=== PATIENT | female | born 1955 | race African-American/Black ===

== ENCOUNTER 2022-05-18 12:02 | Emergency (ER) | payer OTHER ==
--- OUTSIDE RECORDS SUMMARY | 2022-05-18 12:15 | XMS REPORT | Continuity of Care Document ---
:1955 Author Organization [facility] t Address [address] [place] [address] Care Team Providers Name Role Phone Ameya Mckinnon DO Primary Care Physician SHARMIN PATEL Attending Clinician Unavailable CHARLY ROJAS Attending Clinician Unavailable RAJ REYES Attending Clinician Unavailable VIGNESH JARAMILLO K.HDavid Attending Clinician Unavailable AWA PANDYA Attending Clinician Unavailable BRI ALONZO Attending Clinician Unavailable Clint MTZ Sendrachel K.H. Attending Clinician Raj Reyes MD Attending Clinician Lin Gordon PA-C Attending Clinician Pob, Adc Lab Main Attending Clinician Unavailable Sharmin Patel MD Attending Clinician Mary Ortiz Attending Clinician MARY SARGENT Attending Clinician Unavailable Charly Rojas MD Attending Clinician Doctor Unassigned, [place] Attending Clinician Unavailable Vaccine, Ang Db Cbc Fam Attending Clinician Unavailable WENDY Attending Clinician Unavailable Aliza Sheets MD Attending Clinician ALIZA SHEETS Attending Clinician Unavailable LEE ANN FLOREZ Attending Clinician Unavailable Lee Ann Florez MD Attending Clinician Josue Lee PA-C Attending Clinician Ameya Mckinnon DO Attending Clinician Unavailable ABEL CORTÉS Attending Clinician Unavailable Sri Haynes RN Attending Clinician Unavailable Only, Archie Bonilla Test Attending Clinician Unavailable Ebdmitry RELIEF SALESPERSONAlex Mi Attending Clinician EBALEX RODGERS Attending Clinician Unavailable Fish MBBS, Tamara Attending Clinician Unavailable Nurse, Adc Pob Immunization Attending Clinician Unavailable Kian Vazquez DO Attending Clinician KIAN VAZQUEZ Attending Clinician Unavailable [facility] Attending Clinician Unavailable LILIANE SERRANO Attending Clinician Unavailable Liliane Serrano DO Attending Clinician Only, Adc Test Attending Clinician Unavailable Virgie Calle MD Attending Clinician VIRGIE CALLE Attending Clinician Unavailable JOSUE LEE Attending Clinician Unavailable RENEE STROUD Attending Clinician Unavailable Lisbet Valle MD Attending Clinician LISBET VALLE Attending Clinician Unavailable 2, Adc Lab Attending Clinician Unavailable Renee Stroud MD Attending Clinician Gypsy Florez MD Attending Clinician [phone] LILLIAN BOYD Attending Clinician Unavailable Lillian Boyd MD Attending Clinician Pc, Adc Vascular Room 1 - Attending Clinician Unavailable Theodore Le MD Attending Clinician Visit, Adc Nurse Attending Clinician Unavailable THEODORE LE Attending Clinician Unavailable Mando Thompson MD Attending Clinician Provider, Clc Cardiac Attending Clinician Unavailable 2, Clc Cardiac Proc Room Attending Clinician Unavailable ADOLFO REYEZ Attending Clinician Unavailable Trisha SERRANO, Jeana Young Attending Clinician Unavailable Ameya Stewart MD Attending Clinician 1, Ad[facility] Lab Attending Clinician Unavailable Pc, Adc Echo Room 1 - Attending Clinician Unavailable Oz Romano MD Attending Clinician OZ ROMANO Attending Clinician Unavailable [facility] Attending Clinician Unavailable Aissatou MTZ, Adolfo Harrison Attending Clinician Mahin MTZ, Richard Azevedo Attending Clinician Unavailable GYPSY FLOREZ Attending Clinician Unavailable Mily Orozco DO Attending Clinician MILY OROZCO Attending Clinician Unavailable MILY OORZCO Attending Clinician Unavailable Pauline Rivas Attending Clinician Raman MTZ, Camila Moyer Attending Clinician HANG PIERSON Attending Clinician Unavailable Jeannine MTZ, Kostas Varghese Attending Clinician [phone] Arthur Chavez Attending Clinician Lab, Kelvni Barba Attending Clinician Unavailable LIZA SOLORIO Attending Clinician Unavailable SHARMIN PATEL Admitting Clinician Unavailable WENDY Admitting Clinician Unavailable LILIANE SERRANO Admitting Clinician Unavailable Liliane Serrano DO Admitting Clinician Sharmin Patel MD Admitting Clinician Payers Payer Name Policy Type Policy Number Effective Date Expiration Date S [facility] [id number] 2011 00:00:00 PLUS Problems Condition Condition Condition Status Onset Resolution Last Treating Co mments Source Name Details Category Date Date Treatment Clinician Date Hx of Hx of Disease Active 2020-06 Overview: [facility] [place] [facility] s colonic colonic - Form[place] ity o f polyp polyp 00:00: g of this [place] note Medical might be Branch different from the original. Added automatic ally from request for surgery [id number] Other Other Disease Active 2020-06 Overview: Univer s constipati constipati 2-31 [place] ity of on on 00:00: g of this [place] note Medical might be Branch different from the original. Added automatic ally from request for surgery [id number] Chronic Chronic Disease Active Univers GERD GERD 8-20 ity of 00:00: [address] Branch Obesity Obesity Disease Active Univers (BMI (BMI 8-20 ity of 30-39.9) 30-39.9) 00:00: [place] 00 Medical Branch Postoperat Postoperat Disease Active Overview : Univers jacqueline jacqueline 3-26 [place] ity of hematoma hematoma 00:00: g of this [place] as of of 00 note Medical subcutaneo subcutaneo might be Branch us tissue us tissue different following following from the non-dermat non-dermat original. ologic ologic Added procedure procedure automatic ally from request for surgery [id number] Secondary Secondary Disease Active Overview: Univers malignancy malignancy 08-09 [place] ity of of of 00:00: g of this [place] axillary axillary 00 note Medica l node node might be Branch different from the original. Added automatic ally from request for surgery [id number] Malignant Malignant Disease Active 2019-06 Overview: Univers neoplasm neoplasm 2 Formattin ity of of of 00:00: g of this [place] overlappin overlappin 00 note Me dical g sites of g sites of might be Branch left left different breast in breast in from the female, female, original. estrogen estrogen Added receptor receptor automatic positive positive ally from request for surgery [id number] (HFpEF) (HFpEF) Disease Active 2019-06 Overview: Univ ers heart heart 2 Form[place] ity of failure failure 00:00: g of this [place] with with 00 note Medical preserved preserved might be Br anch ejection ejection different fraction fraction from the original. Added automatic ally from request for surgery [id number] Hypertensi Hypertensi Disease Active 2018-06 U nivers on due to on due to 2-17 [place] of endocrine endocrine 00:[place] 00 Medica [place] Branch Primary Primary Disease Active Univers osteoarthr osteoarthr - it y of itis of itis of 00:00: [place] right knee right knee 00 Me dical Branch Hx of Hx of Disease Active 2016-06 Overview: Univer s syphilis syphilis 2 Formattin ity of 00:00: g of this [place] 00 note Medical might be Branch different from the original. IgG positive, TPA positive, RPR negative 05/2017 (consiste nt with history) Prediabete Prediabete Disease Active 2016-06 U nivers s s 1-03 ity of 00:00: [place] 00 Medical Branch Tear of Tear of Disease Active Overview: Univ ers meniscus meniscus 6-16 Form[place] ity of of right of right 00:00: g of this [place] knee as knee as 00 note Medical current current might be Branch injury, injury, different unspecifie unspecifie from the d d original. 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 nivers teronism teronism 2-14 ity of 00:00: [place] [facility] BV BV Disease Active 2013-06 Univers (bacterial (bacterial 1-17 it y of vaginosis) vaginosis) [place] Urinary Urinary Disease Recurre 2013-06 Univer s tract tract nce 1-08 ity of infection, infection, [place] site not site not 00 Medica l specified specified Bran ch Pulmonary Pulmonary Disease Active 2012-06 Uni vers hypertensi hypertensi 1-22 it y of on on 00:00: [place] [facility] Papanicola Papanicola Disease Active U nivers ou smear ou smear 8-21 ity of of cervix of cervix 00:[place] with low with low 00 Medica l grade grade 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 ICD10 Diagnosis Term Design Sales Consultant Utility HLD HLD Disease Active Univers (hyperlipi (hyperlipi 5-30 it y of demia) demia) 00:00: [place] [facility] Well woman Well woman Disease Active U nivers exam exam 3-25 ity of 00:00: [place] [facility] Vaginal Vaginal Disease Active Univers atrophy atrophy 3-25 ity of 00:00: [place] [facility] Mixed Mixed Disease Active Univers incontinen incontinen 3-25 it y of ce ce 00:00: 00 Medical Branch Urinary Urinary Disease Active Univers frequency frequency 3-25 ity of 00:00: Medical Branch Dyspnea Dyspnea Disease Active Overview: Univ ers and and 5-24 Formattin ity of respirator respirator 00:00: g of this [place] y y 00 note Medical abnormalit abnormalit might be Branch y y different from the original. ICD10 Diagnosis Term Design Sales Consultant Utility Restrictiv Restrictiv Disease Active U nivers e airway e airway 5-24 ity of disease disease 00:00: [place] [facility] Cough Cough Disease Active Univers 5-24 ity of 00:00: Medical Branch Pain in Pain in Disease Active Univers female female 8-23 ity of pelvis pelvis 00:00: Medical Branch S/P carpal S/P carpal Disease Active U nivers tunnel tunnel 5-24 ity of release release 00:00: Medical Branch Urinary Urinary Disease Resolve 2013-08-03 2013-08-03 Univers urgency urgency d 3-25 00:00:00 21:09:45 ity of 00:00: Medical Branch Carpal Carpal Disease Resolve 2013-08-03 2013-08-03 Univers tunnel tunnel d 3-04 00:00:00 21:09:33 ity of syndrome syndrome 00:00: [place] 00 Medical Branch Allergies, Adverse Reactions, Alerts Allergy Allergy Status Severity Reaction(s) Onset Inactive Treating Comm ents Source Name Type Date Date Clinician LISINOPR DRUG Active COUGH Univers IL INGREDI 12-15 ity of 00:00: [place] [facility] Lisinopr Propensi Active Cough Univer s il ty to 12-15 ity of adverse 00:00: [place] reaction Medical s Branch Social History Social Habit Start Date Stop Date Quantity Comments Source Exposure to 2022-05-04 2022-05-[address] [facility] SARS-CoV-2 (event) 00:00:00 13:48:00 [facility] Alcohol intake 2022-04-18 2022-04-18 Current University of 00:00:00 00:00:00 non-drinker of [facility] alcohol Branch (finding) Cigarettes smoked 2022-03-16 2022-03-16 Univers ity of current (pack per 00:00:00 00:00:00 ) - Reported Branch Cigarette 2022-03-16 2022-03-16 University of pack-years 00:00:00 00:00:00 [facility] Tobacco use and 2022-03-16 2022-03-16 Smokeless Universit y of exposure 00:00:00 00:00:00 tobacco non-user [facility] Tobacco Comment 2013-08-03 2013-08-03 +30ppd history Unive rsity of 00:00:00 00:00:00 [facility] History of tobacco 2013-06-02 Cigarette Smoker University of use 00:00:00 [facility] Sex [birth year] [facility] y of 00:00:00 00:00:00 [facility] Smoking Status Start Date Stop Date Source Ex-smoker 2022-03-16 00:00:00 2022-03-16 00:00:00 Universi ty of [facility] Medications Ordered Filled Start Stop Current Ordering Indication Dosage Frequency Signature Comments Components Source Medication Medication Date Date Medication? Clinician (SIG) Name Name selam 2021-06 Yes [id number] 10mg Take 1 Univers n 10 mg 1-30 tablet by ity of tablet 00:00: mouth at [place] [address] bedtime. [facility] anastrozole 2021-06 Yes [id number] 1mg TAKE 1 Univers 1 mg tablet 1-29 TABLET BY ity of 00:00: MOUTH [place] DAILY [facility] anastrozole 2021-06 Yes [id number] 1mg TAKE 1 Univers 1 mg tablet 1-29 TABLET BY ity of 00:00: MOUTH [place] 00 DAILY [facility] aspirin 81 2021-06 Yes 81mg Take 81 mg U nivers mg chewable 1-18 by mouth ity of tablet 08:54: daily. [address] aspirin 81 2021-06 Yes 81mg Take 81 mg U nivers mg chewable 1-18 by mouth ity of tablet 08:54: daily. [address] aspirin 81 2021-06 Yes 81mg Take 81 mg U nivers mg chewable 1-18 by mouth ity of tablet 08:54: daily. [address] aspirin 81 2021-06 Yes 81mg Take 81 mg U nivers mg chewable 1-18 by mouth ity of tablet 08:54: daily. [address] aspirin 81 2021-06 Yes 81mg Take 81 mg U nivers mg chewable 1-18 by mouth ity of tablet 08:54: daily. [address] aspirin 81 2021-06 Yes 81mg Take 81 mg U nivers mg chewable 1-18 by mouth ity of tablet 08:54: daily. [address] aspirin 81 2021-06 Yes 81mg Take 81 mg U nivers mg chewable 1-18 by mouth ity of tablet 08:54: daily. [address] cetirizine 2021-06 Yes [id number] 10mg Take 1 U nivers (ZYRTEC) 10 1-02 tablet by ity of mg tablet 00:00: [place] the Medical morning. Branch fluticasone 2021-06 Yes [id number] 1{spray Use 1 Univers propionate 1-02 } [place] in ity o f 50 00:00: each [place] mcg/actuati 00 nostril in Me dical on nasal the Branch spray morning. albuterol 2021-06 Yes [id number] 2{puff} Inhale 2 Univers (PROVENTIL 1-02 Puffs ity of HFA) 90 00:00: every 6 [place] mcg/actuati 00 (six) Medical on inhaler hours as Branc h needed for Shortness of Breath. benzonatate 2021-06 Yes [id number] 100mg Take 1 Univers (TESSALON 1-02 capsule by ity of CURTIS) 100 00:00: mouth [place] mg capsule 00 every 8 Medica l (eight) Branch hours as needed for Cough. cetirizine 2021-06 Yes [id number] 10mg Take 1 U nivers (ZYRTEC) 10 1-02 tablet by ity of mg tablet 00:00: [place] the Medical morning. Branch fluticasone 2021-06 Yes [id number] 1{spray Use 1 Univers propionate 1-02 } [place] ity o f 50 00:00: each [place] mcg/actuati 00 nostril in Me dical on nasal the Branch spray morning. albuterol 2021-06 Yes [id number] 2{puff} Inhale 2 Univers (PROVENTIL 1-02 Puffs ity of HFA) 90 00:00: every 6 [place] mcg/actuati 00 (six) Medical on inhaler hours as Branc h needed for Shortness of Breath. benzonatate 2021-06 Yes [id number] 100mg Take 1 Univers (TESSALON 1-02 capsule by ity of PERLES) 100 00:00: mouth [place] mg capsule 00 every 8 Medica l (eight) Branch hours as needed for Cough. cetirizine 2021-06 Yes [id number] 10mg Take 1 U nivers (ZYRTEC) 10 1-02 tablet by ity of mg tablet 00:00: [place] 00 the Medical morning. Branch fluticasone 2021-06 Yes [id number] 1{spray Use 1 Univers propionate 1-02 } [place] ity o f 50 00:00: each [place] mcg/actuati 00 nostril in Me dical on nasal the Branch spray morning. albuterol 2021-06 Yes [id number] 2{puff} Inhale 2 Univers (PROVENTIL 1-02 Puffs ity of HFA) 90 00:00: every 6 [place] mcg/actuati 00 (six) Medical on inhaler hours as Branc h needed for Shortness of Breath. benzonatate 2021-06 Yes [id number] 100mg Take 1 Univers (TESSALON 1-02 capsule by ity of CURTIS) 100 00:00: mouth [place] mg capsule 00 every 8 Medica l (eight) Branch hours as needed for Cough. cetirizine 2021-06 Yes [id number] 10mg Take 1 U nivers (ZYRTEC) 10 1-02 tablet by ity of mg tablet 00:00: [place] 00 the Medical morning. Branch fluticasone 2021-06 Yes [id number] 1{spray Use 1 Univers propionate 1-02 } [place] ity o f 50 00:00: each [place] mcg/actuati 00 nostril in Me dical on nasal the Branch spray morning. albuterol 2021-06 Yes [id number] 2{puff} Inhale 2 Univers (PROVENTIL 1-02 Puffs ity of HFA) 90 00:00: every 6 [place] mcg/actuati 00 (six) Medical on inhaler hours as Branc h needed for Shortness of Breath. benzonatate 2021-06 Yes [id number] 100mg Take 1 Univers (TESSALON 1-02 capsule by ity of PERLES) 100 00:00: mouth [place] mg capsule 00 every 8 Medica l (eight) Branch hours as needed for Cough. cetirizine 2021-06 Yes [id number] 10mg Take 1 U nivers (ZYRTEC) 10 1-02 tablet by ity of mg tablet 00:00: [place] 00 the Medical morning. Branch fluticasone 2021-06 Yes [id number] 1{spray Use 1 Univers propionate 1-02 } [place] ity o f 50 00:00: each [place] mcg/actuati 00 nostril in Me dical on nasal the Branch spray morning. albuterol 2021-06 Yes [id number] 2{puff} Inhale 2 Univers (PROVENTIL 1-02 Puffs ity of HFA) 90 00:00: every 6 [place] mcg/actuati 00 (six) Medical on inhaler hours as Branc h needed for Shortness of Breath. benzonatate 2021-06 Yes [id number] 100mg Take 1 Univers (TESSALON 1-02 capsule by ity of PERLES) 100 00:00: mouth [place] mg capsule 00 every 8 Medica l (eight) Branch hours as needed for Cough. cetirizine 2021-06 Yes [id number] 10mg Take 1 U nivers (ZYRTEC) 10 1-02 tablet by ity of mg tablet 00:00: [place] the Medical morning. Branch fluticasone 2021-06 Yes [id number] 1{spray Use 1 Univers propionate 1-02 } [place] ity o f 50 00:00: each [place] mcg/actuati 00 nostril in Me dical on nasal the Branch spray morning. albuterol 2021-06 Yes [id number] 2{puff} Inhale 2 Univers (PROVENTIL 1-02 Puffs ity of HFA) 90 00:00: every 6 [place] mcg/actuati 00 (six) Medical on inhaler hours as Branc h needed for Shortness of Breath. benzonatate 2021-06 Yes [id number] 100mg Take 1 Univers (TESSALON 1-02 capsule by ity of PERLES) 100 00:00: mouth [place] mg capsule 00 every 8 Medica l (eight) Branch hours as needed for Cough. cetirizine 2021-06 Yes [id number] 10mg Take 1 U nivers (ZYRTEC) 10 1-02 tablet by ity of mg tablet 00:00: [place] 00 the Medical morning. Branch fluticasone 2021-06 Yes [id number] 1{spray Use 1 Univers propionate 1-02 } [place] ity o f 50 00:00: each [place] mcg/actuati 00 nostril in Me dical on nasal the Branch spray morning. albuterol 2021-06 Yes [id number] 2{puff} Inhale 2 Univers (PROVENTIL 1-02 Puffs ity of HFA) 90 00:00: every 6 [place] mcg/actuati 00 (six) Medical on inhaler hours as Branc h needed for Shortness of Breath. benzonatate 2021-06 Yes [id number] 100mg Take 1 Univers (TESSALON 1-02 capsule by [facility]) 100 00:00: mouth [place] mg capsule 00 every 8 Medica l (eight) Branch hours as needed for Cough. cetirizine 2021-06 Yes [id number] 10mg Take 1 U nivers (ZYRTEC) 10 1-02 tablet by ity of mg tablet 00:00: [place] 00 the Medical morning. Branch fluticasone 2021-06 Yes [id number] 1{spray Use 1 Univers propionate 1-02 } [place] ity o f 50 00:00: each [place] mcg/actuati 00 nostril in Me dical on nasal the Branch spray morning. albuterol 2021-06 Yes [id number] 2{puff} Inhale 2 Univers (PROVENTIL 1-02 Puffs ity of HFA) 90 00:00: every 6 [place] mcg/actuati 00 (six) Medical on inhaler hours as Branc h needed for Shortness of Breath. benzonatate 2021-06 Yes [id number] 100mg Take 1 Univers (TESSALON 1-02 capsule by ity of PERLES) 100 00:00: mouth [place] mg capsule 00 every 8 Medica l (eight) Branch hours as needed for Cough. cetirizine 2021-06 Yes [id number] 10mg Take 1 U nivers (ZYRTEC) 10 1-02 tablet by ity of mg tablet 00:00: [place] 00 the Medical morning. Branch fluticasone 2021-06 Yes [id number] 1{spray Use 1 Univers propionate 1-02 } [place] ity o f 50 00:00: each [place] mcg/actuati 00 nostril in Me dical on nasal the Branch spray morning. albuterol 2021-06 Yes [id number] 2{puff} Inhale 2 Univers (PROVENTIL 1-02 Puffs ity of HFA) 90 00:00: every 6 [place] mcg/actuati 00 (six) Medical on inhaler hours as Branc h needed for Shortness of Breath. benzonatate 2021-06 Yes [id number] 100mg Take 1 Univers (TESSALON 1-02 capsule by ity of PERLES) 100 00:00: mouth [place] mg capsule 00 every 8 Medica l (eight) Branch hours as needed for Cough. cetirizine 2021-06 Yes [id number] 10mg Take 1 U nivers (ZYRTEC) 10 1-02 tablet by ity of mg tablet 00:00: [place] 00 the Medical morning. Branch fluticasone 2021-06 Yes [id number] 1{spray Use 1 Univers propionate 1-02 } [place] ity o f 50 00:00: each [place] mcg/actuati 00 nostril in Me dical on nasal the Branch spray morning. albuterol 2021-06 Yes [id number] 2{puff} Inhale 2 Univers (PROVENTIL 1-02 Puffs ity of HFA) 90 00:00: every 6 [place] mcg/actuati 00 (six) Medical on inhaler hours as Branc h needed for Shortness of Breath. benzonatate 2021-06 Yes [id number] 100mg Take 1 Univers (TESSALON 1-02 capsule by ity of PERLES) 100 00:00: mouth [place] mg capsule 00 every 8 Medica l (eight) Branch hours as needed for Cough. cetirizine 2021-06 Yes [id number] 10mg Take 1 U nivers (ZYRTEC) 10 1-02 tablet by ity of mg tablet 00:00: [place] 00 the Medical morning. Branch fluticasone 2021-06 Yes [id number] 1{spray Use 1 Univers propionate 1-02 } [place] ity o f 50 00:00: each [place] mcg/actuati 00 nostril in Me dical on nasal the Branch spray morning. albuterol 2021-06 Yes [id number] 2{puff} Inhale 2 Univers (PROVENTIL 1-02 Puffs ity of HFA) 90 00:00: every 6 [place] mcg/actuati 00 (six) Medical on inhaler hours as Branc h needed for Shortness of Breath. benzonatate 2021-06 Yes [id number] 100mg Take 1 Univers (TESSALON 1-02 capsule by ity of PERLES) 100 00:00: mouth [place] mg capsule 00 every 8 Medica l (eight) Branch hours as needed for Cough. cetirizine 2021-06 Yes [id number] 10mg Take 1 U nivers (ZYRTEC) 10 1-02 tablet by ity of mg tablet 00:00: mouth in [place] [facility] the Medical morning. Branch fluticasone 2021-06 Yes [id number] 1{spray Use 1 Univers propionate 1-02 } [place] in ity o f 50 00:00: each [place] mcg/actuati 00 nostril in Me dical on nasal the Branch spray morning. albuterol 2021-06 Yes [id number] 2{puff} Inhale 2 Univers (PROVENTIL 1-02 Puffs ity of HFA) 90 00:00: every 6 [place] mcg/actuati 00 (six) Medical on inhaler hours as Branc h needed for Shortness of Breath. benzonatate 2021-06 Yes [id number] 100mg Take 1 Univers (TESSALON 1-02 capsule by ity of PERLES) 100 00:00: mouth [place] mg capsule 00 every 8 Medica l (eight) Branch hours as needed for Cough. hydrALAZINE 2021-06 Yes [id number] 25mg Take 1 Univers 25 mg 0-12 tablet by ity of tablet 00:00: mouth in [place] 00 the Medical morning Branch and 1 tablet in the evening. hydrALAZINE 2021-06 Yes [id number] 25mg Take 1 Univers 25 mg 0-12 tablet by ity of tablet 00:00: mouth in [place] [address] the Medical morning Branch and 1 tablet in the evening. hydrALAZINE 2021-06 Yes [id number] 25mg Take 1 Univers 25 mg 0-12 tablet by ity of tablet 00:00: mouth in [place] [address] the Medical morning Branch and 1 tablet in the evening. hydrALAZINE 2021-06 Yes [id number] 25mg Take 1 Univers 25 mg 0-12 tablet by ity of tablet 00:00: mouth in [place] [address] the Medical morning Branch and 1 tablet in the evening. hydrALAZINE 2021-06 Yes [id number] 25mg Take 1 Univers 25 mg 0-12 tablet by ity of tablet 00:00: mouth in [place] [address] the Medical morning Branch and 1 tablet in the evening. hydrALAZINE 2021-06 Yes [id number] 25mg Take 1 Univers 25 mg 0-12 tablet by ity of tablet 00:00: mouth in [place] [address] the Medical morning Branch and 1 tablet in the evening. hydrALAZINE 2021-06 Yes [id number] 25mg Take 1 Univers 25 mg 0-12 tablet by ity of tablet 00:00: mouth in [place] [address] the Medical morning Branch and 1 tablet in the evening. hydrALAZINE 2021-06 Yes [id number] 25mg Take 1 Univers 25 mg 0-12 tablet by ity of tablet 00:00: mouth in [place] [address] the Medical morning Branch and 1 tablet in the evening. hydrALAZINE 2021-06 Yes [id number] 25mg Take 1 Univers 25 mg 0-12 tablet by ity of tablet 00:00: mouth in [place] [address] the Medical morning [place] and 1 tablet in the evening. hydrALAZINE 2021-06 Yes [id number] 25mg Take 1 Univers 25 mg 0-12 tablet by ity of tablet 00:00: mouth in [address] Medical morning Branch and 1 tablet in the evening. hydrALAZINE 2021-06 Yes [id number] 25mg Take 1 Univers 25 mg 0-12 tablet by ity of tablet 00:00: mouth in [place] [address] the Medical morning [place] and 1 tablet in the evening. hydrALAZINE 2021-06 Yes [id number] 25mg Take 1 [facility] 25 mg 0-12 tablet by ity of tablet 00:00: mouth in [address] Medical morning [place] and 1 tablet in the evening. hydrALAZINE 2021-06 Yes [id number] 25mg Take 1 [facility] 25 mg 0-12 tablet by ity of tablet 00:00: mouth in [place] 00 the Medical morning Branch and 1 tablet in the evening. hydrALAZINE 2021-06 Yes [id number] 25mg Take 1 [facility] 25 mg 0-12 tablet by ity of tablet 00:00: mouth in [place] 00 the Medical morning Branch and 1 tablet in the evening. aspirin 81 0 Yes 81mg Take 81 mg [facility] mg chewable 9-30 by mouth ity of tablet 11:04: daily. [address] aspirin 81 0 Yes 81mg Take 81 mg [facility] mg chewable 9-30 by mouth ity of tablet 11:04: daily. [address] aspirin 81 0 Yes 81mg Take 81 mg [facility] mg chewable 9-30 by mouth ity of tablet 11:04: daily. [address] aspirin 81 2021-0 Yes 81mg Take 81 mg [facility] mg chewable 9-30 by mouth ity of tablet 11:04: daily. [address] aspirin 81 0 Yes 81mg Take 81 mg [facility] mg chewable 9-30 by mouth ity of tablet 11:04: daily. [address] aspirin 81 2021-0 Yes 81mg Take 81 mg [facility] mg chewable 9-30 by mouth ity of tablet 11:04: daily. [address] aspirin 81 2021-0 Yes 81mg Take 81 mg [facility] mg chewable 9-30 by mouth ity of tablet 11:04: daily. [address] aspirin 81 2021-0 Yes 81mg Take 81 mg [facility] mg chewable 9-30 by mouth ity of tablet 11:04: daily. [address] aspirin 81 2021-0 Yes 81mg Take 81 mg [facility] mg chewable 9-30 by mouth ity of tablet 11:04: daily. [address] aspirin 81 2021-0 Yes 81mg Take 81 mg [facility] mg chewable 9-30 by mouth ity of tablet 11:04: daily. [address] aspirin 81 2021-0 Yes 81mg Take 81 mg [facility] mg chewable 9-30 by mouth ity of tablet 11:04: daily. [address] losartan 50 2021-0 Yes 50mg Take 1 [facility] mg tablet 9-21 tablet by ity o f 00:00: mouth in [place] 00 the Medical morning Branch and 1 tablet in the evening. losartan 50 2022-0 Yes 50mg Take 1 [facility] mg tablet 9-21 tablet by ity o f 00:00: mouth in [place] 00 the Medical morning Branch and 1 tablet in the evening. losartan 50 2022-0 Yes 50mg Take 1 [facility] mg tablet 9-21 tablet by ity o f 00:00: mouth in [place] 00 the Medical morning Branch and 1 tablet in the evening. losartan 50 2022-0 Yes 50mg Take 1 [facility] mg tablet 9-21 tablet by ity o f 00:00: mouth in [place] 00 the Medical morning Branch and 1 tablet in the evening. losartan 50 2022-0 Yes 50mg Take 1 [facility] mg tablet 9-21 tablet by ity o f 00:00: mouth in [place] 00 the Medical morning Branch and 1 tablet in the evening. losartan 50 2022-0 Yes 50mg Take 1 [facility] mg tablet 9-21 tablet by ity o f 00:00: mouth in [place] 00 the Medical morning Branch and 1 tablet in the evening. losartan 50 2022-0 Yes 50mg Take 1 [facility] mg tablet 9-21 tablet by ity o f 00:00: mouth in [place] 00 the Medical morning Branch and 1 tablet in the evening. losartan 50 2022-0 Yes 50mg Take 1 [facility] mg tablet 9-21 tablet by ity o f 00:00: mouth in [place] 00 the Medical morning Branch and 1 tablet in the evening. losartan 50 2022-0 Yes 50mg Take 1 [facility] mg tablet 9-21 tablet by ity o f 00:00: mouth in [place] 00 the Medical morning Branch and 1 tablet in the evening. losartan 50 2022-0 Yes 50mg Take 1 [facility] mg tablet 9-21 tablet by ity o f 00:00: mouth in [place] 00 the Medical morning Branch and 1 tablet in the evening. losartan 50 2022-0 Yes 50mg Take 1 [facility] mg tablet 9-21 tablet by ity o f 00:00: mouth in [place] 00 the Medical morning Branch and 1 tablet in the evening. losartan 50 2022-0 Yes 50mg Take 1 [facility] mg tablet 9-21 tablet by ity o f 00:00: mouth in [place] 00 the Medical morning Branch and 1 tablet in the evening. losartan 50 2022-0 Yes 50mg Take 1 [facility] mg tablet 9-21 tablet by ity o f 00:00: mouth in [place] 00 the Medical morning Branch and 1 tablet in the evening. losartan 50 2022-0 Yes 50mg Take 1 [facility] mg tablet 9-21 tablet by ity o f 00:00: mouth in [place] 00 the Medical morning Branch and 1 tablet in the evening. losartan 50 2022-0 Yes 50mg Take 1 [facility] mg tablet 9-21 tablet by ity o f 00:00: mouth in [place] 00 the Medical morning Branch and 1 tablet in the evening. losartan 50 2022-0 Yes 50mg Take 1 [facility] mg tablet 9-21 tablet by ity o f 00:00: mouth in [place] 00 the Medical morning Branch and 1 tablet in the evening. losartan 50 2022-0 Yes 50mg Take 1 [facility] mg tablet 9-21 tablet by ity o f 00:00: mouth in [place] 00 the Medical morning Branch and 1 tablet in the evening. losartan 50 2022-0 Yes 50mg Take 1 [facility] mg tablet 9-21 tablet by ity o f 00:00: mouth in [place] 00 the Medical morning Branch and 1 tablet in the evening. losartan 50 2022-0 Yes 50mg Take 1 [facility] mg tablet 9-21 tablet by ity o f 00:00: mouth in [place] 00 the Medical morning Branch and 1 tablet in the evening. losartan 50 2022-0 Yes 50mg Take 1 [facility] mg tablet 9-21 tablet by ity o f 00:00: mouth in [place] 00 the Medical morning Branch and 1 tablet in the evening. furosemide 2022-0 Yes [id number] 20mg Take 0.5 [facility] 40 mg 9-12 tablets by ity of tablet 00:00: mouth [place] 00 every Medical morning. Branch furosemide 2022-0 Yes [id number] 20mg Take 0.5 [facility] 40 mg 9-12 tablets by ity of tablet 00:00: mouth [place] 00 every Medical morning. Branch furosemide 2022-0 Yes [id number] 20mg Take 0.5 [facility] 40 mg 9-12 tablets by ity of tablet 00:00: mouth [place] 00 every Medical morning. Branch furosemide 2022-0 Yes [id number] 20mg Take 0.5 [facility] 40 mg 9-12 tablets by ity of tablet 00:00: mouth [place] 00 every Medical morning. Branch furosemide 2022-0 Yes [id number] 20mg Take 0.5 [facility] 40 mg 9-12 tablets by ity of tablet 00:00: mouth [place] 00 every Medical morning. Branch furosemide 2022-0 Yes [id number] 20mg Take 0.5 [facility] 40 mg 9-12 tablets by ity of tablet 00:00: mouth [place] 00 every Medical morning. Branch furosemide 2022-0 Yes [id number] 20mg Take 0.5 [facility] 40 mg 9-12 tablets by ity of tablet 00:00: mouth [place] 00 every Medical morning. Branch furosemide 2-0 Yes [id number] 20mg Take 0.5 [facility] 40 mg 9-12 tablets by ity of tablet 00:00: mouth [place] 00 every Medical morning. Branch furosemide 2-0 Yes [id number] 20mg Take 0.5 [facility] 40 mg 9-12 tablets by ity of tablet 00:00: mouth [place] 00 every Medical morning. Branch furosemide 2-0 Yes [id number] 20mg Take 0.5 [facility] 40 mg 9-12 tablets by ity of tablet 00:00: mouth [place] 00 every Medical morning. Branch furosemide 2021-0 Yes [id number] 20mg Take 0.5 [facility] 40 mg 9-12 tablets by ity of tablet 00:00: mouth [place] 00 every Medical morning. Branch furosemide 2-0 Yes [id number] 20mg Take 0.5 [facility] 40 mg 9-12 tablets by ity of tablet 00:00: mouth [place] 00 every Medical morning. Branch furosemide 2022-0 Yes [id number] 20mg Take 0.5 [facility] 40 mg 9-12 tablets by ity of tablet 00:00: mouth [place] 00 every Medical morning. Branch furosemide 2022-0 Yes [id number] 20mg Take 0.5 [facility] 40 mg 9-12 tablets by ity of tablet 00:00: mouth [place] 00 every Medical morning. Branch furosemide 2022-0 Yes [id number] 20mg Take 0.5 [facility] 40 mg 9-12 tablets by ity of tablet 00:00: mouth [place] 00 every Medical morning. Branch furosemide 2022-0 Yes [id number] 20mg Take 0.5 [facility] 40 mg 9-12 tablets by ity of tablet 00:00: mouth [place] 00 every Medical morning. Branch furosemide 2022-0 Yes [id number] 20mg Take 0.5 [facility] 40 mg 9-12 tablets by ity of tablet 00:00: mouth [place] 00 every Medical morning. Branch furosemide 2021-0 Yes [id number] 20mg Take 0.5 [facility] 40 mg 9-12 tablets by ity of tablet 00:00: mouth [place] 00 every Medical morning. Branch furosemide 2021-0 Yes [id number] 20mg Take 0.5 [facility] 40 mg 9-12 tablets by ity of tablet 00:00: mouth [place] 00 every Medical morning. Branch furosemide 0 Yes [id number] 20mg Take 0.5 [facility] 40 mg 9-12 tablets by ity of tablet 00:00: mouth [place] 00 every Medical morning. Branch furosemide 0 Yes [id number] 20mg Take 0.5 [facility] 40 mg 9-12 tablets by ity of tablet 00:00: mouth [place] 00 every Medical morning. Branch albuterol Yes [id number] 2{puff} Inhale 2 [facility] (PROVENTIL 7-12 Puffs ity of HFA) 90 00:00: every 6 [place] mcg/actuati 00 (six) Medical on inhaler hours as Branc h needed for Wheezing or Shortness of Breath. meclizine Yes [id number] 25mg Take 1 [facility] 25 mg 7-12 tablet by ity of tablet 00:00: mouth 3 00 (three) Medical times [place] daily as needed for Dizziness. fluticasone 0 Yes [id number] 1{spray Use 1 [facility] propionate 7-12 } [place] ity o f 50 00:00: each [place] mcg/actuati 00 nostril in Pa dical on nasal the Branch spray morning. cetirizine 2021-0 Yes [id number] 10mg Take 1 [facility] (ZYRTEC) 10 7-12 tablet by ity of mg tablet 00:00: mouth in [facility] 00 the Medical morning. Branch spironolact 2021-0 Yes [id number] 50mg Take 1 [facility] one 50 mg 7-12 tablet by ity o f tablet 00:00: mouth in [place] 00 the Medical morning. Branch albuterol 2021-0 Yes [id number] 2{puff} Inhale 2 [facility] (PROVENTIL 7-12 Puffs ity of HFA) 90 00:00: every 6 [place] mcg/actuati 00 (six) Medical on inhaler hours as Branc h needed for Wheezing or Shortness of Breath. meclizine 2021-0 Yes [id number] 25mg Take 1 [facility] 25 mg 7-12 tablet by ity of tablet 00:00: mouth 3 [place] 00 (three) Medical times Branch daily as needed for Dizziness. fluticasone 2021-0 Yes [id number] 1{spray Use 1 [facility] propionate 7-12 } [place] ity o f 50 00:00: each [place] mcg/actuati 00 nostril in Me dical on nasal the Branch spray morning. cetirizine 2021-0 Yes [id number] 10mg Take 1 [facility] (ZYRTEC) 10 7-12 tablet by ity of mg tablet 00:00: mouth in [facility] the Medical morning. Branch spironolact 0 Yes [id number] 50mg Take 1 [facility] one 50 mg 7-12 tablet by ity o f tablet 00:00: mouth in [place] the Medical morning. Branch albuterol Yes [id number] 2{puff} Inhale 2 [facility] (PROVENTIL 7-12 Puffs ity of HFA) 90 00:00: every 6 [place] mcg/actuati 00 (six) Medical on inhaler hours as Branc h needed for Wheezing or Shortness of Breath. meclizine 2021-0 Yes [id number] 25mg Take 1 [facility] 25 mg 7-12 tablet by ity of tablet 00:00: mouth 3 [place] 00 (three) Medical times Branch daily as needed for Dizziness. fluticasone 2021-0 Yes [id number] 1{spray Use 1 [facility] propionate 7-12 } [place] ity o f 50 00:00: each [place] mcg/actuati 00 nostril in Me dical on nasal the Branch spray morning. cetirizine 2021-0 Yes [id number] 10mg Take 1 [facility] (ZYRTEC) 10 7-12 tablet by ity of mg tablet 00:00: mouth in [place] [facility] the Medical morning. Branch spironolact 2021-0 Yes [id number] 50mg Take 1 [facility] one 50 mg 7-12 tablet by ity o f tablet 00:00: mouth in [place] the Medical morning. Branch albuterol 2021-0 Yes [id number] 2{puff} Inhale 2 [facility] (PROVENTIL 7-12 Puffs ity of HFA) 90 00:00: every 6 [place] mcg/actuati 00 (six) Medical on inhaler hours as Branc h needed for Wheezing or Shortness of Breath. meclizine 2021-0 Yes [id number] 25mg Take 1 [facility] 25 mg 7-12 tablet by ity of tablet 00:00: mouth 3 00 (three) Medical times Branch daily as needed for Dizziness. fluticasone 2021-0 Yes [id number] 1{spray Use 1 [facility] propionate 7-12 } [place] ity o f 50 00:00: each [place] mcg/actuati 00 nostril in Me dical on nasal the Branch spray morning. cetirizine 0 Yes [id number] 10mg Take 1 [facility] (ZYRTEC) 10 7-12 tablet by ity of mg tablet 00:00: mouth in [facility] the Medical morning. Branch spironolact 0 Yes [id number] 50mg Take 1 [facility] one 50 mg 7-12 tablet by ity o f tablet 00:00: mouth in [place] the Medical morning. Branch albuterol Yes [id number] 2{puff} Inhale 2 [facility] (PROVENTIL 7-12 Puffs ity of HFA) 90 00:00: every 6 [place] mcg/actuati 00 (six) Medical on inhaler hours as Branc h needed for Wheezing or Shortness of Breath. meclizine 0 Yes [id number] 25mg Take 1 [facility] 25 mg 7-12 tablet by ity of tablet 00:00: mouth 3 [place] 00 (three) Medical times Branch daily as needed for Dizziness. fluticasone 2021-0 Yes [id number] 1{spray Use 1 [facility] propionate 7-12 } [place] ity o f 50 00:00: each [place] mcg/actuati 00 nostril in Me dical on nasal the Branch spray morning. cetirizine 2021-0 Yes [id number] 10mg Take 1 [facility] (ZYRTEC) 10 7-12 tablet by ity of mg tablet 00:00: mouth in [facility] 00 the Medical morning. Branch spironolact 2021-0 Yes [id number] 50mg Take 1 [facility] one 50 mg 7-12 tablet by ity o f tablet 00:00: mouth in [place] the Medical morning. Branch albuterol 2021-0 Yes [id number] 2{puff} Inhale 2 [facility] (PROVENTIL 7-12 Puffs ity of HFA) 90 00:00: every 6 [place] mcg/actuati 00 (six) Medical on inhaler hours as Branc h needed for Wheezing or Shortness of Breath. meclizine 2021-0 Yes [id number] 25mg Take 1 [facility] n[facility] 25 mg 7-12 tablet by ity of tablet 00:00: mouth 3 [place] 00 (three) Medical times Branch daily as needed for Dizziness. fluticasone 2021-0 Yes [id number] 1{spray Use 1 [facility] propionate 7-12 } [place] ity o f 50 00:00: each [place] mcg/actuati 00 nostril in Me dical on nasal the Branch spray morning. cetirizine 2021-0 Yes [id number] 10mg Take 1 [facility] (ZYRTEC) 10 7-12 tablet by ity of mg tablet 00:00: mouth in [place] [facility] the Medical morning. Branch spironolact 2021-0 Yes [id number] 50mg Take 1 [facility] one 50 mg 7-12 tablet by ity o f tablet 00:00: mouth in [place] the Medical morning. Branch albuterol Yes [id number] 2{puff} Inhale 2 [facility] (PROVENTIL 7-12 Puffs ity of HFA) 90 00:00: every 6 [place] mcg/actuati 00 (six) Medical on inhaler hours as Branc h needed for Wheezing or Shortness of Breath. meclizine 2021-0 Yes [id number] 25mg Take 1 [facility] nivers 25 mg 7-12 tablet by ity of tablet 00:00: mouth 3 [place] 00 (three) Medical times Branch daily as needed for Dizziness. fluticasone 2021-0 Yes [id number] 1{spray Use 1 [facility] propionate 7-12 } [place] ity o f 50 00:00: each [place] mcg/actuati 00 nostril in Me dical on nasal the Branch spray morning. cetirizine 2021-0 Yes [id number] 10mg Take 1 [facility] (ZYRTEC) 10 7-12 tablet by ity of mg tablet 00:00: mouth in [place] [facility] the Medical morning. Branch spironolact 2021-0 Yes [id number] 50mg Take 1 [facility] one 50 mg 7-12 tablet by ity o f tablet 00:00: mouth in [place] 00 the Medical morning. Branch albuterol 2021-0 Yes [id number] 2{puff} Inhale 2 [facility] (PROVENTIL 7-12 Puffs ity of HFA) 90 00:00: every 6 [place] mcg/actuati 00 (six) Medical on inhaler hours as Branc h needed for Wheezing or Shortness of Breath. meclizine 2021-0 Yes [id number] 25mg Take 1 [facility] n[facility] 25 mg 7-12 tablet by ity of tablet 00:00: mouth 3 [place] (three) Medical times Branch daily as needed for Dizziness. fluticasone 2021-0 Yes [id number] 1{spray Use 1 [facility] propionate 7-12 } [place] ity o f 50 00:00: each [place] mcg/actuati 00 nostril in Pa dical on nasal the Branch spray morning. cetirizine 2021- Yes [id number] 10mg Take 1 [facility] (ZYRTEC) 10 7-12 tablet by ity of mg tablet 00:00: mouth in [place] [facility] the Medical morning. Branch spironolact 2021-0 Yes [id number] 50mg Take 1 [facility] one 50 mg 7-12 tablet by ity o f tablet 00:00: mouth in [place] 00 the Medical morning. Branch albuterol 2021-0 Yes [id number] 2{puff} Inhale 2 [facility] (PROVENTIL 7-12 Puffs ity of HFA) 90 00:00: every 6 [place] mcg/actuati 00 (six) Medical on inhaler hours as Branc h needed for Wheezing or Shortness of Breath. meclizine 2021-0 Yes [id number] 25mg Take 1 U nivers 25 mg 7-12 tablet by ity of tablet 00:00: mouth 3 [place] 00 (three) Medical times Branch daily as needed for Dizziness. fluticasone 2021-0 Yes [id number] 1{spray Use 1 [facility] propionate 7-12 } [place] ity o f 50 00:00: each [place] mcg/actuati 00 nostril in Me dical on nasal the Branch spray morning. cetirizine 2021-0 Yes [id number] 10mg Take 1 [facility] (ZYRTEC) 10 7-12 tablet by ity of mg tablet 00:00: mouth in [place] [facility] 00 the Medical morning. Branch spironolact 2021-0 Yes [id number] 50mg Take 1 [facility] one 50 mg 7-12 tablet by ity o f tablet 00:00: mouth in [place] 00 the Medical morning. Branch albuterol 2021-0 Yes [id number] 2{puff} Inhale 2 [facility] (PROVENTIL 7-12 Puffs ity of HFA) 90 00:00: every 6 [place] mcg/actuati 00 (six) Medical on inhaler hours as Branc h needed for Wheezing or Shortness of Breath. meclizine 2021-0 Yes [id number] 25mg Take 1 U nivers 25 mg 7-12 tablet by ity of tablet 00:00: mouth 3 [place] (three) Medical times Branch daily as needed for Dizziness. fluticasone 2021-0 Yes [id number] 1{spray Use 1 [facility] propionate 7-12 } [place] ity o f 50 00:00: each [place] mcg/actuati 00 nostril in Me dical on nasal the Branch spray morning. cetirizine 2021-0 Yes [id number] 10mg Take 1 [facility] (ZYRTEC) 10 7-12 tablet by ity of mg tablet 00:00: mouth in [place] [facility] 00 the Medical morning. Branch spironolact 2021-0 Yes [id number] 50mg Take 1 [facility] one 50 mg 7-12 tablet by ity o f tablet 00:00: mouth in [place] 00 the Medical morning. Branch albuterol 2021-0 Yes [id number] 2{puff} Inhale 2 [facility] (PROVENTIL 7-12 Puffs ity of HFA) 90 00:00: every 6 [place] mcg/actuati 00 (six) Medical on inhaler hours as Branc h needed for Wheezing or Shortness of Breath. meclizine 2021-0 Yes [id number] 25mg Take 1 U nivers 25 mg 7-12 tablet by ity of tablet 00:00: mouth 3 [place] 00 (three) Medical times Branch daily as needed for Dizziness. fluticasone 2022-0 Yes [id number] 1{spray Use 1 [facility] propionate 7-12 } [place] ity o f 50 00:00: each [place] mcg/actuati 00 nostril in Pa dical on nasal the Branch spray morning. cetirizine 0 Yes [id number] 10mg Take 1 [facility] (ZYRTEC) 10 7-12 tablet by ity of mg tablet 00:00: mouth in [place] [facility] the Medical morning. Branch spironolact 2021-0 Yes [id number] 50mg Take 1 [facility] one 50 mg 7-12 tablet by ity o f tablet 00:00: mouth in [place] the Medical morning. Branch meclizine 2021-0 Yes [id number] 25mg Take 1 [facility] nivers 25 mg 7-12 tablet by ity of tablet 00:00: mouth 3 [place] (three) Medical times Branch daily as needed for Dizziness. spironolact 2021-0 Yes [id number] 50mg Take 1 [facility] one 50 mg 7-12 tablet by ity o f tablet 00:00: mouth in [place] the Medical morning. Branch meclizine 2021-0 Yes [id number] 25mg Take 1 U nivers 25 mg 7-12 tablet by ity of tablet 00:00: mouth 3 [place] [address] (three) Medical times Branch daily as needed for Dizziness. spironolact 2021-0 Yes [id number] 50mg Take 1 [facility] one 50 mg 7-12 tablet by ity o f tablet 00:00: mouth in [place] the Medical morning. Branch meclizine 2021-0 Yes [id number] 25mg Take 1 [facility] nivers 25 mg 7-12 tablet by ity of tablet 00:00: mouth 3 [place] (three) Medical times Branch daily as needed for Dizziness. spironolact 2021-0 Yes [id number] 50mg Take 1 [facility] one 50 mg 7-12 tablet by ity o f tablet 00:00: mouth in [place] the Medical morning. Branch meclizine 2021-0 Yes [id number] 25mg Take 1 U nivers 25 mg 7-12 tablet by ity of tablet 00:00: mouth 3 [place] [address] (three) Medical times Branch daily as needed for Dizziness. spironolact 2021-0 Yes [id number] 50mg Take 1 [facility] one 50 mg 7-12 tablet by ity o f tablet 00:00: mouth in [place] 00 the Medical morning. Branch meclizine 2021-0 Yes [id number] 25mg Take 1 U nivers 25 mg 7-12 tablet by ity of tablet 00:00: mouth 3 [place] (three) Medical times Branch daily as needed for Dizziness. spironolact 2021-0 Yes [id number] 50mg Take 1 [facility] one 50 mg 7-12 tablet by ity o f tablet 00:00: mouth in [place] 00 the Medical morning. Branch meclizine 2021-0 Yes [id number] 25mg Take 1 U nivers 25 mg 7-12 tablet by ity of tablet 00:00: mouth 3 [place] (three) Medical times Branch daily as needed for Dizziness. spironolact 2021-0 Yes [id number] 50mg Take 1 [facility] one 50 mg 7-12 tablet by ity o f tablet 00:00: mouth in [place] 00 the Medical morning. Branch meclizine 2021-0 Yes [id number] 25mg Take 1 U nivers 25 mg 7-12 tablet by ity of tablet 00:00: mouth 3 [place] (three) Medical times Branch daily as needed for Dizziness. spironolact 2021-0 Yes [id number] 50mg Take 1 [facility] one 50 mg 7-12 tablet by ity o f tablet 00:00: mouth in [place] 00 the Medical morning. Branch meclizine 2021-0 Yes [id number] 25mg Take 1 U nivers 25 mg 7-12 tablet by ity of tablet 00:00: mouth 3 [place] (three) Medical times Branch daily as needed for Dizziness. spironolact 2021-0 Yes [id number] 50mg Take 1 [facility] one 50 mg 7-12 tablet by ity o f tablet 00:00: mouth in [place] 00 the Medical morning. Branch meclizine 2021-0 Yes [id number] 25mg Take 1 U nivers 25 mg 7-12 tablet by ity of tablet 00:00: mouth 3 [place] (three) Medical times Branch daily as needed for Dizziness. spironolact 2021-0 Yes [id number] 50mg Take 1 [facility] one 50 mg 7-12 tablet by ity o f tablet 00:00: mouth in [place] 00 the Medical morning. Branch meclizine 2022-0 Yes [id number] 25mg Take 1 U nivers 25 mg 7-12 tablet by ity of tablet 00:00: mouth 3 [place] 00 (three) Medical times [place] daily as needed for Dizziness. spironolact 0 Yes [id number] 50mg Take 1 [facility] one 50 mg 7-12 tablet by ity o f tablet 00:00: mouth in [place] 00 the Medical morning. Branch meclizine 2021-0 Yes [id number] 25mg Take 1 U nivers 25 mg 7-12 tablet by ity of tablet 00:00: mouth 3 [place] 00 (three) Medical times [place] daily as needed for Dizziness. spironolact 0 Yes [id number] 50mg Take 1 [facility] one 50 mg 7-12 tablet by ity o f tablet 00:00: mouth in [place] 00 the Medical morning. Branch meclizine Yes [id number] 25mg Take 1 U nivers 25 mg 7-12 tablet by ity of tablet 00:00: mouth 3 [place] 00 (three) Medical times [place] daily as needed for Dizziness. spironolact Yes [id number] 50mg Take 1 [facility] one 50 mg 7-12 tablet by ity o f tablet 00:00: mouth in [place] 00 the Medical morning. [place] albuterol 2021- No [id number] 2{puff} Inhale 2 [facility] (PROVENTIL 12-26 Puffs ity of HFA) 90 00:00: 00:00 every 6 [place] mcg/actuati 00 :00 (six) Medical on inhaler hours as Branc h needed for Wheezing or Shortness of Breath. fluticasone 2021- No [id number] 1{spray Use 1 [facility] propionate 12-26 } [place] ity of 50 00:00: 00:00 each [place] mcg/actuati 00 :00 nostril in Me dical on nasal the Branch spray morning. cetirizine 2021- No [id number] 10mg Take 1 [facility] (ZYRTEC) 10 12-26 tablet by it y of mg tablet 00:00: 00:00 mouth in [place] 00 :00 the Medical morning. [place] albuterol 2021- No [id number] 2{puff} Inhale 2 [facility] (PROVENTIL 12-26 Puffs ity of HFA) 90 00:00: 00:00 every 6 [place] mcg/actuati 00 :00 (six) Medical on inhaler hours as Branc h needed for Wheezing or Shortness of Breath. fluticasone 2- No [id number] 1{spray Use 1 [facility] propionate 12-26 } [place] ity of 50 00:00: 00:00 each [place] mcg/actuati 00 :00 nostril in Pa dical on nasal the Branch spray morning. cetirizine 2- No [id number] 10mg Take 1 [facility] (ZYRTEC) 10 12-26 tablet by it y of mg tablet 00:00: 00:00 mouth in [place] 00 :00 the Medical morning. Branch metformin 0 Yes [id number] TAKE 1 U nivers ER 500 mg 6-24 TABLET BY ity o f 24 hr 00:00: MOUTH WITH [place] tablet 00 FOOD EVERY Medical EVENING. Branch Follow-up for refills and fasting labs. hydrALAZINE 0 Yes [id number] 25mg Take 1 [facility] 25 mg 6-24 tablet by ity of tablet 00:00: mouth 2 [place] 00 (two) Medical times Branch daily. metformin 2021-0 Yes [id number] TAKE 1 U nivers ER 500 mg 6-24 TABLET BY ity o f 24 hr 00:00: MOUTH WITH [place] tablet 00 FOOD EVERY Medical EVENING. Branch Follow-up for refills and fasting labs. hydrALAZINE 2021-0 Yes [id number] 25mg Take 1 [facility] 25 mg 6-24 tablet by ity of tablet 00:00: mouth 2 [place] 00 (two) Medical times Branch daily. metformin 2021-0 Yes [id number] TAKE 1 U nivers ER 500 mg 6-24 TABLET BY ity o f 24 hr 00:00: MOUTH WITH [place] tablet 00 FOOD EVERY Medical EVENING. Branch Follow-up for refills and fasting labs. hydrALAZINE 2021-0 Yes [id number] 25mg Take 1 [facility] 25 mg 6-24 tablet by it[facility] of tablet 00:00: mouth 2 [place] 00 (two) Medical times Branch daily. metformin 2021-0 Yes [id number] TAKE 1 [facility] n[facility] ER 500 mg 6-24 TABLET BY ity o f 24 hr 00:00: MOUTH WITH [place] tablet 00 FOOD EVERY Medical EVENING. Branch Follow-up for refills and fasting labs. hydrALAZINE 2-0 Yes [id number] 25mg Take 1 [facility] 25 mg 6-24 tablet by ity of tablet 00:00: mouth 2 (two) Medical times Branch daily. metformin 2-0 Yes [id number] TAKE 1 [facility] ER 500 mg 6-24 TABLET BY ity o f 24 hr 00:00: MOUTH WITH [place] tablet 00 FOOD EVERY Medical EVENING. Branch Follow-up for refills and fasting labs. hydrALAZINE 2021-0 Yes [id number] 25mg Take 1 [facility] 25 mg 6-24 tablet by it[facility] of tablet 00:00: mouth 2 (two) Medical times Branch daily. metformin 2021-0 Yes [id number] TAKE 1 [facility] ER 500 mg 6-24 TABLET BY ity o f 24 hr 00:00: MOUTH WITH [place] tablet 00 FOOD EVERY Medical EVENING. Branch Follow-up for refills and fasting labs. hydrALAZINE 2021-0 Yes [id number] 25mg Take 1 [facility] 25 mg 6-24 tablet by ity of tablet 00:00: mouth 2 (two) Medical times Branch daily. metformin 2021-0 Yes [id number] TAKE 1 [facility] ER 500 mg 6-24 TABLET BY ity o f 24 hr 00:00: MOUTH WITH [place] tablet 00 FOOD EVERY Medical EVENING. Branch Follow-up for refills and fasting labs. hydrALAZINE 2021-0 Yes [id number] 25mg Take 1 [facility] 25 mg 6-24 tablet by ity of tablet 00:00: mouth 2 (two) Medical times Branch daily. metformin 2-0 Yes [id number] TAKE 1 [facility] ER 500 mg 6-24 TABLET BY ity o f 24 hr 00:00: MOUTH WITH [place] tablet 00 FOOD EVERY Medical EVENING. Branch Follow-up for refills and fasting labs. hydrALAZINE 2022-0 Yes [id number] 25mg Take 1 [facility] 25 mg 6-24 tablet by ity of tablet 00:00: mouth 2 [place] 00 (two) Medical times Branch daily. metformin 2022-0 Yes [id number] TAKE 1 [facility] ER 500 mg 6-24 TABLET BY ity o f 24 hr 00:00: MOUTH WITH [place] tablet 00 FOOD EVERY Medical EVENING. Branch Follow-up for refills and fasting labs. hydrALAZINE 2021-0 Yes [id number] 25mg Take 1 [facility] 25 mg 6-24 tablet by it[facility] of tablet 00:00: mouth 2 [place] 00 (two) Medical times Branch daily. metformin 2021-0 Yes [id number] TAKE 1 [facility] ER 500 mg 6-24 TABLET BY ity o f 24 hr 00:00: MOUTH WITH [place] tablet 00 FOOD EVERY Medical EVENING. Branch Follow-up for refills and fasting labs. metformin 2021-0 Yes [id number] TAKE 1 [facility] ER 500 mg 6-24 TABLET BY ity o f 24 hr 00:00: MOUTH WITH [place] tablet 00 FOOD EVERY Medical EVENING. Branch Follow-up for refills and fasting labs. metformin 2021-0 Yes [id number] TAKE 1 [facility] ER 500 mg 6-24 TABLET BY ity o f 24 hr 00:00: MOUTH WITH [place] tablet 00 FOOD EVERY Medical EVENING. Branch Follow-up for refills and fasting labs. metformin 2021-0 Yes [id number] TAKE 1 [facility] ER 500 mg 6-24 TABLET BY ity o f 24 hr 00:00: MOUTH WITH [place] tablet 00 FOOD EVERY Medical EVENING. Branch Follow-up for refills and fasting labs. metformin 2021-0 Yes [id number] TAKE 1 [facility] ER 500 mg 6-24 TABLET BY ity o f 24 hr 00:00: MOUTH WITH [place] tablet 00 FOOD EVERY Medical EVENING. Branch Follow-up for refills and fasting labs. metformin 2021-0 Yes [id number] TAKE 1 [facility] ER 500 mg 6-24 TABLET BY ity o f 24 hr 00:00: MOUTH WITH [place] tablet 00 FOOD EVERY Medical EVENING. Branch Follow-up for refills and fasting labs. metformin 2021-0 Yes [id number] TAKE 1 [facility] ER 500 mg 6-24 TABLET BY ity o f 24 hr 00:00: MOUTH WITH [place] tablet 00 FOOD EVERY Medical EVENING. Branch Follow-up for refills and fasting labs. metformin 2021-0 Yes [id number] TAKE 1 [facility] ER 500 mg 6-24 TABLET BY ity o f 24 hr 00:00: MOUTH WITH [place] tablet 00 FOOD EVERY Medical EVENING. Branch Follow-up for refills and fasting labs. metformin 2021-0 Yes [id number] TAKE 1 [facility] ER 500 mg 6-24 TABLET BY ity o f 24 hr 00:00: MOUTH WITH [place] tablet 00 FOOD EVERY Medical EVENING. Branch Follow-up for refills and fasting labs. metformin 2021-0 Yes [id number] TAKE 1 [facility] ER 500 mg 6-24 TABLET BY ity o f 24 hr 00:00: MOUTH WITH [place] tablet 00 FOOD EVERY Medical EVENING. Branch Follow-up for refills and fasting labs. metformin 2021-0 Yes [id number] TAKE 1 [facility] ER 500 mg 6-24 TABLET BY ity o f 24 hr 00:00: MOUTH WITH [place] tablet 00 FOOD EVERY Medical EVENING. Branch Follow-up for refills and fasting labs. metformin 2021-0 Yes [id number] TAKE 1 [facility] ER 500 mg 6-24 TABLET BY ity o f 24 hr 00:00: MOUTH WITH [place] tablet 00 FOOD EVERY Medical EVENING. Branch Follow-up for refills and fasting labs. metformin 2021-0 Yes [id number] TAKE 1 [facility] ER 500 mg 6-24 TABLET BY ity o f 24 hr 00:00: MOUTH WITH [place] tablet 00 FOOD EVERY Medical EVENING. Branch Follow-up for refills and fasting labs. metformin 2021-0 Yes [id number] TAKE 1 [facility] ER 500 mg 6-24 TABLET BY ity o f 24 hr 00:00: MOUTH WITH [place] tablet 00 FOOD EVERY Medical EVENING. Branch Follow-up for refills and fasting labs. hydrALAZINE 2021- No [id number] 25mg Take 1 [facility] 25 mg 6-24 10-12 tablet by ity of tablet 00:00: 00:00 mouth 2 [place] 00 :00 (two) Medical times Branch daily. carvediloL 2021-0 Yes [id number] 25mg Take 1 [facility] (COREG) 25 6-10 tablet by ity of mg tablet 00:00: mouth 2 (two) Medical times Branch daily with meals. carvediloL 2021-0 Yes [id number] 25mg Take 1 [facility] (COREG) 25 6-10 tablet by ity of mg tablet 00:00: mouth 2 00 (two) Medical times Branch daily with meals. carvediloL 2021-0 Yes [id number] 25mg Take 1 [facility] (COREG) 25 6-10 tablet by ity of mg tablet 00:00: mouth (two) Medical times Branch daily with meals. carvediloL 2-0 Yes [id number] 25mg Take 1 [facility] (COREG) 25 6-10 tablet by ity of mg tablet 00:00: mouth (two) Medical times Branch daily with meals. carvediloL 2-0 Yes [id number] 25mg Take 1 [facility] (COREG) 25 6-10 tablet by ity of mg tablet 00:00: mouth (two) Medical times Branch daily with meals. carvediloL 2-0 Yes [id number] 25mg Take 1 [facility] (COREG) 25 6-10 tablet by ity of mg tablet 00:00: mouth (two) Medical times Branch daily with meals. carvediloL 2-0 Yes [id number] 25mg Take 1 [facility] (COREG) 25 6-10 tablet by ity of mg tablet 00:00: mouth (two) Medical times Branch daily with meals. carvediloL 2021-0 Yes [id number] 25mg Take 1 [facility] (COREG) 25 6-10 tablet by ity of mg tablet 00:00: mouth (two) Medical times Branch daily with meals. carvediloL 2021-0 Yes [id number] 25mg Take 1 [facility] (COREG) 25 6-10 tablet by ity of mg tablet 00:00: mouth (two) Medical times Branch daily with meals. carvediloL 2-0 Yes [id number] 25mg Take 1 [facility] (COREG) 25 6-10 tablet by ity of mg tablet 00:00: mouth (two) Medical times Branch daily with meals. carvediloL 2-0 Yes [id number] 25mg Take 1 [facility] (COREG) 25 6-10 tablet by ity of mg tablet 00:00: mouth (two) Medical times Branch daily with meals. carvediloL 2022-0 Yes [id number] 25mg Take 1 [facility] (COREG) 25 6-10 tablet by ity of mg tablet 00:00: mouth (two) Medical times Branch daily with meals. carvediloL 2022-0 Yes [id number] 25mg Take 1 [facility] (COREG) 25 6-10 tablet by ity of mg tablet 00:00: mouth (two) Medical times Branch daily with meals. carvediloL 2-0 Yes [id number] 25mg Take 1 [facility] (COREG) 25 6-10 tablet by ity of mg tablet 00:00: mouth (two) Medical times Branch daily with meals. carvediloL 2-0 Yes [id number] 25mg Take 1 [facility] (COREG) 25 6-10 tablet by ity of mg tablet 00:00: mouth (two) Medical times Branch daily with meals. carvediloL 2-0 Yes [id number] 25mg Take 1 [facility] (COREG) 25 6-10 tablet by ity of mg tablet 00:00: mouth (two) Medical times Branch daily with meals. carvediloL 2-0 Yes [id number] 25mg Take 1 [facility] (COREG) 25 6-10 tablet by ity of mg tablet 00:00: mouth (two) Medical times Branch daily with meals. carvediloL 2021-0 Yes [id number] 25mg Take 1 [facility] (COREG) 25 6-10 tablet by ity of mg tablet 00:00: mouth (two) Medical times Branch daily with meals. carvediloL 2021-0 Yes [id number] 25mg Take 1 [facility] (COREG) 25 6-10 tablet by ity of mg tablet 00:00: mouth (two) Medical times Branch daily with meals. carvediloL 2-0 Yes [id number] 25mg Take 1 [facility] (COREG) 25 6-10 tablet by ity of mg tablet 00:00: mouth (two) Medical times Branch daily with meals. carvediloL 2-0 Yes [id number] 25mg Take 1 [facility] (COREG) 25 6-10 tablet by ity of mg tablet 00:00: mouth (two) Medical times Branch daily with meals. carvediloL 2022-0 Yes [id number] 25mg Take 1 [facility] (COREG) 25 6-10 tablet by ity of mg tablet 00:00: mouth (two) Medical times Branch daily with meals. carvediloL 2022-0 Yes [id number] 25mg Take 1 [facility] (COREG) 25 6-10 tablet by ity of mg tablet 00:00: mouth 2 [place] 00 (two) Medical times Branch daily with meals. aspirin 81 0 Yes 81mg Take 81 mg U nivers mg chewable 3-30 by mouth ity of tablet 11:05: daily. [place] 18 Medical Branch aspirin 81 2021-0 Yes 81mg Take 81 mg U nivers mg chewable 3-30 by mouth ity of tablet 11:05: daily. [place] [address] Medical Branch aspirin 81 2021-0 Yes 81mg Take 81 mg U nivers mg chewable 3-30 by mouth ity of tablet 11:05: daily. [place] [address] Medical Branch aspirin 81 2021-0 Yes 81mg Take 81 mg [facility] mg chewable 3-30 by mouth ity of tablet 11:05: daily. [place] [address] Medical Branch aspirin 81 2021-0 Yes 81mg Take 81 mg [facility] mg chewable 3-30 by mouth ity of tablet 11:05: daily. [place] [address] Medical Branch omeprazole 2021-0 Yes [id number] 40mg Take 1 [facility] 40 mg 3-25 capsule by ity of capsule 00:00: mouth [place] 00 daily. Medical Branch omeprazole 2021-0 Yes [id number] 40mg Take 1 [facility] 40 mg 3-25 capsule by ity of capsule 00:00: mouth [place] 00 daily. Medical Branch omeprazole 2021-0 Yes [id number] 40mg Take 1 [facility] 40 mg 3-25 capsule by ity of capsule 00:00: mouth [place] 00 daily. Medical Branch omeprazole 2021-0 Yes [id number] 40mg Take 1 [facility] 40 mg 3-25 capsule by ity of capsule 00:00: mouth [place] 00 daily. Medical Branch omeprazole 2021-0 Yes [id number] 40mg Take 1 [facility] 40 mg 3-25 capsule by ity of capsule 00:00: mouth [place] 00 daily. Medical Branch omeprazole 2021-0 Yes [id number] 40mg Take 1 [facility] 40 mg 3-25 capsule by ity of capsule 00:00: mouth [place] 00 daily. Medical Branch omeprazole 2021-0 Yes [id number] 40mg Take 1 [facility] 40 mg 3-25 capsule by ity of capsule 00:00: mouth [place] 00 daily. Medical Branch omeprazole 2021-0 Yes [id number] 40mg Take 1 [facility] 40 mg 3-25 capsule by ity of capsule 00:00: mouth [place] 00 daily. Medical Branch omeprazole 2021-0 Yes [id number] 40mg Take 1 [facility] 40 mg 3-25 capsule by ity of capsule 00:00: mouth [place] 00 daily. Medical Branch omeprazole 2021-0 Yes [id number] 40mg Take 1 [facility] 40 mg 3-25 capsule by ity of capsule 00:00: mouth [place] 00 daily. Medical Branch omeprazole 2021-0 Yes [id number] 40mg Take 1 [facility] 40 mg 3-25 capsule by ity of capsule 00:00: mouth [place] 00 daily. Medical Branch omeprazole 2021-0 Yes [id number] 40mg Take 1 [facility] 40 mg 3-25 capsule by ity of capsule 00:00: mouth [place] 00 daily. Medical Branch omeprazole 2021-0 Yes [id number] 40mg Take 1 [facility] 40 mg 3-25 capsule by ity of capsule 00:00: mouth [place] 00 daily. Medical Branch omeprazole 2021-0 Yes [id number] 40mg Take 1 [facility] 40 mg 3-25 capsule by ity of capsule 00:00: mouth [place] 00 daily. Medical Branch omeprazole 2021-0 Yes [id number] 40mg Take 1 [facility] 40 mg 3-25 capsule by ity of capsule 00:00: mouth [place] 00 daily. Medical Branch omeprazole 2021-0 Yes [id number] 40mg Take 1 [facility] 40 mg 3-25 capsule by ity of capsule 00:00: mouth [place] 00 daily. Medical Branch omeprazole 2021-0 Yes [id number] 40mg Take 1 [facility] 40 mg 3-25 capsule by ity of capsule 00:00: mouth [place] 00 daily. Medical Branch omeprazole 2021-0 Yes [id number] 40mg Take 1 [facility] 40 mg 3-25 capsule by ity of capsule 00:00: mouth [place] 00 daily. Medical Branch omeprazole 2021-0 Yes [id number] 40mg Take 1 [facility] 40 mg 3-25 capsule by ity of capsule 00:00: mouth [place] 00 daily. Medical Branch omeprazole 2021-0 Yes [id number] 40mg Take 1 [facility] 40 mg 3-25 capsule by ity of capsule 00:00: mouth [place] 00 daily. Medical Branch omeprazole 2021-0 Yes [id number] 40mg Take 1 [facility] 40 mg 3-25 capsule by ity of capsule 00:00: mouth [place] 00 daily. Medical Branch omeprazole Yes [id number] 40mg Take 1 [facility] 40 mg 3-25 capsule by ity of capsule 00:00: mouth [place] 00 daily. Medical Branch omeprazole 0 Yes [id number] 40mg Take 1 [facility] 40 mg 3-25 capsule by ity of capsule 00:00: mouth [place] 00 daily. Medical Branch losartan 50 Yes 50mg Take 1 [facility] ers mg tablet 3-23 tablet by ity o f 00:00: mouth 2 [place] 00 (two) Medical times Branch daily. losartan 50 0 Yes 50mg Take 1 [facility] ers mg tablet 3-23 tablet by ity o f 00:00: mouth 2 (two) Medical times Branch daily. losartan 50 0 Yes 50mg Take 1 [facility] ers mg tablet 3-23 tablet by ity o f 00:00: mouth 2 [place] (two) Medical times Branch daily. losartan 50 2021- No 50mg Take 1 [facility] vers mg tablet 3-23 -21 tablet by ity of 00:00: 00:00 mouth 2 [place] 00 :00 (two) Medical times Branch daily. [place]-3 Yes 1{capsu Take 1 Cap U nivers Fatty Acids 1-06 le} by mouth ity of (FISH OIL) 11:57: daily. [place] 300 mg Cap 10 Medical Branch MULTIVITAMI Yes 1{tbl} Take 1 Tab [facility] N (MULTIPLE 1-06 by mouth ity of VITAMINS 11:57: daily. [place] ORAL) 10 Medical Branch venlafaxine Yes 75mg Take 75 mg [facility] XR (EFFEXOR 1-06 by mouth ity of XR) 75 mg 11:57: daily with [place] 24 hr 10 breakfast. Medical capsule 150mg in Branch AM and 75mg qhs HYDROcodone Yes 1{tbl} Take 1 Tab [facility] -acetaminop 1-06 by mouth ity of hen (NORCO) 11:57: every 8 [place] 10-325 mg 10 (eight) Medical tablet hours as Branch needed for Pain (scale 4-6) or Pain (scale 7-10). ferrous Yes 325mg Take 325 Unive rs sulfate 325 1-06 mg by ity of mg (65 mg 11:57: mouth [place] iron) EC 10 daily. Medical tablet Branch dextran Yes Place in [facility] 70/hypromel 1-06 each eye ity of lose 11:57: as needed. [place] (ARTIFICIAL 10 Medical TEARS Branch OPHTHALMIC) [place]-3 Yes 1{capsu Take 1 Cap U nivers Fatty Acids 1-06 le} by mouth ity of (FISH OIL) 11:57: daily. [place] 300 mg Cap 10 Medical Branch MULTIVITAMI Yes 1{tbl} Take 1 Tab [facility] N (MULTIPLE 1-06 by mouth ity of VITAMINS 11:57: daily. [place] ORAL) 10 Medical Branch venlafaxine Yes 75mg Take 75 mg [facility] XR (EFFEXOR 1-06 by mouth ity of XR) 75 mg 11:57: daily with [place] 24 hr 10 breakfast. Medical capsule 150mg in Branch AM and 75mg qhs HYDROcodone Yes 1{tbl} Take 1 Tab [facility] -acetaminop 1-06 by mouth ity of hen (NORCO) 11:57: every 8 [place] 10-325 mg 10 (eight) Medical tablet hours as Branch needed for Pain (scale 4-6) or Pain (scale 7-10). ferrous Yes 325mg Take 325 Unive rs sulfate 325 1-06 mg by ity of mg (65 mg 11:57: mouth [place] iron) EC 10 daily. Medical tablet Branch dextran Yes Place in [facility] 70/hypromel 1-06 each eye ity of lose 11:57: as needed. [place] (ARTIFICIAL 10 Medical TEARS Branch OPHTHALMIC) [place]-3 Yes 1{capsu Take 1 Cap U nivers Fatty Acids 1-06 le} by mouth ity of (FISH OIL) 11:57: daily. [place] 300 mg Cap 10 Medical Branch MULTIVITAMI Yes 1{tbl} Take 1 Tab [facility] N (MULTIPLE 1-06 by mouth ity of VITAMINS 11:57: daily. [place] ORAL) 10 Medical Branch venlafaxine Yes 75mg Take 75 mg [facility] XR (EFFEXOR 1-06 by mouth ity of XR) 75 mg 11:57: daily with [place] 24 hr 10 breakfast. Medical capsule 150mg in Branch AM and 75mg qhs HYDROcodone Yes 1{tbl} Take 1 Tab [facility] -acetaminop 1-06 by mouth ity of hen (NORCO) 11:57: every 8 [place] 10-325 mg 10 (eight) Medical tablet hours as Branch needed for Pain (scale 4-6) or Pain (scale 7-10). ferrous Yes 325mg Take 325 Unive rs sulfate 325 1-06 mg by ity of mg (65 mg 11:57: mouth [place] iron) EC 10 daily. Medical tablet Branch dextran Yes Place in [facility] 70/hypromel 1-06 each eye ity of lose 11:57: as needed. [place] (ARTIFICIAL 10 Medical TEARS Branch OPHTHALMIC) [place]-3 Yes 1{capsu Take 1 Cap U nivers Fatty Acids 1-06 le} by mouth ity of (FISH OIL) 11:57: daily. [place] 300 mg Cap 10 Medical Branch MULTIVITAMI Yes 1{tbl} Take 1 Tab [facility] N (MULTIPLE 1-06 by mouth ity of VITAMINS 11:57: daily. [place] ORAL) 10 Medical Branch venlafaxine Yes 75mg Take 75 mg [facility] XR (EFFEXOR 1-06 by mouth ity of XR) 75 mg 11:57: daily with [place] 24 hr 10 breakfast. Medical capsule 150mg in Branch AM and 75mg qhs HYDROcodone Yes 1{tbl} Take 1 Tab [facility] -acetaminop 1-06 by mouth ity of hen (NORCO) 11:57: every 8 [place] 10-325 mg 10 (eight) Medical tablet hours as Branch needed for Pain (scale 4-6) or Pain (scale 7-10). ferrous Yes 325mg Take 325 Unive rs sulfate 325 1-06 mg by ity of mg (65 mg 11:57: mouth [place] iron) EC 10 daily. Medical tablet Branch dextran Yes Place in [facility] 70/hypromel 1-06 each eye ity of lose 11:57: as needed. [place] (ARTIFICIAL 10 Medical TEARS Branch OPHTHALMIC) [place]-3 Yes 1{capsu Take 1 Cap U nivers Fatty Acids 1-06 le} by mouth ity of (FISH OIL) 11:57: daily. [place] 300 mg Cap 10 [facility] MULTIVITAMI Yes 1{tbl} Take 1 Tab [facility] N (MULTIPLE 1-06 by mouth ity of VITAMINS 11:57: daily. [place] ORAL) 10 [facility] Branch venlafaxine Yes 75mg Take 75 mg [facility] XR (EFFEXOR 1-06 by mouth ity of XR) 75 mg 11:57: daily with [place] 24 hr 10 breakfast. Medical capsule 150mg in Branch AM and 75mg qhs HYDROcodone Yes 1{tbl} Take 1 Tab [facility] -acetaminop 1-06 by mouth ity of hen (NORCO) 11:57: every 8 [place] 10-325 mg 10 (eight) Medical tablet hours as Branch needed for Pain (scale 4-6) or Pain (scale 7-10). ferrous Yes 325mg Take 325 Unive rs sulfate 325 1-06 mg by ity of mg (65 mg 11:57: mouth [place] iron) EC 10 daily. Medical tablet Branch dextran Yes Place in Un[facility] s 70/hypromel 1-06 each eye ity of lose 11:57: as needed. [place] (ARTIFICIAL 10 Medical TEARS Branch OPHTHALMIC) [place]-3 Yes 1{capsu Take 1 Cap U nivers Fatty Acids 1-06 le} by mouth ity of (FISH OIL) 11:57: daily. [place] 300 mg Cap 10 [facility] MULTIVITAMI Yes 1{tbl} Take 1 Tab [facility] N (MULTIPLE 1-06 by mouth ity of VITAMINS 11:57: daily. [place] ORAL) 10 [facility] Branch venlafaxine Yes 75mg Take 75 mg [facility] XR (EFFEXOR 1-06 by mouth ity of XR) 75 mg 11:57: daily with [place] 24 hr 10 breakfast. Medical capsule 150mg in Branch AM and 75mg qhs HYDROcodone Yes 1{tbl} Take 1 Tab [facility] -acetaminop 1-06 by mouth ity of hen (NORCO) 11:57: every 8 [place] 10-325 mg 10 (eight) Medical tablet hours as Branch needed for Pain (scale 4-6) or Pain (scale 7-10). ferrous Yes 325mg Take 325 Unive rs sulfate 325 1-06 mg by ity of mg (65 mg 11:57: mouth [place] iron) EC 10 daily. Medical tablet Branch dextran Yes Place in Univer s 70/hypromel 1-06 each eye ity of lose 11:57: as needed. [place] (ARTIFICIAL 10 Medical TEARS Branch OPHTHALMIC) [place]-3 Yes 1{capsu Take 1 Cap U nivers Fatty Acids 1-06 le} by mouth ity of (FISH OIL) 11:57: daily. [place] 300 mg Cap 10 Medical Branch MULTIVITAMI Yes 1{tbl} Take 1 Tab [facility] N (MULTIPLE 1-06 by mouth ity of VITAMINS 11:57: daily. [place] ORAL) 10 Medical Branch venlafaxine Yes 75mg Take 75 mg [facility] XR (EFFEXOR 1-06 by mouth ity of XR) 75 mg 11:57: daily with [place] 24 hr 10 breakfast. Medical capsule 150mg in Branch AM and 75mg qhs HYDROcodone Yes 1{tbl} Take 1 Tab [facility] -acetaminop 1-06 by mouth ity of hen (NORCO) 11:57: every 8 [place] 10-325 mg 10 (eight) Medical tablet hours as Branch needed for Pain (scale 4-6) or Pain (scale 7-10). ferrous Yes 325mg Take 325 Unive rs sulfate 325 1-06 mg by ity of mg (65 mg 11:57: mouth [place] iron) EC 10 daily. Medical tablet Branch dextran Yes Place in Univer s 70/hypromel 1-06 each eye ity of lose 11:57: as needed. [place] (ARTIFICIAL 10 Medical TEARS Branch OPHTHALMIC) [place]-3 Yes 1{capsu Take 1 Cap U nivers Fatty Acids 1-06 le} by mouth ity of (FISH OIL) 11:57: daily. [place] 300 mg Cap 10 Medical Branch MULTIVITAMI Yes 1{tbl} Take 1 Tab [facility] N (MULTIPLE 1-06 by mouth ity of VITAMINS 11:57: daily. [place] ORAL) 10 [facility] Branch venlafaxine Yes 75mg Take 75 mg [facility] XR (EFFEXOR 1-06 by mouth ity of XR) 75 mg 11:57: daily with [place] 24 hr 10 breakfast. Medical capsule 150mg in Branch AM and 75mg qhs HYDROcodone Yes 1{tbl} Take 1 Tab [facility] -acetaminop 1-06 by mouth ity of hen (NORCO) 11:57: every 8 [place] 10-325 mg 10 (eight) Medical tablet hours as Branch needed for Pain (scale 4-6) or Pain (scale 7-10). ferrous Yes 325mg Take 325 Unive rs sulfate 325 1-06 mg by ity of mg (65 mg 11:57: mouth [place] iron) EC 10 daily. Medical tablet Branch dextran Yes Place in Univer s 70/hypromel 1-06 each eye ity of lose 11:57: as needed. [place] (ARTIFICIAL 10 Medical TEARS Branch OPHTHALMIC) [place]-3 Yes 1{capsu Take 1 Cap U nivers Fatty Acids 1-06 le} by mouth ity of (FISH OIL) 11:57: daily. [place] 300 mg Cap 10 [facility] [place] MULTIVITAMI Yes 1{tbl} Take 1 Tab [facility] N (MULTIPLE 1-06 by mouth ity of VITAMINS 11:57: daily. [place] ORAL) 10 Medical Branch venlafaxine Yes 75mg Take 75 mg [facility] XR (EFFEXOR 1-06 by mouth ity of XR) 75 mg 11:57: daily with [place] 24 hr 10 breakfast. Medical capsule 150mg in Branch AM and 75mg qhs HYDROcodone Yes 1{tbl} Take 1 Tab [facility] -acetaminop 1-06 by mouth ity of hen (NORCO) 11:57: every 8 [place] 10-325 mg 10 (eight) Medical tablet hours as Branch needed for Pain (scale 4-6) or Pain (scale 7-10). ferrous Yes 325mg Take 325 Unive rs sulfate 325 1-06 mg by ity of mg (65 mg 11:57: mouth [place] iron) EC 10 daily. Medical tablet Branch dextran Yes Place in Univer s 70/hypromel 1-06 each eye ity of lose 11:57: as needed. [place] (ARTIFICIAL 10 Medical TEARS Branch OPHTHALMIC) [place]-3 Yes 1{capsu Take 1 Cap U nivers Fatty Acids 1-06 le} by mouth ity of (FISH OIL) 11:57: daily. [place] 300 mg Cap 10 [facility] Branch MULTIVITAMI Yes 1{tbl} Take 1 Tab [facility] N (MULTIPLE 1-06 by mouth ity of VITAMINS 11:57: daily. [place] ORAL) 10 [facility] Branch venlafaxine Yes 75mg Take 75 mg [facility] XR (EFFEXOR 1-06 by mouth ity of XR) 75 mg 11:57: daily with [place] 24 hr 10 breakfast. Medical capsule 150mg in Branch AM and 75mg qhs HYDROcodone Yes 1{tbl} Take 1 Tab [facility] -acetaminop 1-06 by mouth ity of hen (NORCO) 11:57: every 8 [place] 10-325 mg 10 (eight) Medical tablet hours as Branch needed for Pain (scale 4-6) or Pain (scale 7-10). ferrous Yes 325mg Take 325 Unive rs sulfate 325 1-06 mg by ity of mg (65 mg 11:57: mouth [place] iron) EC 10 daily. Medical tablet Branch dextran Yes Place in Univer s 70/hypromel 1-06 each eye ity of lose 11:57: as needed. [place] (ARTIFICIAL 10 Medical TEARS Branch OPHTHALMIC) [place]-3 Yes 1{capsu Take 1 Cap U nivers Fatty Acids 1-06 le} by mouth ity of (FISH OIL) 11:57: daily. [place] 300 mg Cap 10 [facility] MULTIVITAMI Yes 1{tbl} Take 1 Tab [facility] N (MULTIPLE 1-06 by mouth ity of VITAMINS 11:57: daily. [place] ORAL) 10 [facility] Branch venlafaxine Yes 75mg Take 75 mg [facility] XR (EFFEXOR 1-06 by mouth ity of XR) 75 mg 11:57: daily with [place] 24 hr 10 breakfast. Medical capsule 150mg in Branch AM and 75mg qhs HYDROcodone Yes 1{tbl} Take 1 Tab [facility] -acetaminop 1-06 by mouth ity of hen (NORCO) 11:57: every 8 [place] 10-325 mg 10 (eight) Medical tablet hours as Branch needed for Pain (scale 4-6) or Pain (scale 7-10). ferrous Yes 325mg Take 325 Unive rs sulfate 325 1-06 mg by ity of mg (65 mg 11:57: mouth [place] iron) EC 10 daily. Medical tablet Branch dextran Yes Place in Univer s 70/hypromel 1-06 each eye ity of lose 11:57: as needed. [place] (ARTIFICIAL 10 Medical TEARS Branch OPHTHALMIC) [place]-3 Yes 1{capsu Take 1 Cap U nivers Fatty Acids 1-06 le} by mouth ity of (FISH OIL) 11:57: daily. [place] 300 mg Cap 10 Medical Branch MULTIVITAMI Yes 1{tbl} Take 1 Tab [facility] N (MULTIPLE 1-06 by mouth ity of VITAMINS 11:57: daily. [place] ORAL) 10 Medical Branch venlafaxine Yes 75mg Take 75 mg [facility] XR (EFFEXOR 1-06 by mouth ity of XR) 75 mg 11:57: daily with [place] 24 hr 10 breakfast. Medical capsule 150mg in Branch AM and 75mg qhs HYDROcodone Yes 1{tbl} Take 1 Tab [facility] -acetaminop 1-06 by mouth ity of hen (NORCO) 11:57: every 8 [place] 10-325 mg 10 (eight) Medical tablet hours as Branch needed for Pain (scale 4-6) or Pain (scale 7-10). ferrous Yes 325mg Take 325 Unive rs sulfate 325 1-06 mg by ity of mg (65 mg 11:57: mouth [place] iron) EC 10 daily. Medical tablet [facility]-06 each eye ity of lose 11:57: as needed. [place] (ARTIFICIAL 10 Medical TEARS Branch OPHTHALMIC) [place]-3 Yes 1{capsu Take 1 Cap U nivers Fatty Acids 1-06 le} by mouth ity of (FISH OIL) 11:57: daily. [place] 300 mg Cap 10 [facility] Branch MULTIVITAMI Yes 1{tbl} Take 1 Tab Univers N (MULTIPLE 1-06 by mouth ity of VITAMINS 11:57: daily. [place] ORAL) 10 [facility] Branch venlafaxine Yes 75mg Take 75 mg Univers XR (EFFEXOR 1-06 by mouth ity of XR) 75 mg 11:57: daily with [place] 24 hr 10 breakfast. Medical capsule 150mg in Branch AM and 75mg qhs HYDROcodone Yes 1{tbl} Take 1 Tab Univers -acetaminop 1-06 by mouth ity of hen (NORCO) 11:57: every 8 [place] 10-325 mg 10 (eight) Medical tablet hours as Branch needed for Pain (scale 4-6) or Pain (scale 7-10). ferrous Yes 325mg Take 325 Unive rs sulfate 325 1-06 mg by ity of mg (65 mg 11:57: mouth [place] iron) EC 10 daily. Medical tablet Branch dextran Yes Place in Un[facility] s 70/hypromel 1-06 each eye ity of lose 11:57: as needed. [place] (ARTIFICIAL 10 Medical TEARS Branch OPHTHALMIC) [place]-3 Yes 1{capsu Take 1 Cap U nivers Fatty Acids 1-06 le} by mouth ity of (FISH OIL) 11:57: daily. [place] 300 mg Cap 10 Medical Branch MULTIVITAMI Yes 1{tbl} Take 1 Tab Univers N (MULTIPLE 1-06 by mouth ity of VITAMINS 11:57: daily. [place] ORAL) 10 Medical Branch venlafaxine Yes 75mg Take 75 mg Univers XR (EFFEXOR 1-06 by mouth ity of XR) 75 mg 11:57: daily with [place] 24 hr 10 breakfast. Medical capsule 150mg in Branch AM and 75mg qhs HYDROcodone Yes 1{tbl} Take 1 Tab Univers -acetaminop 1-06 by mouth ity of hen (NORCO) 11:57: every 8 [place] 10-325 mg 10 (eight) Medical tablet hours as Branch needed for Pain (scale 4-6) or Pain (scale 7-10). ferrous Yes 325mg Take 325 Unive rs sulfate 325 1-06 mg by ity of mg (65 mg 11:57: mouth [place] iron) EC 10 daily. Medical tablet Branch dextran Yes Place in [facility] s 70/hypromel 1-06 each eye ity of lose 11:57: as needed. [place] (ARTIFICIAL 10 Medical TEARS Branch OPHTHALMIC) [place]-3 Yes 1{capsu Take 1 Cap U nivers Fatty Acids 1-06 le} by mouth ity of (FISH OIL) 11:57: daily. [place] 300 mg Cap 10 [facility] Branch MULTIVITAMI Yes 1{tbl} Take 1 Tab Univers N (MULTIPLE 1-06 by mouth ity of VITAMINS 11:57: daily. [place] ORAL) 10 [facility] Branch venlafaxine Yes 75mg Take 75 mg Univers XR (EFFEXOR 1-06 by mouth ity of XR) 75 mg 11:57: daily with [place] 24 hr 10 breakfast. Medical capsule 150mg in Branch AM and 75mg qhs HYDROcodone Yes 1{tbl} Take 1 Tab Univers -acetaminop 1-06 by mouth ity of hen (NORCO) 11:57: every 8 [place] 10-325 mg 10 (eight) Medical tablet hours as Branch needed for Pain (scale 4-6) or Pain (scale 7-10). ferrous Yes 325mg Take 325 Unive rs sulfate 325 1-06 mg by ity of mg (65 mg 11:57: mouth [place] iron) EC 10 daily. Medical tablet Branch dextran Yes Place in [facility] s 70/hypromel 1-06 each eye ity of lose 11:57: as needed. [place] (ARTIFICIAL 10 Medical TEARS Branch OPHTHALMIC) [place]-3 Yes 1{capsu Take 1 Cap U nivers Fatty Acids 1-06 le} by mouth ity of (FISH OIL) 11:57: daily. [place] 300 mg Cap 10 [facility] MULTIVITAMI Yes 1{tbl} Take 1 Tab Univers N (MULTIPLE 1-06 by mouth ity of VITAMINS 11:57: daily. [place] ORAL) 10 [facility] Branch venlafaxine Yes 75mg Take 75 mg Univers XR (EFFEXOR 1-06 by mouth ity of XR) 75 mg 11:57: daily with [place] 24 hr 10 breakfast. Medical capsule 150mg in Branch AM and 75mg qhs HYDROcodone Yes 1{tbl} Take 1 Tab Univers -acetaminop 1-06 by mouth ity of hen (NORCO) 11:57: every 8 [place] 10-325 mg 10 (eight) Medical tablet hours as Branch needed for Pain (scale 4-6) or Pain (scale 7-10). ferrous Yes 325mg Take 325 Unive rs sulfate 325 1-06 mg by ity of mg (65 mg 11:57: mouth [place] iron) EC 10 daily. Medical tablet Branch dextran Yes Place in [facility] s 70/hypromel 1-06 each eye ity of lose 11:57: as needed. [place] (ARTIFICIAL 10 Medical TEARS Branch OPHTHALMIC) [place]-3 Yes 1{capsu Take 1 Cap U nivers Fatty Acids 1-06 le} by mouth ity of (FISH OIL) 11:57: daily. [place] 300 mg Cap 10 Medical Branch MULTIVITAMI Yes 1{tbl} Take 1 Tab Univers N (MULTIPLE 1-06 by mouth ity of VITAMINS 11:57: daily. [place] ORAL) 10 [facility] Branch venlafaxine Yes 75mg Take 75 mg Univers XR (EFFEXOR 1-06 by mouth ity of XR) 75 mg 11:57: daily with [place] 24 hr 10 breakfast. Medical capsule 150mg in Branch AM and 75mg qhs HYDROcodone Yes 1{tbl} Take 1 Tab Univers -acetaminop 1-06 by mouth ity of hen (NORCO) 11:57: every 8 [place] 10-325 mg 10 (eight) Medical tablet hours as Branch needed for Pain (scale 4-6) or Pain (scale 7-10). ferrous Yes 325mg Take 325 Unive rs sulfate 325 1-06 mg by ity of mg (65 mg 11:57: mouth [place] iron) EC 10 daily. Medical tablet [facility]-06 each eye ity of lose 11:57: as needed. [place] (ARTIFICIAL 10 Medical TEARS Branch OPHTHALMIC) [place]-3 Yes 1{capsu Take 1 Cap U nivers Fatty Acids 1-06 le} by mouth ity of (FISH OIL) 11:57: daily. [place] 300 mg Cap 10 Medical Branch MULTIVITAMI Yes 1{tbl} Take 1 Tab Univers N (MULTIPLE 1-06 by mouth ity of VITAMINS 11:57: daily. [place] ORAL) 10 [facility] Branch venlafaxine Yes 75mg Take 75 mg Univers XR (EFFEXOR 1-06 by mouth ity of XR) 75 mg 11:57: daily with [place] 24 hr 10 breakfast. Medical capsule 150mg in Branch AM and 75mg qhs HYDROcodone Yes 1{tbl} Take 1 Tab Univers -acetaminop 1-06 by mouth ity of hen (NORCO) 11:57: every 8 [place] 10-325 mg 10 (eight) Medical tablet hours as Branch needed for Pain (scale 4-6) or Pain (scale 7-10). ferrous Yes 325mg Take 325 Unive rs sulfate 325 1-06 mg by ity of mg (65 mg 11:57: mouth [place] iron) EC 10 daily. Medical tablet Branch dextran Yes Place in Univer s 70/hypromel 1-06 each eye ity of lose 11:57: as needed. [place] (ARTIFICIAL 10 Medical TEARS Branch OPHTHALMIC) [place]-3 Yes 1{capsu Take 1 Cap U nivers Fatty Acids 1-06 le} by mouth ity of (FISH OIL) 11:57: daily. [place] 300 mg Cap 10 Medical Branch MULTIVITAMI Yes 1{tbl} Take 1 Tab Univers N (MULTIPLE 1-06 by mouth ity of VITAMINS 11:57: daily. [place] ORAL) 10 Medical Branch venlafaxine Yes 75mg Take 75 mg Univers XR (EFFEXOR 1-06 by mouth ity of XR) 75 mg 11:57: daily with [place] 24 hr 10 breakfast. Medical capsule 150mg in Branch AM and 75mg qhs HYDROcodone Yes 1{tbl} Take 1 Tab Univers -acetaminop 1-06 by mouth ity of hen (NORCO) 11:57: every 8 [place] 10-325 mg 10 (eight) Medical tablet hours as Branch needed for Pain (scale 4-6) or Pain (scale 7-10). ferrous Yes 325mg Take 325 Unive rs sulfate 325 1-06 mg by ity of mg (65 mg 11:57: mouth [place] iron) EC 10 daily. Medical tablet Branch dextran Yes Place in Univer s 70/hypromel 1-06 each eye ity of lose 11:57: as needed. [place] (ARTIFICIAL 10 Medical TEARS Branch OPHTHALMIC) [place]-3 Yes 1{capsu Take 1 Cap U nivers Fatty Acids 1-06 le} by mouth ity of (FISH OIL) 11:57: daily. [place] 300 mg Cap 10 [facility] Branch MULTIVITAMI Yes 1{tbl} Take 1 Tab Univers N (MULTIPLE 1-06 by mouth ity of VITAMINS 11:57: daily. [place] ORAL) 10 [facility] Branch venlafaxine Yes 75mg Take 75 mg Univers XR (EFFEXOR 1-06 by mouth ity of XR) 75 mg 11:57: daily with [place] 24 hr 10 breakfast. Medical capsule 150mg in Branch AM and 75mg qhs HYDROcodone Yes 1{tbl} Take 1 Tab Univers -acetaminop 1-06 by mouth ity of hen (NORCO) 11:57: every 8 [place] 10-325 mg 10 (eight) Medical tablet hours as Branch needed for Pain (scale 4-6) or Pain (scale 7-10). ferrous Yes 325mg Take 325 Unive rs sulfate 325 1-06 mg by ity of mg (65 mg 11:57: mouth [place] iron) EC 10 daily. Medical tablet Branch dextran Yes Place in Univer s 70/hypromel 1-06 each eye ity of lose 11:57: as needed. [place] (ARTIFICIAL 10 Medical TEARS Branch OPHTHALMIC) [place]-3 Yes 1{capsu Take 1 Cap U nivers Fatty Acids 1-06 le} by mouth ity of (FISH OIL) 11:57: daily. [place] 300 mg Cap 10 [facility] MULTIVITAMI Yes 1{tbl} Take 1 Tab Univers N (MULTIPLE 1-06 by mouth ity of VITAMINS 11:57: daily. [place] ORAL) 10 [facility] Branch venlafaxine Yes 75mg Take 75 mg Univers XR (EFFEXOR 1-06 by mouth ity of XR) 75 mg 11:57: daily with [place] 24 hr 10 breakfast. Medical capsule 150mg in Branch AM and 75mg qhs HYDROcodone Yes 1{tbl} Take 1 Tab Univers -acetaminop 1-06 by mouth ity of hen (NORCO) 11:57: every 8 [place] 10-325 mg 10 (eight) Medical tablet hours as Branch needed for Pain (scale 4-6) or Pain (scale 7-10). ferrous Yes 325mg Take 325 Unive rs sulfate 325 1-06 mg by ity of mg (65 mg 11:57: mouth [place] iron) EC 10 daily. Medical tablet Branch dextran Yes Place in Univer s 70/hypromel 1-06 each eye ity of lose 11:57: as needed. [place] (ARTIFICIAL 10 Medical TEARS Branch OPHTHALMIC) [place]-3 Yes 1{capsu Take 1 Cap U nivers Fatty Acids 1-06 le} by mouth ity of (FISH OIL) 11:57: daily. [place] 300 mg Cap 10 Medical Branch MULTIVITAMI Yes 1{tbl} Take 1 Tab Univers N (MULTIPLE 1-06 by mouth ity of VITAMINS 11:57: daily. [place] ORAL) 10 [facility] Branch venlafaxine Yes 75mg Take 75 mg Univers XR (EFFEXOR 1-06 by mouth ity of XR) 75 mg 11:57: daily with [place] 24 hr 10 breakfast. Medical capsule 150mg in Branch AM and 75mg qhs HYDROcodone Yes 1{tbl} Take 1 Tab Univers -acetaminop 1-06 by mouth ity of hen (NORCO) 11:57: every 8 [place] 10-325 mg 10 (eight) Medical tablet hours as Branch needed for Pain (scale 4-6) or Pain (scale 7-10). ferrous Yes 325mg Take 325 Unive rs sulfate 325 1-06 mg by ity of mg (65 mg 11:57: mouth [place] iron) EC 10 daily. Medical tablet Branch dextran Yes Place in Univer s 70/hypromel 1-06 each eye ity of lose 11:57: as needed. [place] (ARTIFICIAL 10 Medical TEARS Branch OPHTHALMIC) [place]-3 Yes 1{capsu Take 1 Cap U nivers Fatty Acids 1-06 le} by mouth ity of (FISH OIL) 11:57: daily. [place] 300 mg Cap 10 [facility] Branch MULTIVITAMI Yes 1{tbl} Take 1 Tab Univers N (MULTIPLE 1-06 by mouth ity of VITAMINS 11:57: daily. [place] ORAL) 10 [facility] Branch venlafaxine Yes 75mg Take 75 mg Univers XR (EFFEXOR 1-06 by mouth ity of XR) 75 mg 11:57: daily with [place] 24 hr 10 breakfast. Medical capsule 150mg in Branch AM and 75mg qhs HYDROcodone Yes 1{tbl} Take 1 Tab Univers -acetaminop 1-06 by mouth ity of hen (NORCO) 11:57: every 8 [place] 10-325 mg 10 (eight) Medical tablet hours as Branch needed for Pain (scale 4-6) or Pain (scale 7-10). ferrous Yes 325mg Take 325 Unive rs sulfate 325 1-06 mg by ity of mg (65 mg 11:57: mouth [place] iron) EC 10 daily. Medical tablet [facility] each eye ity of lose 11:57: as needed. [place] (ARTIFICIAL 10 Medical TEARS Branch OPHTHALMIC) calcium 2020-06 Yes 500mg Take 1 Univers carbonate 0-13 tablet by ity o f 500 mg 00:00: mouth [place] calcium 00 daily. Medical (1,250 mg) Branch tablet anastrozole 2020-06 Yes [id number] 1mg Take 1 Univers 1 mg tablet 0-13 tablet by ity of 00:00: mouth [place] 00 daily Medical Branch calcium 2020-06 Yes 500mg Take 1 Univers carbonate 0-13 tablet by ity o f 500 mg 00:00: mouth [place] calcium 00 daily. Medical (1,250 mg) Branch tablet anastrozole 2020-06 Yes [id number] 1mg Take 1 Univers 1 mg tablet 0-13 tablet by ity of 00:00: mouth [place] 00 daily Medical Branch calcium 2020-06 Yes 500mg Take 1 Univers carbonate 0-13 tablet by ity o f 500 mg 00:00: mouth [place] calcium 00 daily. Medical (1,250 mg) Branch tablet anastrozole 2020-06 Yes [id number] 1mg Take 1 Univers 1 mg tablet 0-13 tablet by ity of 00:00: mouth [place] 00 daily Medical Branch calcium 2020-06 Yes 500mg Take 1 Univers carbonate 0-13 tablet by ity o f 500 mg 00:00: mouth [place] calcium 00 daily. Medical (1,250 mg) Branch tablet anastrozole 2020-06 Yes [id number] 1mg Take 1 Univers 1 mg tablet 0-13 tablet by ity of 00:00: mouth [place] 00 daily Medical Branch calcium 2020-06 Yes 500mg Take 1 Univers carbonate 0-13 tablet by ity o f 500 mg 00:00: mouth [place] calcium 00 daily. Medical (1,250 mg) Branch tablet anastrozole 2020-06 Yes [id number] 1mg Take 1 Univers 1 mg tablet 0-13 tablet by ity of 00:00: mouth [place] 00 daily Medical Branch calcium 2020-06 Yes 500mg Take 1 Univers carbonate 0-13 tablet by ity o f 500 mg 00:00: mouth [place] calcium 00 daily. Medical (1,250 mg) Branch tablet anastrozole 2020-06 Yes [id number] 1mg Take 1 Univers 1 mg tablet 0-13 tablet by ity of 00:00: mouth [place] 00 daily Medical Branch calcium 2020-06 Yes 500mg Take 1 Univers carbonate 0-13 tablet by ity o f 500 mg 00:00: mouth [place] calcium 00 daily. Medical (1,250 mg) Branch tablet anastrozole 2020-06 Yes [id number] 1mg Take 1 Univers 1 mg tablet 0-13 tablet by ity of 00:00: mouth [place] 00 daily Medical Branch calcium 2020-06 Yes 500mg Take 1 Univers carbonate 0-13 tablet by ity o f 500 mg 00:00: mouth [place] calcium 00 daily. Medical (1,250 mg) Branch tablet anastrozole 2020-06 Yes [id number] 1mg Take 1 Univers 1 mg tablet 0-13 tablet by ity of 00:00: mouth [place] 00 daily Medical Branch calcium 2020-06 Yes 500mg Take 1 Univers carbonate 0-13 tablet by ity o f 500 mg 00:00: mouth [place] calcium 00 daily. Medical (1,250 mg) Branch tablet anastrozole 2020-06 Yes [id number] 1mg Take 1 Univers 1 mg tablet 0-13 tablet by ity of 00:00: mouth [place] 00 daily Medical Branch calcium 2020-06 Yes 500mg Take 1 Univers carbonate 0-13 tablet by ity o f 500 mg 00:00: mouth [place] calcium 00 daily. Medical (1,250 mg) Branch tablet anastrozole 2020-06 Yes [id number] 1mg Take 1 Univers 1 mg tablet 0-13 tablet by ity of 00:00: mouth [place] 00 daily Medical Branch calcium 2020-06 Yes 500mg Take 1 Univers carbonate 0-13 tablet by ity o f 500 mg 00:00: mouth [place] calcium 00 daily. Medical (1,250 mg) Branch tablet anastrozole 2020-06 Yes [id number] 1mg Take 1 Univers 1 mg tablet 0-13 tablet by ity of 00:00: mouth [place] 00 daily Medical Branch calcium 2020-06 Yes 500mg Take 1 Univers carbonate 0-13 tablet by ity o f 500 mg 00:00: mouth [place] calcium 00 daily. Medical (1,250 mg) Branch tablet anastrozole 2020-06 Yes [id number] 1mg Take 1 Univers 1 mg tablet 0-13 tablet by ity of 00:00: mouth [place] 00 daily Medical Branch calcium 2020-06 Yes 500mg Take 1 Univers carbonate 0-13 tablet by ity o f 500 mg 00:00: mouth [place] calcium 00 daily. Medical (1,250 mg) Branch tablet anastrozole 2020-06 Yes [id number] 1mg Take 1 Univers 1 mg tablet 0-13 tablet by ity of 00:00: mouth [place] 00 daily Medical Branch calcium 2020-06 Yes 500mg Take 1 Univers carbonate 0-13 tablet by ity o f 500 mg 00:00: mouth [place] calcium 00 daily. Medical (1,250 mg) Branch tablet anastrozole 2020-06 Yes [id number] 1mg Take 1 Univers 1 mg tablet 0-13 tablet by ity of 00:00: mouth [place] 00 daily Medical Branch calcium 2020-06 Yes 500mg Take 1 Univers carbonate 0-13 tablet by ity o f 500 mg 00:00: mouth [place] calcium 00 daily. Medical (1,250 mg) Branch tablet anastrozole 2020-06 Yes [id number] 1mg Take 1 Univers 1 mg tablet 0-13 tablet by ity of 00:00: mouth [place] 00 daily Medical Branch calcium 2020-06 Yes 500mg Take 1 Univers carbonate 0-13 tablet by ity o f 500 mg 00:00: mouth [place] calcium 00 daily. Medical (1,250 mg) Branch tablet anastrozole 2020-06 Yes [id number] 1mg Take 1 Univers 1 mg tablet 0-13 tablet by ity of 00:00: mouth [place] 00 daily Medical Branch calcium 2020-06 Yes 500mg Take 1 Univers carbonate 0-13 tablet by ity o f 500 mg 00:00: mouth [place] calcium 00 daily. Medical (1,250 mg) Branch tablet anastrozole 2020-06 Yes [id number] 1mg Take 1 Univers 1 mg tablet 0-13 tablet by ity of 00:00: mouth [place] 00 daily Medical Branch calcium 2020-06 Yes 500mg Take 1 Univers carbonate 0-13 tablet by ity o f 500 mg 00:00: mouth [place] calcium 00 daily. Medical (1,250 mg) Branch tablet anastrozole 2020-06 Yes [id number] 1mg Take 1 Univers 1 mg tablet 0-13 tablet by ity of 00:00: mouth [place] 00 daily Medical Branch calcium 2020-06 Yes 500mg Take 1 Univers carbonate 0-13 tablet by ity o f 500 mg 00:00: mouth [place] calcium 00 daily. Medical (1,250 mg) Branch tablet anastrozole 2020-06 Yes [id number] 1mg Take 1 Univers 1 mg tablet 0-13 tablet by ity of 00:00: mouth [place] 00 daily Medical Branch calcium 2020-06 Yes 500mg Take 1 Univers carbonate 0-13 tablet by ity o f 500 mg 00:00: mouth [place] calcium 00 daily. Medical (1,250 mg) Branch tablet anastrozole 2020-06 Yes [id number] 1mg Take 1 Univers 1 mg tablet 0-13 tablet by ity of 00:00: mouth [place] 00 daily Medical Branch calcium 2020-06 Yes 500mg Take 1 Univers carbonate 0-13 tablet by ity o f 500 mg 00:00: mouth [place] calcium 00 daily. Medical (1,250 mg) Branch tablet anastrozole 2020-06 Yes [id number] 1mg Take 1 Univers 1 mg tablet 0-13 tablet by ity of 00:00: mouth [place] 00 daily Medical Branch calcium 2020-06 Yes 500mg Take 1 Univers carbonate 0-13 tablet by ity o f 500 mg 00:00: mouth [place] calcium 00 daily. Medical (1,250 mg) Branch tablet calcium 2020-06 Yes 500mg Take 1 Univers carbonate 0-13 tablet by ity o f 500 mg 00:00: mouth [place] calcium 00 daily. Medical (1,250 mg) Branch tablet anastrozole 2020-06 No [id number] 1mg Take 1 Univers 1 mg tablet 0-13 - tablet by it y of 00:00: 00:00 mouth [place] 00 :00 daily Medical Branch benzonatate Yes [id number] 100mg Take 1 Univers 100 mg 9-02 capsule by ity of capsule 00:00: mouth as [place] 00 needed for Medical Cough for Branch up to 30 doses. furosemide 2020-0 Yes [id number] 20mg Take 0.5 Univers 40 mg 9-02 tablets by ity of tablet 00:00: mouth [place] 00 every Medical morning. Branch benzonatate 2020-0 Yes [id number] 100mg Take 1 Univers 100 mg 9-02 capsule by ity of capsule 00:00: mouth as [place] 00 needed for Medical Cough for Branch up to 30 doses. benzonatate 2020-0 Yes [id number] 100mg Take 1 Univers 100 mg 9-02 capsule by ity of capsule 00:00: mouth as [place] 00 needed for Medical Cough for Branch up to 30 doses. benzonatate 2020-0 Yes [id number] 100mg Take 1 Univers 100 mg 9-02 capsule by ity of capsule 00:00: mouth as [place] 00 needed for Medical Cough for Branch up to 30 doses. benzonatate 2020-0 Yes [id number] 100mg Take 1 Univers 100 mg 9-02 capsule by ity of capsule 00:00: mouth as [place] 00 needed for Medical Cough for Branch up to 30 doses. benzonatate 2020-0 Yes [id number] 100mg Take 1 Univers 100 mg 9-02 capsule by ity of capsule 00:00: mouth as [place] 00 needed for Medical Cough for Branch up to 30 doses. benzonatate 2020-0 Yes [id number] 100mg Take 1 Univers 100 mg 9-02 capsule by ity of capsule 00:00: mouth as [place] 00 needed for Medical Cough for Branch up to 30 doses. benzonatate 2020-0 Yes [id number] 100mg Take 1 Univers 100 mg 9-02 capsule by ity of capsule 00:00: mouth as [place] 00 needed for Medical Cough for Branch up to 30 doses. benzonatate 2020-0 Yes [id number] 100mg Take 1 Univers 100 mg 9-02 capsule by ity of capsule 00:00: mouth as [place] 00 needed for Medical Cough for Branch up to 30 doses. benzonatate 2020-0 Yes [id number] 100mg Take 1 Univers 100 mg 9-02 capsule by ity of capsule 00:00: mouth as [place] 00 needed for Medical Cough for Branch up to 30 doses. benzonatate 2020-0 Yes [id number] 100mg Take 1 Univers 100 mg 9-02 capsule by ity of capsule 00:00: mouth as [place] 00 needed for Medical Cough for Branch up to 30 doses. benzonatate 2020-0 Yes [id number] 100mg Take 1 Univers 100 mg 9-02 capsule by ity of capsule 00:00: mouth as [place] 00 needed for Medical Cough for Branch up to 30 doses. benzonatate 2020-0 Yes [id number] 100mg Take 1 Univers 100 mg 9-02 capsule by ity of capsule 00:00: mouth as [place] 00 needed for Medical Cough for Branch up to 30 doses. benzonatate 2020-0 Yes [id number] 100mg Take 1 Univers 100 mg 9-02 capsule by ity of capsule 00:00: mouth as [place] 00 needed for Medical Cough for Branch up to 30 doses. benzonatate 2020-0 Yes [id number] 100mg Take 1 Univers 100 mg 9-02 capsule by ity of capsule 00:00: mouth as [place] 00 needed for Medical Cough for Branch up to 30 doses. benzonatate 2020-0 Yes [id number] 100mg Take 1 Univers 100 mg 9-02 capsule by ity of capsule 00:00: mouth as [place] 00 needed for Medical Cough for Branch up to 30 doses. benzonatate 2020-0 Yes [id number] 100mg Take 1 Univers 100 mg 9-02 capsule by ity of capsule 00:00: mouth as [place] 00 needed for Medical Cough for Branch up to 30 doses. benzonatate 2020-0 Yes [id number] 100mg Take 1 Univers 100 mg 9-02 capsule by ity of capsule 00:00: mouth as [place] 00 needed for Medical Cough for Branch up to 30 doses. benzonatate 2020-0 Yes [id number] 100mg Take 1 Univers 100 mg 9-02 capsule by ity of capsule 00:00: mouth as [place] 00 needed for Medical Cough for Branch up to 30 doses. benzonatate 2020-0 Yes [id number] 100mg Take 1 Univers 100 mg 9-02 capsule by ity of capsule 00:00: mouth as [place] 00 needed for Medical Cough for Branch up to 30 doses. benzonatate 2020-0 Yes [id number] 100mg Take 1 Univers 100 mg 9-02 capsule by ity of capsule 00:00: mouth as [place] 00 needed for Medical Cough for Branch up to 30 doses. benzonatate 2020-0 Yes [id number] 100mg Take 1 Univers 100 mg 9-02 capsule by ity of capsule 00:00: mouth as [place] 00 needed for Medical Cough for Branch up to 30 doses. benzonatate Yes [id number] 100mg Take 1 Univers 100 mg 02-16 capsule by ity of capsule 00:00: mouth as [place] 00 needed for Medical Cough for Branch up to 30 doses. furosemide 2- No [id number] 20mg Take 0.5 Univers 40 mg 02-16 09-12 tablets by ity of tablet 00:00: 00:00 mouth [place] 00 :00 every Medical morning. Branch anastrozole Yes Carcinoma 1mg Take 1 Univers 1 mg tablet 5-06 of breast, tablet by ity of 00:00: ER+ and mouth [place] 00 MS+, left daily Medical Branch anastrozole Yes Carcinoma 1mg Take 1 Univers 1 mg tablet 5-06 of breast, tablet by ity of 00:00: ER+ and mouth [place] 00 MS+, left daily Medical Branch [place]-3 Yes 1{capsu Take 1 Cap U nivers Fatty Acids 3-26 le} by mouth ity of (FISH OIL) 23:51: daily. [place] 300 mg Cap 10 Medical Branch MULTIVITAMI Yes 1{tbl} Take 1 Tab Univers N (MULTIPLE 3-26 by mouth ity of VITAMINS 23:51: daily. [place] ORAL) 10 Medical Branch venlafaxine Yes 75mg Take 75 mg Univers XR (EFFEXOR 3-26 by mouth ity of XR) 75 mg 23:51: daily with [place] 24 hr 10 breakfast. Medical capsule 150mg in Branch AM and 75mg qhs HYDROcodone Yes 1{tbl} Take 1 Tab Univers -acetaminop 3-26 by mouth ity of hen (NORCO) 23:51: every 8 [place] 10-325 mg 10 (eight) Medical tablet hours as Branch needed for Pain (scale 4-6) or Pain (scale 7-10). ferrous Yes 325mg Take 325 Unive rs sulfate 325 3-26 mg by ity of mg (65 mg 23:51: mouth [place] iron) EC 10 daily. Medical tablet Branch dextran Yes Place in Univer s 70/hypromel 3-26 each eye ity of lose 23:51: as needed. [place] (ARTIFICIAL 10 Medical TEARS Branch OPHTHALMIC) aspirin 81 Yes 81mg Take 81 mg U nivers mg chewable 3-26 by mouth ity of tablet 23:51: daily. [address] Branch [place]-3 Yes 1{capsu Take 1 Cap U nivers Fatty Acids 3-26 le} by mouth ity of (FISH OIL) 23:51: daily. [place] [address] [place] [address] MULTIVITAMI Yes 1{tbl} Take 1 Tab Univers N (MULTIPLE 3-26 by mouth ity of VITAMINS 23:51: daily. [place] ORAL) [address] [place] [address] Branch venlafaxine Yes 75mg Take 75 mg Univers XR (EFFEXOR 3-26 by mouth ity of XR) 75 mg 23:51: daily with [place] 24 hr 10 breakfast. Medical capsule 150mg in Branch AM and 75mg qhs HYDROcodone Yes 1{tbl} Take 1 Tab Univers -acetaminop 3-26 by mouth ity of hen (NORCO) 23:51: every 8 [place] 10-325 mg 10 (eight) Medical tablet hours as Branch needed for Pain (scale 4-6) or Pain (scale 7-10). ferrous Yes 325mg Take 325 Unive rs sulfate 325 3-26 mg by ity of mg (65 mg 23:51: mouth [place] iron) EC 10 daily. Medical tablet Branch dextran Yes Place in Univer s 70/hypromel 3-26 each eye ity of lose 23:51: as needed. [place] (ARTIFICIAL 10 Medical TEARS Branch OPHTHALMIC) aspirin 81 Yes 81mg Take 81 mg U nivers mg chewable 3-26 by mouth ity of tablet 23:51: daily. [address] Branch acetaminoph Yes [id number] 500mg Take 1 [facility] (TYLENOL 3-25 tablet by [facility] of EXTRA 00:00: mouth [place] STRENGTH) 00 every 8 Medical 500 mg (eight) Branch tablet hours. ibuprofen Yes [id number] 600mg Take 1 [facility] 600 mg 3-25 tablet by [facility] of tablet 00:00: mouth [place] 00 every 8 Medical (eight) Branch hours. acetaminoph Yes [id number] 500mg Take 1 [facility] (TYLENOL 3-25 tablet by [facility] of EXTRA 00:00: mouth [place] STRENGTH) 00 every 8 Medical 500 mg (eight) Branch tablet hours. ibuprofen 1-0 Yes [id number] 600mg Take 1 [facility] 600 mg 3-25 tablet by [facility] of tablet 00:00: mouth [place] 00 every 8 Medical (eight) Branch hours. acetaminoph 1-0 Yes [id number] 500mg Take 1 [facility] (TYLENOL 3-25 tablet by [facility] of EXTRA 00:00: mouth [place] STRENGTH) 00 every 8 Medical 500 mg (eight) Branch tablet hours. ibuprofen 2020-0 Yes [id number] 600mg Take 1 [facility] 600 mg 3-25 tablet by [facility] of tablet 00:00: mouth [place] 00 every 8 Medical (eight) Branch hours. acetaminoph 2020-0 Yes [id number] 500mg Take 1 [facility] (TYLENOL 3-25 tablet by [facility] of EXTRA 00:00: mouth [place] STRENGTH) 00 every 8 Medical 500 mg (eight) Branch tablet hours. ibuprofen 2020-0 Yes [id number] 600mg Take 1 [facility] 600 mg 3-25 tablet by [facility] of tablet 00:00: mouth [place] 00 every 8 Medical (eight) Branch hours. acetaminoph 2020-0 Yes [id number] 500mg Take 1 [facility] (TYLENOL 3-25 tablet by [facility] of EXTRA 00:00: mouth [place] STRENGTH) 00 every 8 Medical 500 mg (eight) Branch tablet hours. ibuprofen 2020-0 Yes [id number] 600mg Take 1 [facility] 600 mg 3-25 tablet by [facility] of tablet 00:00: mouth [place] 00 every 8 Medical (eight) Branch hours. acetaminoph 2020-0 Yes [id number] 500mg Take 1 [facility] (TYLENOL 3-25 tablet by [facility] of EXTRA 00:00: mouth [place] STRENGTH) 00 every 8 Medical 500 mg (eight) Branch tablet hours. ibuprofen 2020-0 Yes [id number] 600mg Take 1 [facility] 600 mg 3-25 tablet by [facility] of tablet 00:00: mouth [place] 00 every 8 Medical (eight) Branch hours. acetaminoph 1-0 Yes [id number] 500mg Take 1 [facility] (TYLENOL 3-25 tablet by [facility] of EXTRA 00:00: mouth [place] STRENGTH) 00 every 8 Medical 500 mg (eight) Branch tablet hours. ibuprofen 2020-0 Yes [id number] 600mg Take 1 [facility] 600 mg 3-25 tablet by [facility] of tablet 00:00: mouth [place] 00 every 8 Medical (eight) Branch hours. acetaminoph 2020-0 Yes [id number] 500mg Take 1 [facility] (TYLENOL 3-25 tablet by [facility] of EXTRA 00:00: mouth [place] STRENGTH) 00 every 8 Medical 500 mg (eight) Branch tablet hours. ibuprofen 2020-0 Yes [id number] 600mg Take 1 [facility] 600 mg 3-25 tablet by [facility] of tablet 00:00: mouth [place] 00 every 8 Medical (eight) Branch hours. acetaminoph 2020-0 Yes [id number] 500mg Take 1 [facility] (TYLENOL 3-25 tablet by [facility] of EXTRA 00:00: mouth [place] STRENGTH) 00 every 8 Medical 500 mg (eight) Branch tablet hours. ibuprofen 2020-0 Yes [id number] 600mg Take 1 [facility] 600 mg 3-25 tablet by [facility] of tablet 00:00: mouth [place] 00 every 8 Medical (eight) Branch hours. acetaminoph 2020-0 Yes [id number] 500mg Take 1 [facility] (TYLENOL 3-25 tablet by [facility] of EXTRA 00:00: mouth [place] STRENGTH) 00 every 8 Medical 500 mg (eight) Branch tablet hours. ibuprofen 2020-0 Yes [id number] 600mg Take 1 [facility] 600 mg 3-25 tablet by [facility] of tablet 00:00: mouth [place] 00 every 8 Medical (eight) Branch hours. acetaminoph 2020-0 Yes [id number] 500mg Take 1 [facility] (TYLENOL 3-25 tablet by [facility] of EXTRA 00:00: mouth [place] STRENGTH) 00 every 8 Medical 500 mg (eight) Branch tablet hours. ibuprofen 2020-0 Yes [id number] 600mg Take 1 [facility] 600 mg 3-25 tablet by [facility] of tablet 00:00: mouth [place] 00 every 8 Medical (eight) Branch hours. acetaminoph 2020-0 Yes [id number] 500mg Take 1 [facility] (TYLENOL 3-25 tablet by [facility] of EXTRA 00:00: mouth [place] STRENGTH) 00 every 8 Medical 500 mg (eight) Branch tablet hours. ibuprofen 2020-0 Yes [id number] 600mg Take 1 [facility] 600 mg 3-25 tablet by [facility] of tablet 00:00: mouth [place] 00 every 8 Medical (eight) Branch hours. acetaminoph 2021-0 Yes [id number] 500mg Take 1 [facility] (TYLENOL 3-25 tablet by it[facility] of EXTRA 00:00: mouth [place] STRENGTH) 00 every 8 Medical 500 mg (eight) Branch tablet hours. ibuprofen 2020-0 Yes [id number] 600mg Take 1 [facility] 600 mg 3-25 tablet by [facility] of tablet 00:00: mouth [place] 00 every 8 Medical (eight) Branch hours. acetaminoph 2020-0 Yes [id number] 500mg Take 1 [facility] (TYLENOL 3-25 tablet by [facility] of EXTRA 00:00: mouth [place] STRENGTH) 00 every 8 Medical 500 mg (eight) Branch tablet hours. ibuprofen 2020-0 Yes [id number] 600mg Take 1 [facility] 600 mg 3-25 tablet by [facility] of tablet 00:00: mouth [place] 00 every 8 Medical (eight) Branch hours. acetaminoph 2020-0 Yes [id number] 500mg Take 1 [facility] (TYLENOL 3-25 tablet by [facility] of EXTRA 00:00: mouth [place] STRENGTH) 00 every 8 Medical 500 mg (eight) Branch tablet hours. ibuprofen 2020-0 Yes [id number] 600mg Take 1 [facility] 600 mg 3-25 tablet by [facility] of tablet 00:00: mouth [place] 00 every 8 Medical (eight) Branch hours. acetaminoph 2020-0 Yes [id number] 500mg Take 1 [facility] (TYLENOL 3-25 tablet by [facility] of EXTRA 00:00: mouth [place] STRENGTH) 00 every 8 Medical 500 mg (eight) Branch tablet hours. ibuprofen 2020-0 Yes [id number] 600mg Take 1 [facility] 600 mg 3-25 tablet by [facility] of tablet 00:00: mouth [place] 00 every 8 Medical (eight) Branch hours. acetaminoph 2020-0 Yes [id number] 500mg Take 1 [facility] (TYLENOL 3-25 tablet by [facility] of EXTRA 00:00: mouth [place] STRENGTH) 00 every 8 Medical 500 mg (eight) Branch tablet hours. ibuprofen 2020-0 Yes [id number] 600mg Take 1 [facility] 600 mg 3-25 tablet by [facility] of tablet 00:00: mouth [place] 00 every 8 Medical (eight) Branch hours. acetaminoph 1-0 Yes [id number] 500mg Take 1 [facility] (TYLENOL 3-25 tablet by [facility] of EXTRA 00:00: mouth [place] STRENGTH) 00 every 8 Medical 500 mg (eight) Branch tablet hours. ibuprofen 1-0 Yes [id number] 600mg Take 1 [facility] 600 mg 3-25 tablet by [facility] of tablet 00:00: mouth [place] 00 every 8 Medical (eight) Branch hours. acetaminoph 2021-0 Yes [id number] 500mg Take 1 [facility] (TYLENOL 3-25 tablet by [facility] of EXTRA 00:00: mouth [place] STRENGTH) 00 every 8 Medical 500 mg (eight) Branch tablet hours. ibuprofen 1-0 Yes [id number] 600mg Take 1 [facility] 600 mg 3-25 tablet by [facility] of tablet 00:00: mouth [place] 00 every 8 Medical (eight) Branch hours. acetaminoph 1-0 Yes [id number] 500mg Take 1 [facility] (TYLENOL 3-25 tablet by [facility] of EXTRA 00:00: mouth [place] STRENGTH) 00 every 8 Medical 500 mg (eight) Branch tablet hours. ibuprofen 1-0 Yes [id number] 600mg Take 1 [facility] 600 mg 3-25 tablet by [facility] of tablet 00:00: mouth [place] 00 every 8 Medical (eight) Branch hours. acetaminoph 2020-0 Yes [id number] 500mg Take 1 [facility] (TYLENOL 3-25 tablet by [facility] of EXTRA 00:00: mouth [place] STRENGTH) 00 every 8 Medical 500 mg (eight) Branch tablet hours. ibuprofen 2020-0 Yes [id number] 600mg Take 1 [facility] 600 mg 3-25 tablet by [facility] of tablet 00:00: mouth [place] 00 every 8 Medical (eight) Branch hours. acetaminoph 1-0 Yes [id number] 500mg Take 1 [facility] (TYLENOL 3-25 tablet by [facility] of EXTRA 00:00: mouth [place] STRENGTH) 00 every 8 Medical 500 mg (eight) Branch tablet hours. ibuprofen 1-0 Yes [id number] 600mg Take 1 [facility] 600 mg 3-25 tablet by [facility] of tablet 00:00: mouth [place] 00 every 8 Medical (eight) Branch hours. acetaminoph 2021-0 Yes [id number] 500mg Take 1 [facility] (TYLENOL 3-25 tablet by [facility] of EXTRA 00:00: mouth [place] STRENGTH) 00 every 8 Medical 500 mg (eight) Branch tablet hours. ibuprofen 1-0 Yes [id number] 600mg Take 1 [facility] 600 mg 3-25 tablet by [facility] of tablet 00:00: mouth [place] 00 every 8 Medical (eight) Branch hours. 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 ibuprofen 0 Yes Secondary 600mg Take 1 [facility] 600 mg 3-25 malignancy tablet by it y of tablet 00:00: of axillary mouth [place] 00 node every 8 Medical (eight) Branch hours. acetaminoph 0 Yes Secondary 500mg Take 1 [facility] en (TYLENOL 3-25 malignancy tablet by [facility] EXTRA 00:00: of [place]illary [place] 00 node every 8 Medical 500 mg (eight) Branch tablet hours. ibuprofen 0 Yes Secondary 600mg Take 1 [facility] 600 mg 3-25 malignancy tablet by it y of tablet 00:00: of axillary [place] 00 node every 8 Medical (eight) Branch hours. furosemide 2020- Yes 20mg Take 0.5 [facility] vers 40 mg 2-09 tablets by [facility] of tablet 00:00: mouth [place] 00 every Medical morning. Branch furosemide 0 Yes 20mg Take 0.5 [facility] vers 40 mg 2-09 tablets by [facility] of tablet 00:00: mouth [place] 00 every Medical morning. Branch spironolact Yes Essential 25mg Take 1 [facility] one 25 mg 2-04 hypertensio tablet by ity of tablet 00:00: n mouth [place] 00 daily. Medical Branch spironolact Yes Essential 25mg Take 1 [facility] one 25 mg 2-04 hypertensio tablet by ity of tablet 00:00: n mouth [place] 00 daily. Medical Branch venlafaxine Yes 1{capsu Take 1 [facility] n[facility] XR 150 mg 1-07 le} capsule by ity of 24 hr 00:00: mouth [place] capsule 00 daily. Medical Branch venlafaxine 0 Yes 1{capsu Take 1 [facility] n[facility] XR 150 mg 1-07 le} capsule by ity of 24 hr 00:00: mouth [place] capsule 00 daily. Medical Branch venlafaxine 2020-0 Yes 1{capsu Take 1 [facility] n[facility] XR 150 mg 1-07 le} capsule by ity of 24 hr 00:00: mouth [place] capsule 00 daily. Medical Branch venlafaxine 2020-0 Yes 1{capsu Take 1 [facility] n[facility] XR 150 mg 1-07 le} capsule by ity of 24 hr 00:00: mouth [place] capsule 00 daily. Medical Branch venlafaxine 2020-0 Yes 1{capsu Take 1 [facility] nivers XR 150 mg 1-07 le} capsule by ity of 24 hr 00:00: mouth [place] capsule 00 daily. Medical Branch venlafaxine 2020-0 Yes 1{capsu Take 1 [facility] nivers XR 150 mg 1-07 le} capsule by ity of 24 hr 00:00: mouth [place] capsule 00 daily. Medical Branch venlafaxine 2020-0 Yes 1{capsu Take 1 [facility] n[facility] XR 150 mg 1-07 le} capsule by ity of 24 hr 00:00: mouth [place] capsule 00 daily. Medical Branch venlafaxine 2020-0 Yes 1{capsu Take 1 [facility] nivers XR 150 mg 1-07 le} capsule by ity of 24 hr 00:00: mouth [place] capsule 00 daily. Medical Branch venlafaxine 2020-0 Yes 1{capsu Take 1 [facility] nivers XR 150 mg 1-07 le} capsule by ity of 24 hr 00:00: mouth [place] capsule 00 daily. Medical Branch venlafaxine 2020-0 Yes 1{capsu Take 1 [facility] n[facility] XR 150 mg 1-07 le} capsule by ity of 24 hr 00:00: mouth [place] capsule 00 daily. Medical Branch venlafaxine 2020-0 Yes 1{capsu Take 1 [facility] nivers XR 150 mg 1-07 le} capsule by ity of 24 hr 00:00: mouth [place] capsule 00 daily. Medical Branch venlafaxine 2020-0 Yes 1{capsu Take 1 [facility] nivers XR 150 mg 1-07 le} capsule by ity of 24 hr 00:00: mouth [place] capsule 00 daily. Medical Branch venlafaxine 2020-0 Yes 1{capsu Take 1 [facility] nivers XR 150 mg 1-07 le} capsule by ity of 24 hr 00:00: mouth [place] capsule 00 daily. Medical Branch venlafaxine 2020-0 Yes 1{capsu Take 1 [facility] nivers XR 150 mg 1-07 le} capsule by ity of 24 hr 00:00: mouth [place] capsule 00 daily. Medical Branch venlafaxine 2020-0 Yes 1{capsu Take 1 [facility] n[facility] XR 150 mg 1-07 le} capsule by ity of 24 hr 00:00: mouth [place] capsule 00 daily. Medical Branch venlafaxine 2020-0 Yes 1{capsu Take 1 [facility] nivers XR 150 mg 1-07 le} capsule by ity of 24 hr 00:00: mouth [place] capsule 00 daily. Medical Branch venlafaxine 2020-0 Yes 1{capsu Take 1 [facility] nivers XR 150 mg 1-07 le} capsule by ity of 24 hr 00:00: mouth [place] capsule 00 daily. Medical Branch venlafaxine 2020-0 Yes 1{capsu Take 1 [facility] nivers XR 150 mg 1-07 le} capsule by ity of 24 hr 00:00: mouth [place] capsule 00 daily. Medical Branch venlafaxine 2020-0 Yes 1{capsu Take 1 [facility] nivers XR 150 mg 1-07 le} capsule by ity of 24 hr 00:00: mouth [place] capsule 00 daily. Medical Branch venlafaxine 2020-0 Yes 1{capsu Take 1 [facility] nivers XR 150 mg 1-07 le} capsule by ity of 24 hr 00:00: mouth [place] capsule 00 daily. Medical Branch venlafaxine 2020-0 Yes 1{capsu Take 1 [facility] n[facility] XR 150 mg 1-07 le} capsule by ity of 24 hr 00:00: mouth [place] capsule 00 daily. Medical Branch venlafaxine 2020-0 Yes 1{capsu Take 1 [facility] nivers XR 150 mg 1-07 le} capsule by ity of 24 hr 00:00: mouth [place] capsule 00 daily. Medical Branch venlafaxine 2020-0 Yes 1{capsu Take 1 [facility] nivers XR 150 mg 1-07 le} capsule by ity of 24 hr 00:00: mouth [place] capsule 00 daily. Medical Branch venlafaxine 2020-0 Yes 1{capsu Take 1 [facility] nivers XR 150 mg 1-07 le} capsule by ity of 24 hr 00:00: mouth [place] capsule 00 daily. Medical Branch venlafaxine 2020-0 Yes 1{capsu Take 1 [facility] n[facility] XR 150 mg 1-07 le} capsule by ity of 24 hr 00:00: mouth [place] capsule 00 daily. Medical Branch levalbutero 2019- Yes [id number] .31mg Inhale [facility] l (XOPENEX) 2-01 0.31 mg 3 ity of 0.31 mg/3 00:00: (three) [place] mL 00 times Medical nebulizer daily as Branch solution needed for Wheezing or Shortness of Breath. cetirizine 2019-06 Yes [id number] 10mg Take 1 [facility] nivers 10 mg 2-01 tablet by ity of tablet 00:00: mouth [place] 00 daily. Medical Branch levalbutero 2019-06 Yes [id number] .31mg Inhale [facility] (XOPENEX) 2-01 0.31 mg 3 ity of 0.31 mg/3 00:00: (three) [place] mL 00 times Medical nebulizer daily as Branch solution needed for Wheezing or Shortness of Breath. cetirizine 2019-06 Yes [id number] 10mg Take 1 [facility] nivers 10 mg 2-01 tablet by ity of tablet 00:00: mouth [place] 00 daily. Medical Branch levalbutero 2019-06 Yes [id number] .31mg Inhale [facility] (XOPENEX) 2-01 0.31 mg 3 ity of 0.31 mg/3 00:00: (three) [place] mL 00 times Medical nebulizer daily as Branch solution needed for Wheezing or Shortness of Breath. cetirizine 2019-06 Yes [id number] 10mg Take 1 [facility] nivers 10 mg 2-01 tablet by ity of tablet 00:00: mouth [place] 00 daily. Medical Branch levalbutero 2019-06 Yes [id number] .31mg Inhale [facility] (XOPENEX) 2-01 0.31 mg 3 ity of 0.31 mg/3 00:00: (three) [place] mL 00 times Medical nebulizer daily as Branch solution needed for Wheezing or Shortness of Breath. cetirizine 2019-06 Yes [id number] 10mg Take 1 [facility] nivers 10 mg 2-01 tablet by ity of tablet 00:00: mouth [place] 00 daily. Medical Branch levalbutero 2019-06 Yes [id number] .31mg Inhale [facility] (XOPENEX) 2-01 0.31 mg 3 ity of 0.31 mg/3 00:00: (three) [place] mL 00 times Medical nebulizer daily as Branch solution needed for Wheezing or Shortness of Breath. cetirizine 2019-06 Yes [id number] 10mg Take 1 [facility] nivers 10 mg 2-01 tablet by ity of tablet 00:00: mouth [place] 00 daily. Medical Branch levalbutero 2019- Yes [id number] .31mg Inhale [facility] (XOPENEX) 2-01 0.31 mg 3 ity of 0.31 mg/3 00:00: (three) [place] mL 00 times Medical nebulizer daily as Branch solution needed for Wheezing or Shortness of Breath. cetirizine 2019-06 Yes [id number] 10mg Take 1 [facility] nivers 10 mg 2-01 tablet by ity of tablet 00:00: mouth [place] 00 daily. Medical Branch levalbutero 2019-06 Yes [id number] .31mg Inhale [facility] (XOPENEX) 2-01 0.31 mg 3 ity of 0.31 mg/3 00:00: (three) [place] mL 00 times Medical nebulizer daily as Branch solution needed for Wheezing or Shortness of Breath. cetirizine 2019-06 Yes [id number] 10mg Take 1 [facility] nivers 10 mg 2-01 tablet by ity of tablet 00:00: mouth [place] 00 daily. Medical Branch levalbutero 2019-06 Yes [id number] .31mg Inhale [facility] (XOPENEX) 2-01 0.31 mg 3 ity of 0.31 mg/3 00:00: (three) [place] mL 00 times Medical nebulizer daily as Branch solution needed for Wheezing or Shortness of Breath. cetirizine 2019-06 Yes [id number] 10mg Take 1 [facility] nivers 10 mg 2-01 tablet by ity of tablet 00:00: mouth [place] 00 daily. Medical Branch levalbutero 2019-06 Yes [id number] .31mg Inhale [facility] (XOPENEX) 2-01 0.31 mg 3 ity of 0.31 mg/3 00:00: (three) [place] mL 00 times Medical nebulizer daily as Branch solution needed for Wheezing or Shortness of Breath. cetirizine 2019-06 Yes [id number] 10mg Take 1 [facility] nivers 10 mg 2-01 tablet by ity of tablet 00:00: mouth [place] 00 daily. Medical Branch levalbutero 2019-06 Yes [id number] .31mg Inhale [facility] (XOPENEX) 2-01 0.31 mg 3 ity of 0.31 mg/3 00:00: (three) [place] mL 00 times Medical nebulizer daily as Branch solution needed for Wheezing or Shortness of Breath. cetirizine 2019- Yes [id number] 10mg Take 1 [facility] nivers 10 mg 2-01 tablet by [facility]y of tablet 00:00: mouth [place] 00 daily. Medical Branch levalbutero 2019- Yes [id number] .31mg Inhale [facility] (XOPENEX) 2-01 0.31 mg 3 ity of 0.31 mg/3 00:00: (three) [place] mL 00 times Medical nebulizer daily as Branch solution needed for Wheezing or Shortness of Breath. cetirizine 2019-06 Yes [id number] 10mg Take 1 [facility] nivers 10 mg 2-01 tablet by ity of tablet 00:00: mouth [place] 00 daily. Medical Branch levalbutero 2019-06 Yes [id number] .31mg Inhale [facility] (XOPENEX) 2-01 0.31 mg 3 ity of 0.31 mg/3 00:00: (three) [place] mL 00 times Medical nebulizer daily as Branch solution needed for Wheezing or Shortness of Breath. cetirizine 2019-06 Yes [id number] 10mg Take 1 [facility] nivers 10 mg 2-01 tablet by [facility]y of tablet 00:00: mouth [place] 00 daily. Medical Branch levalbutero 2019-06 Yes [id number] .31mg Inhale [facility] (XOPENEX) 2-01 0.31 mg 3 ity of 0.31 mg/3 00:00: (three) [place] mL 00 times Medical nebulizer daily as Branch solution needed for Wheezing or Shortness of Breath. cetirizine 2019-06 Yes [id number] 10mg Take 1 [facility] nivers 10 mg 2-01 tablet by [facility]y of tablet 00:00: mouth [place] 00 daily. Medical Branch levalbutero 2019-06 Yes [id number] .31mg Inhale [facility] (XOPENEX) 2-01 0.31 mg 3 ity of 0.31 mg/3 00:00: (three) [place] mL 00 times Medical nebulizer daily as Branch solution needed for Wheezing or Shortness of Breath. cetirizine 2019-06 Yes [id number] 10mg Take 1 [facility] nivers 10 mg 2-01 tablet by ity of tablet 00:00: mouth [place] 00 daily. Medical Branch levalbutero 2019- Yes [id number] .31mg Inhale [facility] (XOPENEX) 2-01 0.31 mg 3 ity of 0.31 mg/3 00:00: (three) [place] mL 00 times Medical nebulizer daily as Branch solution needed for Wheezing or Shortness of Breath. cetirizine 2019-06 Yes [id number] 10mg Take 1 [facility] nivers 10 mg 2-01 tablet by ity of tablet 00:00: mouth [place] 00 daily. Medical Branch levalbutero 2019-06 Yes [id number] .31mg Inhale [facility] (XOPENEX) 2-01 0.31 mg 3 ity of 0.31 mg/3 00:00: (three) [place] mL 00 times Medical nebulizer daily as Branch solution needed for Wheezing or Shortness of Breath. cetirizine 2019-06 Yes [id number] 10mg Take 1 [facility] nivers 10 mg 2-01 tablet by ity of tablet 00:00: mouth [place] 00 daily. Medical Branch levalbutero 2019-06 Yes [id number] .31mg Inhale [facility] (XOPENEX) 2-01 0.31 mg 3 ity of 0.31 mg/3 00:00: (three) [place] mL 00 times Medical nebulizer daily as Branch solution needed for Wheezing or Shortness of Breath. cetirizine 2019-06 Yes [id number] 10mg Take 1 [facility] nivers 10 mg 2-01 tablet by ity of tablet 00:00: mouth [place] 00 daily. Medical Branch levalbutero 2019-06 Yes [id number] .31mg Inhale [facility] (XOPENEX) 2-01 0.31 mg 3 ity of 0.31 mg/3 00:00: (three) [place] mL 00 times Medical nebulizer daily as Branch solution needed for Wheezing or Shortness of Breath. cetirizine 2019-06 Yes [id number] 10mg Take 1 [facility] nivers 10 mg 2-01 tablet by ity of tablet 00:00: mouth [place] 00 daily. Medical Branch levalbutero 2019-06 Yes [id number] .31mg Inhale [facility] (XOPENEX) 2-01 0.31 mg 3 ity of 0.31 mg/3 00:00: (three) [place] mL 00 times Medical nebulizer daily as Branch solution needed for Wheezing or Shortness of Breath. cetirizine 2019- Yes [id number] 10mg Take 1 [facility] nivers 10 mg 2-01 tablet by [facility]y of tablet 00:00: mouth [place] 00 daily. Medical Branch levalbutero 2019- Yes [id number] .31mg Inhale [facility] (XOPENEX) 2-01 0.31 mg 3 ity of 0.31 mg/3 00:00: (three) [place] mL 00 times Medical nebulizer daily as Branch solution needed for Wheezing or Shortness of Breath. cetirizine 2019-06 Yes [id number] 10mg Take 1 [facility] nivers 10 mg 2-01 tablet by ity of tablet 00:00: mouth [place] 00 daily. Medical Branch levalbutero 2019-06 Yes [id number] .31mg Inhale [facility] (XOPENEX) 2-01 0.31 mg 3 ity of 0.31 mg/3 00:00: (three) [place] mL 00 times Medical nebulizer daily as Branch solution needed for Wheezing or Shortness of Breath. cetirizine 2019-06 Yes [id number] 10mg Take 1 [facility] nivers 10 mg 2-01 tablet by ity of tablet 00:00: mouth [place] 00 daily. Medical Branch levalbutero 2019- Yes [id number] .31mg Inhale [facility] (XOPENEX) 2-01 0.31 mg 3 ity of 0.31 mg/3 00:00: (three) [place] mL 00 times Medical nebulizer daily as Branch solution needed for Wheezing or Shortness of Breath. cetirizine 2019-06 Yes [id number] 10mg Take 1 [facility] nivers 10 mg 2-01 tablet by ity of tablet 00:00: mouth [place] 00 daily. Medical Branch levalbutero 2019- Yes [id number] .31mg Inhale [facility] (XOPENEX) 2-01 0.31 mg 3 ity of 0.31 mg/3 00:00: (three) [place] mL 00 times Medical nebulizer daily as Branch solution needed for Wheezing or Shortness of Breath. cetirizine 2019-06 Yes [id number] 10mg Take 1 [facility] nivers 10 mg 2-01 tablet by ity of tablet 00:00: mouth [place] 00 daily. Medical Branch levalbutero 2019- Yes Upper .31mg Inhale [facility] (XOPENEX) 2-01 airway 0.31 mg 3 i ty of 0.31 mg/3 00:00: cough (three) [place] mL 00 syndrome times Medical nebulizer daily as Branch solution needed for Wheezing or Shortness of Breath. cetirizine 2019- Yes Upper 10mg Take 1 [facility] ers 10 mg 2-01 airway tablet by ity of tablet 00:00: cough mouth [place] 00 syndrome daily. Medical Branch levalbutero 2019- Yes Upper .31mg Inhale [facility] (XOPENEX) 2-01 airway 0.31 mg 3 i ty of 0.31 mg/3 00:00: cough (three) [place] mL 00 syndrome times Medical nebulizer daily as Branch solution needed for Wheezing or Shortness of Breath. cetirizine 2019- Yes Upper 10mg Take 1 [facility] ers 10 mg 2-01 airway tablet by ity of tablet 00:00: cough mouth 00 syndrome daily. Medical Branch carisoprodo 2019- Yes 350mg Take 350 [facility] n[facility] L 350 mg 1-03 mg by ity of tablet 00:00: mouth (three) Medical times Branch daily. carisoprodo 2019- Yes 350mg Take 350 [facility] n[facility] L 350 mg 1-03 mg by ity of tablet 00:00: mouth (three) Medical times Branch daily. carisoprodo 2019- Yes 350mg Take 350 [facility] n[facility] L 350 mg 1-03 mg by ity of tablet 00:00: mouth (three) Medical times Branch daily. carisoprodo 2019- Yes 350mg Take 350 [facility] n[facility] L 350 mg 1-03 mg by ity of tablet 00:00: mouth (three) Medical times Branch daily. carisoprodo 2020- Yes 350mg Take 350 [facility] n[facility] L 350 mg 1-03 mg by ity of tablet 00:00: mouth (three) Medical times Branch daily. carisoprodo 2019- Yes 350mg Take 350 [facility] n[facility] L 350 mg 1-03 mg by ity of tablet 00:00: mouth (three) Medical times Branch daily. carisoprodo 2019-1 Yes 350mg Take 350 [facility] n[facility] L 350 mg 1-03 mg by ity of tablet 00:00: mouth (three) Medical times Branch daily. carisoprodo 2020-1 Yes 350mg Take 350 [facility] n[facility] L 350 mg 1-03 mg by ity of tablet 00:00: mouth (three) Medical times Branch daily. carisoprodo 2020-1 Yes 350mg Take 350 [facility] n[facility] L 350 mg 1-03 mg by ity of tablet 00:00: mouth (three) Medical times Branch daily. carisoprodo 2020-1 Yes 350mg Take 350 [facility] n[facility] L 350 mg 1-03 mg by ity of tablet 00:00: mouth (three) Medical times Branch daily. carisoprodo 2020-1 Yes 350mg Take 350 [facility] n[facility] L 350 mg 1-03 mg by ity of tablet 00:00: mouth (three) Medical times Branch daily. carisoprodo 2020-1 Yes 350mg Take 350 [facility] n[facility] L 350 mg 1-03 mg by ity of tablet 00:00: mouth (three) Medical times Branch daily. carisoprodo 2020-1 Yes 350mg Take 350 [facility] n[facility] L 350 mg 1-03 mg by ity of tablet 00:00: mouth (three) Medical times Branch daily. carisoprodo 2020-1 Yes 350mg Take 350 [facility] n[facility] L 350 mg 1-03 mg by ity of tablet 00:00: mouth (three) Medical times Branch daily. carisoprodo 2020-1 Yes 350mg Take 350 [facility] n[facility] L 350 mg 1-03 mg by ity of tablet 00:00: mouth (three) Medical times Branch daily. carisoprodo 2020-1 Yes 350mg Take 350 [facility] n[facility] L 350 mg 1-03 mg by ity of tablet 00:00: mouth (three) Medical times Branch daily. carisoprodo 2020-1 Yes 350mg Take 350 [facility] n[facility] L 350 mg 1-03 mg by ity of tablet 00:00: mouth (three) Medical times Branch daily. carisoprodo 2020-1 Yes 350mg Take 350 [facility] n[facility] L 350 mg 1-03 mg by ity of tablet 00:00: mouth (three) Medical times Branch daily. carisoprodo 2020- Yes 350mg Take 350 [facility] n[facility] L 350 mg 1-03 mg by ity of tablet 00:00: mouth 3 (three) Medical times Branch daily. carisoprodo 2020-1 Yes 350mg Take 350 [facility] n[facility] L 350 mg 1-03 mg by ity of tablet 00:00: mouth 3 (three) Medical times Branch daily. carisoprodo 2020- Yes 350mg Take 350 [facility] n[facility] L 350 mg 1-03 mg by ity of tablet 00:00: mouth 3 (three) Medical times Branch daily. carisoprodo 2020- Yes 350mg Take 350 [facility] n[facility] L 350 mg 1-03 mg by ity of tablet 00:00: mouth 3 (three) Medical times Branch daily. carisoprodo 2020- Yes 350mg Take 350 [facility] n[facility] L 350 mg 1-03 mg by ity of tablet 00:00: mouth 3 (three) Medical times Branch daily. carisoprodo 2019- Yes Un[facility] L 350 mg 1-03 ity of tablet 00:00: 00 Medical Branch carisoprodo 2019- Yes [facility] L 350 mg 1-03 ity of tablet 00:00: Medical Branch metformin 2019- Yes Type 2 TAKE 1 [facility] ers ER 500 mg 0-27 diabetes TABLET BY i ty of 24 hr 00:00: mellitus MOUTH WITH [place] tablet 00 without FOOD EVERY Medi ana complicatio EVENING Branc h n, without long-term current use of insulin metformin 2019-06 Yes Type 2 TAKE 1 [facility] ers ER 500 mg 0-27 diabetes TABLET BY i ty of 24 hr 00:00: mellitus MOUTH WITH [place] tablet 00 without FOOD EVERY Medi ana complicatio EVENING Branc h n, without long-term current use of insulin losartan-hy 2019-06 Yes 1{tbl} Take 1 [facility] drochloroth 0-22 tablet by ity of iazide 00:00: mouth [place] 50-12.5 mg 00 daily. Medical per tablet Branch losartan-hy 2019-06 Yes 1{tbl} Take 1 [facility] [place] drochloroth 0-22 tablet by ity of iazide 00:00: mouth [place] 50-12.5 mg 00 daily. Medical per tablet Branch esomeprazol 2020-0 Yes Gastroesoph 40mg Take 1 Univers e (NEXIUM) 9-22 ageal capsule by it y of 40 mg 00:00: reflux mouth [place] capsule 00 disease daily with Med ical without breakfast. Branch esophagitis albuterol 2020-0 Yes Mild 2{puff} Inhale 2 U nivers (PROVENTIL 9-22 intermitten Puffs i ty of HFA) 90 00:00: t asthma every 6 [place] mcg/actuati 00 without (six) Medi ana on inhaler complicatio hours as Branch n needed for Wheezing or Shortness of Breath. esomeprazol 2020-0 Yes Gastroesoph 40mg Take 1 Univers e (NEXIUM) 9-22 ageal capsule by it y of 40 mg 00:00: reflux mouth [place] capsule 00 disease daily with Med ical without breakfast. Branch esophagitis albuterol 2020-0 Yes Mild 2{puff} Inhale 2 [facility] nivers (PROVENTIL 9-22 intermitten Puffs i ty of HFA) 90 00:00: t asthma every 6 [place] mcg/actuati 00 without (six) Medi ana on inhaler complicatio hours as Branch n needed for Wheezing or Shortness of Breath. ketoconazol 2020-0 Yes Tinea pedis Apply to [facility] e 2 % cream 7-21 of both area(s) 2 ity of 00:00: feet (two) [place] 00 times Medical daily. Branch ketoconazol 2020-0 Yes Tinea pedis Apply to Univers e 2 % cream 7-21 of both area(s) 2 ity of 00:00: feet (two) [place] 00 times Medical daily. Branch carvediloL 2020-0 Yes (HFpEF) 25mg Take 1 [facility] (COREG) 25 6-17 heart tablet by ity of mg tablet 00:00: failure mouth 2 [place] 00 with (two) Medical preserved times Branch ejection daily with fraction meals. carvediloL 2020-0 Yes (HFpEF) 25mg Take 1 [facility] (COREG) 25 6-17 heart tablet by ity of mg tablet 00:00: failure mouth 2 [place] 00 with (two) Medical preserved times Branch ejection daily with fraction meals. fluticasone 2019-0 Yes [id number] 2{spray Use 2 [facility] propionate 8-28 } Sprays in ity of 50 00:00: each [place] mcg/actuati 00 nostril Medic al on nasal daily. Branch spray fluticasone 2019-0 Yes [id number] 2{spray Use 2 [facility] propionate 8-28 } Sprays in ity of 50 00:00: each [place] mcg/actuati 00 nostril Medic al on nasal daily. Branch spray fluticasone 2019-0 Yes [id number] 2{spray Use 2 [facility] propionate 8-28 } Sprays in ity of 50 00:00: each [place] mcg/actuati 00 nostril Medic al on nasal daily. Branch spray fluticasone 2019-0 Yes [id number] 2{spray Use 2 [facility] propionate 8-28 } Sprays in ity of 50 00:00: each [place] mcg/actuati 00 nostril Medic al on nasal daily. Branch spray fluticasone 2018-0 Yes [id number] 2{spray Use 2 [facility] propionate 8-28 } Sprays in ity of 50 00:00: each [place] mcg/actuati 00 nostril Medic al on nasal daily. Branch spray fluticasone 2018-0 Yes [id number] 2{spray Use 2 [facility] propionate 8-28 } Sprays in ity of 50 00:00: each [place] mcg/actuati 00 nostril Medic al on nasal daily. Branch spray fluticasone 2018-0 Yes [id number] 2{spray Use 2 [facility] propionate 8-28 } Sprays in ity of 50 00:00: each [place] mcg/actuati 00 nostril Medic al on nasal daily. Branch spray fluticasone 2019-0 Yes [id number] 2{spray Use 2 [facility] propionate 8-28 } Sprays in ity of 50 00:00: each [place] mcg/actuati 00 nostril Medic al on nasal daily. Branch spray fluticasone 2019-0 Yes [id number] 2{spray Use 2 [facility] propionate 8-28 } Sprays in ity of 50 00:00: each [place] mcg/actuati 00 nostril Medic al on nasal daily. Branch spray fluticasone 2019-0 Yes [id number] 2{spray Use 2 [facility] propionate 8-28 } Sprays in ity of 50 00:00: each [place] mcg/actuati 00 nostril Medic al on nasal daily. Branch spray fluticasone 2019-0 Yes [id number] 2{spray Use 2 [facility] propionate 8-28 } Sprays in ity of 50 00:00: each [place] mcg/actuati 00 nostril Medic al on nasal daily. Branch spray fluticasone 2018- Yes [id number] 2{spray Use 2 [facility] propionate 8-28 } Sprays in ity of 50 00:00: each [place] mcg/actuati 00 nostril Medic al on nasal daily. Branch spray fluticasone 2018- Yes [id number] 2{spray Use 2 [facility] propionate 8-28 } Sprays in ity of 50 00:00: each [place] mcg/actuati 00 nostril Medic al on nasal daily. Branch spray fluticasone 2018- Yes [id number] 2{spray Use 2 [facility] propionate 8-28 } Sprays in ity of 50 00:00: each [place] mcg/actuati 00 nostril Medic al on nasal daily. Branch spray fluticasone 2018- Yes [id number] 2{spray Use 2 [facility] propionate 8-28 } Sprays in ity of 50 00:00: each [place] mcg/actuati 00 nostril Medic al on nasal daily. Branch spray fluticasone 2018- Yes [id number] 2{spray Use 2 [facility] propionate 8-28 } Sprays in ity of 50 00:00: each [place] mcg/actuati 00 nostril Medic al on nasal daily. Branch spray fluticasone 2018- Yes [id number] 2{spray Use 2 [facility] propionate 8-28 } Sprays in ity of 50 00:00: each [place] mcg/actuati 00 nostril Medic al on nasal daily. Branch spray fluticasone 2018- Yes [id number] 2{spray Use 2 [facility] propionate 8-28 } Sprays in ity of 50 00:00: each [place] mcg/actuati 00 nostril Medic al on nasal daily. Branch spray fluticasone 2018- Yes [id number] 2{spray Use 2 [facility] propionate 8-28 } Sprays in ity of 50 00:00: each [place] mcg/actuati 00 nostril Medic al on nasal daily. Branch spray fluticasone 2018- Yes [id number] 2{spray Use 2 [facility] propionate 8-28 } Sprays in ity of 50 00:00: each [place] mcg/actuati 00 nostril Medic al on nasal daily. Branch spray fluticasone Yes [id number] 2{spray Use 2 [facility] propionate 8-28 } Sprays in ity of 50 00:00: each [place] mcg/actuati 00 nostril Medic al on nasal daily. Branch spray fluticasone Yes [id number] 2{spray Use 2 [facility] propionate 8-28 } Sprays in ity of 50 00:00: each [place] mcg/actuati 00 nostril Medic al on nasal daily. Branch spray fluticasone Yes [id number] 2{spray Use 2 [facility] propionate 8-28 } Sprays in ity of 50 00:00: each [place] mcg/actuati 00 nostril Medic al on nasal daily. Branch spray fluticasone Yes Upper 2{spray Use 2 U nivers propionate 8-28 airway } Sprays in it y of 50 00:00: cough each [place] mcg/actuati 00 syndrome nostril M edical on nasal daily. Branch spray fluticasone Yes Upper 2{spray Use 2 U nivers propionate 8-28 airway } Sprays in it y of 50 00:00: cough each [place] mcg/actuati 00 syndrome nostril M edical on nasal daily. Branch spray jan 2018 Yes Psoriasis Apply to [facility] 4- area(s) 2 ity of ne 00:00: (two) [place] dipropionat 00 times Medical e 0.05 % daily as Branch ointment needed for Rash or Itching. jan 2018 Yes Psoriasis Apply to [facility] 4- area(s) 2 ity of ne 00:00: (two) [place] dipropionat 00 times Medical e 0.05 % daily as Branch ointment needed for Rash or Itching. meclizine Yes Vertigo 25mg Take 1 Uni vers 25 mg 9-27 tablet by ity of tablet 00:00: mouth 3 (three) Medical times Branch daily as needed for Dizziness. meclizine Yes Vertigo 25mg Take 1 Uni vers 25 mg 9-27 tablet by ity of tablet 00:00: mouth 3 (three) Medical times Branch daily as needed for Dizziness. [place] Sawyer 2017-0 Yes [id number] Use as Univers f, 5-20 directed ity of Adult,Dispo 00:00: Medical (PREVAIL Branch BLADDER PAD EXTRA) Misc Diaper,Brie 2017-0 Yes [id number] Use as Univers f, 5-20 directed ity of Adult,Dispo 00:00: Medical (PREVAIL Branch BLADDER PAD EXTRA) Misc Diaper,Brie 2017-0 Yes [id number] Use as Univers f, 5-20 directed ity of Adult,Dispo 00:00: Medical (PREVAIL Branch BLADDER PAD EXTRA) Misc Diaper,Brie 2017-0 Yes [id number] Use as Univers f, 5-20 directed ity of Adult,Dispo 00:00: Medical (PREVAIL Branch BLADDER PAD EXTRA) Misc Diaper,Brie 2017-0 Yes [id number] Use as Univers f, 5-20 directed ity of Adult,Dispo 00:00: Medical (PREVAIL Branch BLADDER PAD EXTRA) Misc Diaper,Brie 2017-0 Yes [id number] Use as Univers f, 5-20 directed ity of Adult,Dispo 00:00: Medical (PREVAIL Branch BLADDER PAD EXTRA) Misc Diaper,Brie 2017-0 Yes [id number] Use as Univers f, 5-20 directed ity of Adult,Dispo 00:00: Medical (PREVAIL Branch BLADDER PAD EXTRA) Misc Diaper,Brie 2017-0 Yes [id number] Use as Univers f, 5-20 directed ity of Adult,Dispo 00:00: Medical (PREVAIL Branch BLADDER PAD EXTRA) Misc Diaper,Brie 2017-0 Yes [id number] Use as Univers f, 5-20 directed ity of Adult,Dispo 00:00: Medical (PREVAIL Branch BLADDER PAD EXTRA) Misc Diaper,Brie 2017-0 Yes [id number] Use as Univers f, 5-20 directed ity of Adult,Dispo 00:00: Medical (PREVAIL Branch BLADDER PAD EXTRA) Misc Diaper,Brie 2017-0 Yes [id number] Use as Univers f, 5-20 directed ity of Adult,Dispo 00:00: Medical (PREVAIL Branch BLADDER PAD EXTRA) Misc Diaper,Brie 2017-0 Yes [id number] Use as Univers f, 5-20 directed ity of Adult,Dispo 00:00: Medical (PREVAIL Branch BLADDER PAD EXTRA) Misc Diaper,Brie 2017-0 Yes [id number] Use as Univers f, 5-20 directed ity of Adult,Dispo 00:00: Medical (PREVAIL Branch BLADDER PAD EXTRA) Misc Diaper,Brie 2017-0 Yes [id number] Use as Univers f, 5-20 directed ity of Adult,Dispo 00:00: Medical (PREVAIL Branch BLADDER PAD EXTRA) Misc Diaper,Brie 2017-0 Yes [id number] Use as Univers f, 5-20 directed ity of Adult,Dispo 00:00: Medical (PREVAIL Branch BLADDER PAD EXTRA) Misc Diaper,Brie 2017-0 Yes [id number] Use as Univers f, 5-20 directed ity of Adult,Dispo 00:00: Medical (PREVAIL Branch BLADDER PAD EXTRA) Misc Diaper,Brie 2017-0 Yes [id number] Use as Univers f, 5-20 directed ity of Adult,Dispo 00:00: Medical (PREVAIL Branch BLADDER PAD EXTRA) Misc Diaper,Brie 2017-0 Yes [id number] Use as Univers f, 5-20 directed ity of Adult,Dispo 00:00: Medical (PREVAIL Branch BLADDER PAD EXTRA) Misc Diaper,Brie 2017-0 Yes [id number] Use as Univers f, 5-20 directed ity of Adult,Dispo 00:00: Medical (PREVAIL Branch BLADDER PAD EXTRA) Misc Diaper,Brie 2017-0 Yes [id number] Use as Univers f, 5-20 directed ity of Adult,Dispo 00:00: Medical (PREVAIL Branch BLADDER PAD EXTRA) Misc Diaper,Brie 2017-0 Yes [id number] Use as Univers f, 5-20 directed ity of Adult,Dispo 00:00: Medical (PREVAIL Branch BLADDER PAD EXTRA) Misc Diaper,Brie 2017-0 Yes [id number] Use as Univers f, 5-20 directed ity of Adult,Dispo 00:00: [place] sable Medical (PREVAIL Branch BLADDER PAD EXTRA) Misc Diaper,Brie 2017-0 Yes [id number] Use as Univers f, 5-20 directed ity of Adult,Dispo 00:00: [place] sable Medical (PREVAIL Branch BLADDER PAD EXTRA) Misc Diaper,Brie 2017-0 Yes Overactive Use as Univers f, 5-20 bladder directed ity of Adult,Dispo 00:00: [place] sable Medical (PREVAIL Branch BLADDER PAD EXTRA) Misc Diaper,Brie 2017-0 Yes Overactive Use as Univers f, 5-20 bladder directed ity of Adult,Dispo 00:00: [place] sable Medical (PREVAIL Branch BLADDER PAD EXTRA) Misc busPIRone 2016-0 Yes 10mg Take 10 mg [facility] (BUSPAR) 10 7-06 by mouth 3 it y of mg tablet 00:00: (three) [place] 00 times Medical daily. Branch busPIRone 2016-0 Yes 10mg Take 10 mg [facility] (BUSPAR) 10 7-06 by mouth 3 it y of mg tablet 00:00: (three) [place] 00 times Medical daily. Branch busPIRone 2016-0 Yes 10mg Take 10 mg [facility] (BUSPAR) 10 7-06 by mouth 3 it y of mg tablet 00:00: (three) [place] 00 times Medical daily. Branch busPIRone 2016-0 Yes 10mg Take 10 mg [facility] (BUSPAR) 10 7-06 by mouth 3 it y of mg tablet 00:00: (three) [place] 00 times Medical daily. Branch busPIRone 2016-0 Yes 10mg Take 10 mg [facility] (BUSPAR) 10 7-06 by mouth 3 it y of mg tablet 00:00: (three) [place] 00 times Medical daily. Branch busPIRone 2016-0 Yes 10mg Take 10 mg [facility] (BUSPAR) 10 7-06 by mouth 3 it y of mg tablet 00:00: (three) [place] 00 times Medical daily. Branch busPIRone 2016-0 Yes 10mg Take 10 mg [facility] (BUSPAR) 10 7-06 by mouth 3 it y of mg tablet 00:00: (three) [place] 00 times Medical daily. Branch busPIRone 2016-0 Yes 10mg Take 10 mg [facility] (BUSPAR) 10 7-06 by mouth 3 it y of mg tablet 00:00: (three) [place] 00 times Medical daily. Branch busPIRone 2016-0 Yes 10mg Take 10 mg [facility] (BUSPAR) 10 7-06 by mouth 3 it y of mg tablet 00:00: (three) [place] 00 times Medical daily. Branch busPIRone 2016-0 Yes 10mg Take 10 mg [facility] (BUSPAR) 10 7-06 by mouth 3 it y of mg tablet 00:00: (three) [place] 00 times Medical daily. Branch busPIRone 2016-0 Yes 10mg Take 10 mg [facility] (BUSPAR) 10 7-06 by mouth 3 it y of mg tablet 00:00: (three) [place] 00 times Medical daily. Branch busPIRone 2016-0 Yes 10mg Take 10 mg [facility] (BUSPAR) 10 7-06 by mouth 3 it y of mg tablet 00:00: (three) [place] 00 times Medical daily. Branch busPIRone 2016-0 Yes 10mg Take 10 mg [facility] (BUSPAR) 10 7-06 by mouth 3 it y of mg tablet 00:00: (three) [place] 00 times Medical daily. Branch busPIRone 2016-0 Yes 10mg Take 10 mg [facility] (BUSPAR) 10 7-06 by mouth 3 it y of mg tablet 00:00: (three) [place] 00 times Medical daily. Branch busPIRone 2016-0 Yes 10mg Take 10 mg [facility] (BUSPAR) 10 7-06 by mouth 3 it y of mg tablet 00:00: (three) [place] 00 times Medical daily. Branch busPIRone 2016-0 Yes 10mg Take 10 mg [facility] (BUSPAR) 10 7-06 by mouth 3 it y of mg tablet 00:00: (three) [place] 00 times Medical daily. Branch busPIRone 2016-0 Yes 10mg Take 10 mg [facility] (BUSPAR) 10 7-06 by mouth 3 it y of mg tablet 00:00: (three) [place] 00 times Medical daily. Branch busPIRone 2016-0 Yes 10mg Take 10 mg [facility] (BUSPAR) 10 7-06 by mouth 3 it y of mg tablet 00:00: (three) [place] 00 times Medical daily. Branch busPIRone 2016-0 Yes 10mg Take 10 mg [facility] (BUSPAR) 10 7-06 by mouth 3 it y of mg tablet 00:00: (three) [place] 00 times Medical daily. Branch busPIRone 2016-0 Yes 10mg Take 10 mg [facility] (BUSPAR) 10 7-06 by mouth 3 it y of mg tablet 00:00: (three) [place] 00 times Medical daily. Branch busPIRone 2016-0 Yes 10mg Take 10 mg [facility] (BUSPAR) 10 7-06 by mouth 3 it y of mg tablet 00:00: (three) [place] 00 times Medical daily. Branch busPIRone 2016-0 Yes 10mg Take 10 mg [facility] (BUSPAR) 10 7-06 by mouth 3 it y of mg tablet 00:00: (three) [place] 00 times Medical daily. Branch busPIRone 2016-0 Yes 10mg Take 10 mg [facility] (BUSPAR) 10 7-06 by mouth 3 it y of mg tablet 00:00: (three) [place] 00 times Medical daily. Branch busPIRone 2016-0 Yes 10mg Take 10 mg [facility] (BUSPAR) 10 7-06 by mouth 3 it y of mg tablet 00:00: (three) [place] 00 times Medical daily. Branch busPIRone 2016-0 Yes 10mg Take 10 mg [facility] (BUSPAR) 10 7-06 by mouth 3 it y of mg tablet 00:00: (three) [place] 00 times Medical daily. Branch traZODONE 2016-0 Yes 100mg Take 100 Uni vers (DESYREL) 6-09 mg by ity of 100 mg 00:00: mouth at [place] tablet 00 bedtime. Medical Branch traZODONE 2016-0 Yes 100mg Take 100 Uni vers (DESYREL) 6-09 mg by ity of 100 mg 00:00: mouth at [place] tablet 00 bedtime. Medical Branch traZODONE 2016-0 Yes 100mg Take 100 Uni vers (DESYREL) 6-09 mg by ity of 100 mg 00:00: mouth at [place] tablet 00 bedtime. Medical Branch traZODONE 2016-0 Yes 100mg Take 100 Uni vers (DESYREL) 6-09 mg by ity of 100 mg 00:00: mouth at [place] tablet 00 bedtime. Medical Branch traZODONE 2015-0 Yes 100mg Take 100 Uni vers (DESYREL) 6-09 mg by ity of 100 mg 00:00: mouth at [place] tablet 00 bedtime. Medical Branch traZODONE 2015-0 Yes 100mg Take 100 Uni vers (DESYREL) 6-09 mg by ity of 100 mg 00:00: mouth at [place] tablet 00 bedtime. Medical Branch traZODONE 2015-0 Yes 100mg Take 100 Uni vers (DESYREL) 6-09 mg by ity of 100 mg 00:00: mouth at [place] tablet 00 bedtime. Medical Branch traZODONE 0 Yes 100mg Take 100 Uni vers (DESYREL) 6-09 mg by ity of 100 mg 00:00: mouth at [place] tablet 00 bedtime. Medical Branch traZODONE 0 Yes 100mg Take 100 Uni vers (DESYREL) 6-09 mg by ity of 100 mg 00:00: mouth at [place] tablet 00 bedtime. Medical Branch traZODONE 0 Yes 100mg Take 100 Uni vers (DESYREL) 6-09 mg by ity of 100 mg 00:00: mouth at [place] tablet 00 bedtime. Medical Branch traZODONE 0 Yes 100mg Take 100 Uni vers (DESYREL) 6-09 mg by ity of 100 mg 00:00: mouth at [place] tablet 00 bedtime. Medical Branch traZODONE 0 Yes 100mg Take 100 Uni vers (DESYREL) 6-09 mg by ity of 100 mg 00:00: mouth at [place] tablet 00 bedtime. Medical Branch traZODONE 0 Yes 100mg Take 100 Uni vers (DESYREL) 6-09 mg by ity of 100 mg 00:00: mouth at [place] tablet 00 bedtime. Medical Branch traZODONE 2016-0 Yes 100mg Take 100 Uni vers (DESYREL) 6-09 mg by ity of 100 mg 00:00: mouth at [place] tablet 00 bedtime. Medical Branch traZODONE 2015-0 Yes 100mg Take 100 Uni vers (DESYREL) 6-09 mg by ity of 100 mg 00:00: mouth at [place] tablet 00 bedtime. Medical Branch traZODONE 2015-0 Yes 100mg Take 100 Uni vers (DESYREL) 6-09 mg by ity of 100 mg 00:00: mouth at [place] tablet 00 bedtime. Medical Branch traZODONE 0 Yes 100mg Take 100 Uni vers (DESYREL) 6-09 mg by ity of 100 mg 00:00: mouth at [place] tablet 00 bedtime. Medical Branch traZODONE 0 Yes 100mg Take 100 Uni vers (DESYREL) 6-09 mg by ity of 100 mg 00:00: mouth at [place] tablet 00 bedtime. Medical Branch traZODONE 0 Yes 100mg Take 100 Uni vers (DESYREL) 6-09 mg by ity of 100 mg 00:00: mouth at [place] tablet 00 bedtime. [facility] Branch traZODONE 0 Yes 100mg Take 100 Uni vers (DESYREL) 6-09 mg by ity of 100 mg 00:00: mouth at [place] tablet 00 bedtime. [facility] Branch traZODONE 0 Yes 100mg Take 100 Uni vers (DESYREL) 6-09 mg by ity of 100 mg 00:00: mouth at [place] tablet 00 bedtime. [facility] Branch traZODONE 0 Yes 100mg Take 100 Uni vers (DESYREL) 6-09 mg by ity of 100 mg 00:00: mouth at [place] tablet 00 bedtime. [facility] Branch traZODONE 0 Yes 100mg Take 100 Uni vers (DESYREL) 6-09 mg by ity of 100 mg 00:00: mouth at [place] tablet 00 bedtime. [facility] Branch traZODONE 0 Yes 100mg Take 100 Uni vers (DESYREL) 6-09 mg by ity of 100 mg 00:00: mouth at [place] tablet 00 bedtime. [facility] Branch traZODONE 0 Yes 100mg Take 100 Uni vers (DESYREL) 6-09 mg by ity of 100 mg 00:00: mouth at [place] tablet 00 bedtime. Medical Branch Polyethylen 2014-0 Yes [id number] Once daily Univers e Glycol 3-10 as needed ity of 3350 00:00: for Bowel [place] (MIRALAX) 00 movement Medica l 17 gram Branch powder Polyethylen 2014-0 Yes [id number] Once daily Univers e Glycol 3-10 as needed ity of 3350 00:00: for Bowel [place] (MIRALAX) 00 movement Medica l 17 gram Branch powder Polyethylen 2015-0 Yes [id number] Once daily Univers e Glycol 3-10 as needed ity of 3350 00:00: for Bowel [place] (MIRALAX) 00 movement Medica l 17 gram Branch powder Polyethylen 2015-0 Yes [id number] Once daily Univers e Glycol 3-10 as needed ity of 3350 00:00: for Bowel [place] (MIRALAX) 00 movement Medica l 17 gram Branch powder Polyethylen 2015-0 Yes [id number] Once daily Univers e Glycol 3-10 as needed ity of 3350 00:00: for Bowel [place] (MIRALAX) 00 movement Medica l 17 gram Branch powder Polyethylen 2015-0 Yes [id number] Once daily Univers e Glycol 3-10 as needed ity of 3350 00:00: for Bowel [place] (MIRALAX) 00 movement Medica l 17 gram Branch powder Polyethylen 2015-0 Yes [id number] Once daily Univers e Glycol 3-10 as needed ity of 3350 00:00: for Bowel [place] (MIRALAX) 00 movement Medica l 17 gram Branch powder Polyethylen 2015-0 Yes [id number] Once daily Univers e Glycol 3-10 as needed ity of 3350 00:00: for Bowel [place] (MIRALAX) 00 movement Medica l 17 gram Branch powder Polyethylen 2015-0 Yes [id number] Once daily Univers e Glycol 3-10 as needed ity of 3350 00:00: for Bowel [place] (MIRALAX) 00 movement Medica l 17 gram Branch powder Polyethylen 2015-0 Yes [id number] Once daily Univers e Glycol 3-10 as needed ity of 3350 00:00: for Bowel [place] (MIRALAX) 00 movement Medica l 17 gram Branch powder Polyethylen 2015-0 Yes [id number] Once daily Univers e Glycol 3-10 as needed ity of 3350 00:00: for Bowel [place] (MIRALAX) 00 movement Medica l 17 gram Branch powder Polyethylen 2015-0 Yes [id number] Once daily Univers e Glycol 3-10 as needed ity of 3350 00:00: for Bowel [place] (MIRALAX) 00 movement Medica l 17 gram Branch powder Polyethylen 2015-0 Yes [id number] Once daily Univers e Glycol 3-10 as needed ity of 3350 00:00: for Bowel [place] (MIRALAX) 00 movement Medica l 17 gram Branch powder Polyethylen 2015-0 Yes [id number] Once daily Univers e Glycol 3-10 as needed ity of 3350 00:00: for Bowel [place] (MIRALAX) 00 movement Medica l 17 gram Branch powder Polyethylen 2015-0 Yes [id number] Once daily Univers e Glycol 3-10 as needed ity of 3350 00:00: for Bowel [place] (MIRALAX) 00 movement Medica l 17 gram Branch powder Polyethylen 2015-0 Yes [id number] Once daily Univers e Glycol 3-10 as needed ity of 3350 00:00: for Bowel [place] (MIRALAX) 00 movement Medica l 17 gram Branch powder Polyethylen 2015-0 Yes [id number] Once daily Univers e Glycol 3-10 as needed ity of 3350 00:00: for Bowel [place] (MIRALAX) 00 movement Medica l 17 gram Branch powder Polyethylen 2015-0 Yes [id number] Once daily Univers e Glycol 3-10 as needed ity of 3350 00:00: for Bowel [place] (MIRALAX) 00 movement Medica l 17 gram Branch powder Polyethylen 2015-0 Yes [id number] Once daily Univers e Glycol 3-10 as needed ity of 3350 00:00: for Bowel [place] (MIRALAX) 00 movement Medica l 17 gram Branch powder Polyethylen 2015-0 Yes [id number] Once daily Univers e Glycol 3-10 as needed ity of 3350 00:00: for Bowel [place] (MIRALAX) 00 movement Medica l 17 gram Branch powder Polyethylen 2015-0 Yes [id number] Once daily Univers e Glycol 3-10 as needed ity of 3350 00:00: for Bowel [place] (MIRALAX) 00 movement Medica l 17 gram Branch powder Polyethylen 2015-0 Yes [id number] Once daily Univers e Glycol 3-10 as needed ity of 3350 00:00: for Bowel [place] (MIRALAX) 00 movement Medica l 17 gram Branch powder Polyethylen 2015-0 Yes [id number] Once daily Univers e Glycol 3-10 as needed ity of 3350 00:00: for Bowel [place] (MIRALAX) 00 movement Medica l 17 gram Branch powder Polyethylen 2015-0 Yes Constipatio Once daily Univers e Glycol 3-10 n as needed ity of 3350 00:00: for Bowel [place] (MIRALAX) 00 movement Medica l 17 gram Branch powder Polyethylen 2015-0 Yes Constipatio Once daily Univers e Glycol 3-10 n as needed ity of 3350 00:00: for Bowel [place] (MIRALAX) 00 movement Medica l 17 gram Branch powder Facial-Body 0 Yes [id number] Use as Univers Wipes 5-29 directed ity of (MOIST 00:00: [place] WIPES) [facility] Facial-Body 0 Yes [id number] Use as Univers Wipes 5-29 directed ity of (MOIST 00:00: [place] WIPES) [facility] Facial-Body Yes [id number] Use as Univers Wipes 5-29 directed ity of (MOIST 00:00: [place] WIPES) [place] [address] Medical Branch Facial-Body Yes [id number] Use as Univers Wipes 5-29 directed ity of (MOIST 00:00: [place] WIPES) [facility] Facial-Body Yes [id number] Use as Univers Wipes 5-29 directed ity of (MOIST 00:00: [place] WIPES) [place] [address] Medical Branch Facial-Body Yes [id number] Use as Univers Wipes 5-29 directed ity of (MOIST 00:00: [place] WIPES) [place] [address] Medical Branch Facial-Body 2013-0 Yes [id number] Use as Univers Wipes 5-29 directed ity of (MOIST 00:00: [place] WIPES) [place] [address] Medical Branch Facial-Body 2013-0 Yes [id number] Use as Univers Wipes 5-29 directed ity of (MOIST 00:00: [place] WIPES) [facility] 00 Medical Branch Facial-Body 2013-0 Yes [id number] Use as Univers Wipes 5-29 directed ity of (MOIST 00:00: [place] WIPES) [place] [address] Medical Branch Facial-Body 2013-0 Yes [id number] Use as Univers Wipes 5-29 directed ity of (MOIST 00:00: [place] WIPES) [facility] 00 Medical Branch Facial-Body 2013-0 Yes [id number] Use as Univers Wipes 5-29 directed ity of (MOIST 00:00: [place] W[facility]ES[place] [id number] Medical Branch Facial-Body 2013-0 Yes [id number] Use as [facility] Wipes 5-29 directed ity of (MOIST 00:00: [place] [facility] [facility] 00 [facility] Branch Facial-Body 2014-0 Yes [id number] Use as [facility] Wipes 5-29 directed ity of (MOIST 00:00: [place] [facility] [facility] 00 Medical Branch Facial-Body 2014-0 Yes [id number] Use as [facility] Wipes 5-29 directed ity of (MOIST 00:00: [place] [facility] [facility] 00 Medical Branch Facial-Body 2013-0 Yes [id number] Use as [facility] Wipes 5-29 directed ity of (MOIST 00:00: [place] WIP[facility]) [facility] 00 Medical Branch Facial-Body 2013-0 Yes [id number] Use as [facility] Wipes 5-29 directed ity of (MOIST 00:00: [place] [facility]IP[facility]) [facility] 00 Medical Branch Facial-Body 2013-0 Yes [id number] Use as [facility] Wipes 5-29 directed ity of (MOIST 00:00: [place] [facility]) [facility] 00 Medical Branch Facial-Body 2013-0 Yes [id number] Use as [facility] Wipes 5-29 directed ity of (MOIST 00:00: [place] [facility]IP[facility]) [facility] 00 Medical Branch Facial-Body 2013-0 Yes [id number] Use as [facility] Wipes 5-29 directed ity of (MOIST 00:00: [place] WIPES) [facility] 00 Medical Branch Facial-Body 2013-0 Yes [id number] Use as [facility] Wipes 5-29 directed ity of (MOIST 00:00: [place] WIPES) [facility] 00 Medical Branch Facial-Body 2014-0 Yes [id number] Use as [facility] Wipes 5-29 directed ity of (MOIST 00:00: [place] WIPES) [facility] 00 Medical Branch Facial-Body 2014-0 Yes [id number] Use as [facility] Wipes 5-29 directed ity of (MOIST 00:00: [place] WIPES) [facility] 00 Medical Branch Facial-Body 2014-0 Yes [id number] Use as [facility] Wipes 5-29 directed ity of (MOIST 00:00: [place] WIPES) [facility] 00 Medical Branch Facial-Body 2014-0 Yes Overactive Use as [facility] Wipes 5-29 bladder directed ity of (MOIST 00:00: [place] WIPES) [facility] 00 Medical Branch Facial-Body 2013-0 Yes Overactive Use as [facility] Wipes 5-29 bladder directed ity of (MOIST 00:00: [place] WIPES) Misc 00 Medical Branch triamcinolo Yes APPLY TO Un magdaleno ne 9-30 AFFECTED ity of acetonide 00:00[place] ([place]ER[place] 00 DAILY Medical 0.1 % cream Branch triamcinolo Yes APPLY TO Un [place] ne 9-30 AFFECTED ity of acetonide 00:[place] 00 DAILY Medical 0.1 % cream Branch triamcinolo Yes APPLY TO Un [place] ne 9-30 AFFECTED ity of acetonide 00:[place] ([place] 00 DAILY Medical 0.1 % cream Branch triamcinolo Yes APPLY TO Un magdal[place] ne 9-30 AFFECTED ity of acetonide 00:[place] 00 DAILY Medical 0.1 % cream Branch triamcinolo Yes APPLY TO Un [place] ne 9-30 AFFECTED ity of acetonide 00:00: [place] 00 DAILY Medical 0.1 % cream Branch triamcinolo Yes APPLY TO Un [place] ne 9-30 AFFECTED ity of acetonide 00:00: [place] 00 DAILY Medical 0.1 % cream Branch triamcinolo Yes APPLY TO Un [place] ne 9-30 AFFECTED ity of acetonide 00:00: [place] 00 DAILY Medical 0.1 % cream Branch triamcinolo Yes APPLY TO Un [place] ne 9-30 AFFECTED ity of acetonide 00:00: [place] 00 DAILY Medical 0.1 % cream Branch triamcinolo Yes APPLY TO Un mag[place] ne 9-30 AFFECTED ity of acetonide 00:00: [place] 00 DAILY Medical 0.1 % cream Branch triamcinolo Yes APPLY TO Un [place] ne 9-30 AFFECTED ity of acetonide 00:00: [place] 00 DAILY Medical 0.1 % cream Branch triamcinolo Yes APPLY TO Un magdal[place] ne 9-30 AFFECTED ity of acetonide 00:00: [place] 00 DAILY Medical 0.1 % cream Branch triamcinolo Yes APPLY TO Un magdal[place] ne 9-30 AFFECTED ity of acetonide 00:00: [place] ([place]) 00 DAILY Medical 0.1 % cream Branch triamcinolo Yes APPLY TO Un mag[place] ne 9-30 AFFECTED ity of acetonide 00:00: [place] 00 DAILY Medical 0.1 % cream Branch triamcinolo Yes APPLY TO Un magdal[place] ne 9-30 AFFECTED ity of acetonide 00:00: [place] 00 DAILY Medical 0.1 % cream Branch triamcinolo Yes APPLY TO Un magdal[place] ne 9-30 AFFECTED ity of acetonide 00:00: [place]) 00 DAILY Medical 0.1 % cream Branch triamcinolo Yes APPLY TO Un magdal[place] ne 9-30 AFFECTED ity of acetonide 00:00: [place]) 00 DAILY Medical 0.1 % cream Branch triamcinolo Yes APPLY TO Un magdal[place] ne 9-30 AFFECTED ity of acetonide 00:00: [place]) 00 DAILY Medical 0.1 % cream Branch triamcinolo Yes APPLY TO Un [place] ne 9-30 AFFECTED ity of acetonide 00:00: [place]) 00 DAILY Medical 0.1 % cream Branch triamcinolo Yes APPLY TO Un magad[place] ne 9-30 AFFECTED ity of acetonide 00:00: [place]) 00 DAILY Medical 0.1 % cream Branch triamcinolo Yes APPLY TO Un magdal[place] ne 9-30 AFFECTED ity of acetonide 00:00: [place] 00 DAILY Medical 0.1 % cream Branch triamcinolo Yes APPLY TO Un magdal[place] ne 9-30 AFFECTED ity of acetonide 00:00: [place] 00 DAILY Medical 0.1 % cream Branch triamcinolo 2021- No APPLY TO U nivers ne 9-30 - AFFECTED ity of acetonide 00:00: 00:[place] 00 :00 DAILY Medical 0.1 % cream Branch triamcinolo 2021- No APPLY TO Jaleesa sheppard 03-16 AFFECTED ity of acetonide 00:00: 00:00 [place]) 00 :00 DAILY Medical 0.1 % cream Branch Immunizations Ordered Filled Immunization Date Status Comments [facility] e Immunization Name Name Influenza Virus 2022-03-16 Completed Universit y of Vaccine Quad IM, 00:00:00 [place] [facility] Preserv and ABX Branch Free 6 MO-64 YRS Influenza Virus 2022-03-16 Completed Universit y of Vaccine Quad IM, 00:00:00 [place] [facility] Preserv and ABX Branch Free 6 MO-64 YRS Influenza Virus 2022-03-16 Completed Universit y of Vaccine Quad IM, 00:00:00 [place] [facility] Preserv and ABX Branch Free 6 MO-64 YRS Influenza Virus 2022-03-16 Completed Universit y of Vaccine Quad IM, 00:00:00 [place] [facility] Preserv and ABX Branch Free 6 MO-64 YRS Influenza Virus 2022-03-16 Completed Universit y of Vaccine Quad IM, 00:00:00 [place] [facility] Preserv and ABX Branch Free 6 MO-64 YRS Influenza Virus 2022-03-16 Completed Universit y of Vaccine Quad IM, 00:00:00 [place] [facility] Preserv and ABX Branch Free 6 MO-64 YRS Influenza Virus 2022-03-16 Completed Universit y of Vaccine Quad IM, 00:00:00 [place] [facility] Preserv and ABX Branch Free 6 MO-64 YRS Influenza Virus 2022-03-16 Completed Universit y of Vaccine Quad IM, 00:00:00 [place] [facility] Preserv and ABX Branch Free 6 MO-64 YRS Influenza Virus 2022-03-16 Completed Universit y of Vaccine Quad IM, 00:00:00 [place] [facility] Preserv and ABX Branch Free 6 MO-64 YRS Influenza Virus 2022-03-16 Completed Universit y of Vaccine Quad IM, 00:00:00 [place] [facility] Preserv and ABX Branch Free 6 MO-64 YRS Influenza Virus 2022-03-16 Completed Universit y of Vaccine Quad IM, 00:00:00 [place] [facility] Preserv and ABX Branch Free 6 MO-64 YRS Influenza Virus 2022-03-16 Completed Universit y of Vaccine Quad IM, 00:00:00 [place] [facility] Preserv and ABX Branch Free 6 MO-64 YRS Influenza Virus 2022-03-16 Completed Universit y of Vaccine Quad IM, 00:00:00 [place] [facility] Preserv and ABX Branch Free 6 MO-64 YRS Influenza Virus 2022-03-16 Completed Universit y of Vaccine Quad IM, 00:00:00 [place] [facility] Preserv and ABX Branch Free 6 MO-64 YRS Influenza Virus 2022-03-16 Completed Universit y of Vaccine Quad IM, 00:00:00 [place] [facility] Preserv and ABX Branch Free 6 MO-64 YRS Influenza Virus 2022-03-16 Completed Universit y of Vaccine Quad IM, 00:00:00 [place] [facility] Preserv and ABX Branch Free 6 MO-64 YRS Influenza Virus 2022-03-16 Completed Universit y of Vaccine Quad IM, 00:00:00 [place] [facility] Preserv and ABX Branch Free 6 MO-64 YRS SARS-COV-2 COVID-19 2022-01-18 Completed Unive rsity of PFIZER EUGENE-SUCROSE 00:00:00 [place] [facility] VACCINE (BULL TOP) Branch SARS-COV-2 COVID-19 2022-01-18 Completed Unive rsity of PFIZER EUGENE-SUCROSE 00:00:00 [place] [facility] VACCINE (BULL TOP) Branch SARS-COV-2 COVID-19 2022-01-18 Completed Unive rsity of PFIZER EUGENE-SUCROSE 00:00:00 [place] [facility] VACCINE (BULL TOP) Branch SARS-COV-2 COVID-19 2022-01-18 Completed Unive rsity of PFIZER EUGENE-SUCROSE 00:00:00 [place] [facility] VACCINE (BULL TOP) Branch SARS-COV-2 COVID-19 2022-01-18 Completed Unive rsity of PFIZER EUGENE-SUCROSE 00:00:00 [place] [facility] VACCINE (BULL TOP) Branch SARS-COV-2 COVID-19 2022-01-18 Completed Unive rsity of PFIZER EUGENE-SUCROSE 00:00:00 [place] [facility] VACCINE (BULL TOP) Branch SARS-COV-2 COVID-19 2022-01-18 Completed Unive rsity of PFIZER EUGENE-SUCROSE 00:00:00 [place] [facility] VACCINE (BULL TOP) Branch SARS-COV-2 COVID-19 2022-01-18 Completed Unive rsity of PFIZER EUGENE-SUCROSE 00:00:00 [place] [facility] VACCINE (BULL TOP) Branch SARS-COV-2 COVID-19 2022-01-18 Completed Unive rsity of PFIZER EUGENE-SUCROSE 00:00:00 [place] [facility] VACCINE (BULL TOP) Branch SARS-COV-2 COVID-19 2022-01-18 Completed Unive rsity of PFIZER EUGENE-SUCROSE 00:00:00 [place] [facility] VACCINE (BULL TOP) Branch SARS-COV-2 COVID-19 2022-01-18 Completed Unive rsity of PFIZER EUGENE-SUCROSE 00:00:00 [place] [facility] VACCINE (BULL TOP) Branch SARS-COV-2 COVID-19 2022-01-18 Completed Unive rsity of PFIZER EUGENE-SUCROSE 00:00:00 [place] [facility] VACCINE (BULL TOP) Branch SARS-COV-2 COVID-19 2022-01-18 Completed Unive rsity of PFIZER EUGENE-SUCROSE 00:00:00 [place] [facility] VACCINE (BULL TOP) Branch SARS-COV-2 COVID-19 2022-01-18 Completed Unive rsity of PFIZER EUGENE-SUCROSE 00:00:00 [place] [facility] VACCINE (BULL TOP) Branch SARS-COV-2 COVID-19 2022-01-18 Completed Unive rsity of PFIZER EUGENE-SUCROSE 00:00:00 [place] [facility] VACCINE (BULL TOP) Branch SARS-COV-2 COVID-19 2022-01-18 Completed Unive rsity of PFIZER EUGENE-SUCROSE 00:00:00 [place] [facility] VACCINE (BULL TOP) Branch SARS-COV-2 COVID-19 2022-01-18 Completed Unive rsity of PFIZER EUGENE-SUCROSE 00:00:00 [place] [facility] VACCINE (BULL TOP) Branch SARS-COV-2 COVID-19 2022-01-18 Completed Unive rsity of PFIZER EUGENE-SUCROSE 00:00:00 [place] [facility] VACCINE (BULL TOP) Branch SARS-COV-2 COVID-19 2022-01-18 Completed Unive rsity of PFIZER EUGENE-SUCROSE 00:00:00 [place] [facility] VACCINE (BULL TOP) Branch SARS-COV-2 COVID-19 2022-01-18 Completed Unive rsity of PFIZER EUGENE-SUCROSE 00:00:00 [place] [facility] VACCINE (BULL TOP) Branch SARS-COV-2 COVID-19 2022-01-18 Completed Unive rsity of PFIZER EUGENE-SUCROSE 00:00:00 [place] [facility] VACCINE (BULL TOP) Branch SARS-COV-2 COVID-19 2022-01-18 Completed Unive rsity of PFIZER EUGENE-SUCROSE 00:00:00 [place] [facility] VACCINE (BULL TOP) Branch SARS-COV-2 COVID-19 2022-01-18 Completed Unive rsity of PFIZER EUGENE-SUCROSE 00:00:00 [place] [facility] VACCINE (BULL TOP) Branch SARS-COV-2 COVID-19 2021-07-05 Completed Unive rsity of PFIZER VACCINE 00:00:00 [place] [facility] ana Branch SARS-COV-2 COVID-19 2021-07-05 Completed Unive rsity of PFIZER VACCINE 00:00:00 [place] [facility] ana Branch SARS-COV-2 COVID-19 2021-07-05 Completed Unive rsity of PFIZER VACCINE 00:00:00 [place] [facility] ana Branch SARS-COV-2 COVID-19 2021-07-05 Completed Unive rsity of PFIZER VACCINE 00:00:00 [place] [facility] Branch SARS-COV-2 COVID-19 2021-07-05 Completed Unive rsity of PFIZER VACCINE 00:00:00 [place] [facility] Branch SARS-COV-2 COVID-19 2021-07-05 Completed Unive rsity of PFIZER VACCINE 00:00:00 [place] [facility] Branch SARS-COV-2 COVID-19 2021-07-05 Completed Unive rsity of PFIZER VACCINE 00:00:00 [place] [facility] ana Branch SARS-COV-2 COVID-19 2021-07-05 Completed Unive rsity of PFIZER VACCINE 00:00:00 [place] [facility] Branch SARS-COV-2 COVID-19 2021-07-05 Completed Unive rsity of PFIZER VACCINE 00:00:00 [place] [facility] Branch SARS-COV-2 COVID-19 2021-07-05 Completed Unive rsity of PFIZER VACCINE 00:00:00 [facility] Branch SARS-COV-2 COVID-19 2021-07-05 Completed Unive rsity of PFIZER VACCINE 00:00:00 [place] [facility] Branch SARS-COV-2 COVID-19 2021-07-05 Completed Unive rsity of PFIZER VACCINE 00:00:00 [facility] SARS-COV-2 COVID-19 2021-07-05 Completed Unive rsity of PFIZER VACCINE 00:00:00 [facility] SARS-COV-2 COVID-19 2021-07-05 Completed Unive rsity of PFIZER VACCINE 00:00:00 [facility] SARS-COV-2 COVID-19 2021-07-05 Completed Unive rsity of PFIZER VACCINE 00:00:00 [facility] Branch SARS-COV-2 COVID-19 2021-07-05 Completed Unive rsity of PFIZER VACCINE 00:00:00 [facility] SARS-COV-2 COVID-19 2021-07-05 Completed Unive rsity of PFIZER VACCINE 00:00:00 [facility] SARS-COV-2 COVID-19 2021-07-05 Completed Unive rsity of PFIZER VACCINE 00:00:00 [facility] SARS-COV-2 COVID-19 2021-07-05 Completed Unive rsity of PFIZER VACCINE 00:00:00 [facility] SARS-COV-2 COVID-19 2021-07-05 Completed Unive rsity of PFIZER VACCINE 00:00:00 [facility] SARS-COV-2 COVID-19 2021-07-05 Completed Unive rsity of PFIZER VACCINE 00:00:00 [facility] SARS-COV-2 COVID-19 2021-07-05 Completed Unive rsity of PFIZER VACCINE 00:00:00 [facility] SARS-COV-2 COVID-19 2021-07-05 Completed Unive rsity of PFIZER VACCINE 00:00:00 [facility] Influenza Virus 2021-05-04 Completed Universit y of Vaccine Quad IM, 00:00:00 [place] [facility] Preserv and ABX Branch Free 6 MO-64 YRS Influenza Virus 2021-05-04 Completed Universit y of Vaccine Quad IM, 00:00:00 [place] [facility] Preserv and ABX Branch Free 6 MO-64 YRS Influenza Virus 2021-05-04 Completed Universit y of Vaccine Quad IM, 00:00:00 [place] [facility] Preserv and ABX Branch Free 6 MO-64 YRS Influenza Virus 2021-05-04 Completed Universit y of Vaccine Quad IM, 00:00:00 [place] [facility] Preserv and ABX Branch Free 6 MO-64 YRS Influenza Virus 2021-05-04 Completed Universit y of Vaccine Quad IM, 00:00:00 [place] [facility] Preserv and ABX Branch Free 6 MO-64 YRS Influenza Virus 2021-05-04 Completed Universit y of Vaccine Quad IM, 00:00:00 [place] [facility] Preserv and ABX Branch Free 6 MO-64 YRS Influenza Virus 2021-05-04 Completed Universit y of Vaccine Quad IM, 00:00:00 [place] [facility] Preserv and ABX Branch Free 6 MO-64 YRS Influenza Virus 2021-05-04 Completed Universit y of Vaccine Quad IM, 00:00:00 [place] [facility] Preserv and ABX Branch Free 6 MO-64 YRS Influenza Virus 2021-05-04 Completed Universit y of Vaccine Quad IM, 00:00:00 [place] [facility] Preserv and ABX Branch Free 6 MO-64 YRS Influenza Virus 2021-05-04 Completed Universit y of Vaccine Quad IM, 00:00:00 [place] [facility] Preserv and ABX Branch Free 6 MO-64 YRS Influenza Virus 2021-05-04 Completed Universit y of Vaccine Quad IM, 00:00:00 [place] [facility] Preserv and ABX Branch Free 6 MO-64 YRS Influenza Virus 2021-05-04 Completed Universit y of Vaccine Quad IM, 00:00:00 [place] [facility] Preserv and ABX Branch Free 6 MO-64 YRS Influenza Virus 2021-05-04 Completed Universit y of Vaccine Quad IM, 00:00:00 [place] Me [facility] Preserv and ABX Branch Free 6 MO-64 YRS Influenza Virus 2021-05-04 Completed Universit y of Vaccine Quad IM, 00:00:00 [place] [facility] Preserv and ABX Branch Free 6 MO-64 YRS Influenza Virus 2021-05-04 Completed Universit y of Vaccine Quad IM, 00:00:00 [place] [facility] Preserv and ABX Branch Free 6 MO-64 YRS Influenza Virus 2021-05-04 Completed Universit y of Vaccine Quad IM, 00:00:00 [place] Me [facility] Preserv and ABX Branch Free 6 MO-64 YRS Influenza Virus 2021-05-04 Completed Universit y of Vaccine Quad IM, 00:00:00 [place] Me [facility]ical Preserv and ABX Branch Free 6 MO-64 YRS Influenza Virus 2021-05-04 Completed Universit y of Vaccine Quad IM, 00:00:00 [place] Me d[facility] Preserv and ABX Branch Free 6 MO-64 YRS Influenza Virus 2021-05-04 Completed Universit y of Vaccine Quad IM, 00:00:00 [place] Me dical Preserv and ABX Branch Free 6 MO-64 YRS Influenza Virus 2021-05-04 Completed Universit y of Vaccine Quad IM, 00:00:00 [place] Me dical Preserv and ABX Branch Free 6 MO-64 YRS Influenza Virus 2021-05-04 Completed Universit y of Vaccine Quad IM, 00:00:00 [place] Me [facility] Preserv and ABX Branch Free 6 MO-64 YRS Influenza Virus 2021-05-04 Completed Universit y of Vaccine Quad IM, 00:00:00 [place] Me [facility] Preserv and ABX Branch Free 6 MO-64 YRS Influenza Virus 2021-05-04 Completed Universit y of Vaccine Quad IM, 00:00:00 [place] [facility] Preserv and ABX Branch Free 6 MO-64 YRS SARS-COV-2 COVID-19 2020-11-15 Completed Unive rsity of PFIZER VACCINE 00:00:00 [facility] SARS-COV-2 COVID-19 2020-11-15 Completed Unive rsity of PFIZER VACCINE 00:00:00 [facility] SARS-COV-2 COVID-19 2020-11-15 Completed Unive rsity of PFIZER VACCINE 00:00:00 [facility] SARS-COV-2 COVID-19 2020-11-15 Completed Unive rsity of PFIZER VACCINE 00:00:00 [facility] SARS-COV-2 COVID-19 2020-11-15 Completed Unive rsity of PFIZER VACCINE 00:00:00 [facility] SARS-COV-2 COVID-19 2020-11-15 Completed Unive rsity of PFIZER VACCINE 00:00:00 [facility] SARS-COV-2 COVID-19 2020-11-15 Completed Unive rsity of PFIZER VACCINE 00:00:00 [facility] SARS-COV-2 COVID-19 2020-11-15 Completed Unive rsity of PFIZER VACCINE 00:00:00 [facility] SARS-COV-2 COVID-19 2020-11-15 Completed Unive rsity of PFIZER VACCINE 00:00:00 [facility] Branch SARS-COV-2 COVID-19 2020-11-15 Completed Unive rsity of PFIZER VACCINE 00:00:00 [facility] Branch SARS-COV-2 COVID-19 2020-11-15 Completed Unive rsity of PFIZER VACCINE 00:00:00 [facility] Branch SARS-COV-2 COVID-19 2020-11-15 Completed Unive rsity of PFIZER VACCINE 00:00:00 [facility] Branch SARS-COV-2 COVID-19 2020-11-15 Completed Unive rsity of PFIZER VACCINE 00:00:00 [facility] Branch SARS-COV-2 COVID-19 2020-11-15 Completed Unive rsity of PFIZER VACCINE 00:00:00 [facility] Branch SARS-COV-2 COVID-19 2020-11-15 Completed Unive rsity of PFIZER VACCINE 00:00:00 [facility] Branch SARS-COV-2 COVID-19 2020-11-15 Completed Unive rsity of PFIZER VACCINE 00:00:00 [facility] Branch SARS-COV-2 COVID-19 2020-11-15 Completed Unive rsity of PFIZER VACCINE 00:00:00 [facility] Branch SARS-COV-2 COVID-19 2020-11-15 Completed Unive rsity of PFIZER VACCINE 00:00:00 [facility] SARS-COV-2 COVID-19 2020-11-15 Completed Unive rsity of PFIZER VACCINE 00:00:00 [facility] SARS-COV-2 COVID-19 2020-11-15 Completed Unive rsity of PFIZER VACCINE 00:00:00 [facility] Branch SARS-COV-2 COVID-19 2020-11-15 Completed Unive rsity of PFIZER VACCINE 00:00:00 [facility] SARS-COV-2 COVID-19 2020-11-15 Completed Unive rsity of PFIZER VACCINE 00:00:00 [facility] SARS-COV-2 COVID-19 2020-11-15 Completed Unive rsity of PFIZER VACCINE 00:00:00 [facility] SARS-COV-2 COVID-19 2020-10-24 Completed Unive rsity of PFIZER VACCINE 00:00:00 [place] [facility] SARS-COV-2 COVID-19 2020-10-24 Completed Unive rsity of PFIZER VACCINE 00:00:00 [facility] Branch SARS-COV-2 COVID-19 2020-10-24 Completed Unive rsity of PFIZER VACCINE 00:00:00 [facility] Branch SARS-COV-2 COVID-19 2020-10-24 Completed Unive rsity of PFIZER VACCINE 00:00:00 [facility] Branch SARS-COV-2 COVID-19 2020-10-24 Completed Unive rsity of PFIZER VACCINE 00:00:00 [facility] Branch SARS-COV-2 COVID-19 2020-10-24 Completed Unive rsity of PFIZER VACCINE 00:00:00 [facility] Branch SARS-COV-2 COVID-19 2020-10-24 Completed Unive rsity of PFIZER VACCINE 00:00:00 [facility] SARS-COV-2 COVID-19 2020-10-24 Completed Unive rsity of PFIZER VACCINE 00:00:00 [facility] SARS-COV-2 COVID-19 2020-10-24 Completed Unive rsity of PFIZER VACCINE 00:00:00 [facility] SARS-COV-2 COVID-19 2020-10-24 Completed Unive rsity of PFIZER VACCINE 00:00:00 [facility] SARS-COV-2 COVID-19 2020-10-24 Completed Unive rsity of PFIZER VACCINE 00:00:00 [facility] SARS-COV-2 COVID-19 2020-10-24 Completed Unive rsity of PFIZER VACCINE 00:00:00 [facility] SARS-COV-2 COVID-19 2020-10-24 Completed Unive rsity of PFIZER VACCINE 00:00:00 [facility] SARS-COV-2 COVID-19 2020-10-24 Completed Unive rsity of PFIZER VACCINE 00:00:00 [facility] SARS-COV-2 COVID-19 2020-10-24 Completed Unive rsity of PFIZER VACCINE 00:00:00 [facility] SARS-COV-2 COVID-19 2020-10-24 Completed Unive rsity of PFIZER VACCINE 00:00:00 [facility] SARS-COV-2 COVID-19 2020-10-24 Completed Unive rsity of PFIZER VACCINE 00:00:00 [facility] SARS-COV-2 COVID-19 2020-10-24 Completed Unive rsity of PFIZER VACCINE 00:00:00 [facility] SARS-COV-2 COVID-19 2020-10-24 Completed Unive rsity of PFIZER VACCINE 00:00:00 [facility] SARS-COV-2 COVID-19 2020-10-24 Completed Unive rsity of PFIZER VACCINE 00:00:00 [facility] SARS-COV-2 COVID-19 2020-10-24 Completed Unive rsity of PFIZER VACCINE 00:00:00 [facility] SARS-COV-2 COVID-19 2020-10-24 Completed Unive rsity of PFIZER VACCINE 00:00:00 [facility] SARS-COV-2 COVID-19 2020-10-24 Completed Unive rsity of PFIZER VACCINE 00:00:00 [facility] Influenza Virus 2020-04-12 Completed Universit y of Vaccine Quad .5 mL 00:00:00 [place] [facility] IM 6+ MO Branch Influenza Virus 2020-04-12 Completed Universit y of Vaccine Quad .5 mL 00:00:00 [place] [facility] IM 6+ MO Branch Influenza Virus 2020-04-12 Completed Universit y of Vaccine Quad .5 mL 00:00:00 [place] [facility] IM 6+ MO Branch Influenza Virus 2020-04-12 Completed Universit y of Vaccine Quad .5 mL 00:00:00 [place] [facility] IM 6+ MO Branch Influenza Virus 2020-04-12 Completed [facility]it y of Vaccine Quad .5 mL 00:00:00 [place] [facility] IM 6+ MO Branch Influenza Virus 2020-04-12 Completed Universit y of Vaccine Quad .5 mL 00:00:00 [place] [facility] IM 6+ MO Branch Influenza Virus 2020-04-12 Completed Universit y of Vaccine Quad .5 mL 00:00:00 [place] [facility] IM 6+ MO Branch Influenza Virus 2020-04-12 Completed Universit y of Vaccine Quad .5 mL 00:00:00 [place] [facility] IM 6+ MO Branch Influenza Virus 2020-04-12 Completed Universit y of Vaccine Quad .5 mL 00:00:00 [place] [facility] IM 6+ MO Branch Influenza Virus 2020-04-12 Completed [facility]it y of Vaccine Quad .5 mL 00:00:00 [place] [facility] IM 6+ MO Branch Influenza Virus 2020-04-12 Completed [facility]it y of Vaccine Quad .5 mL 00:00:00 [place] [facility] IM 6+ MO Branch Influenza Virus 2020-04-12 Completed Universit y of Vaccine Quad .5 mL 00:00:00 [place] [facility] IM 6+ MO Branch Influenza Virus 2020-04-12 Completed [facility]it y of Vaccine Quad .5 mL 00:00:00 [place] [facility] IM 6+ MO Branch Influenza Virus 2020-04-12 Completed [facility]it y of Vaccine Quad .5 mL 00:00:00 [place] [facility] IM 6+ MO Branch Influenza Virus 2020-04-12 Completed [facility]it y of Vaccine Quad .5 mL 00:00:00 [place] [facility] IM 6+ [place] [facility] Influenza Virus 2020-04-12 Completed [facility]it [facility] Vaccine Quad .5 mL 00:00:00 [facility] [place] [facility] Influenza Virus 2020-04-12 Completed [facility] Vaccine Quad .5 mL 00:00:00 [facility] 6+ [place] [facility] Influenza Virus 2020-04-12 Completed [facility]it [facility] of Vaccine Quad .5 mL 00:00:00 [facility] 6+ [place] [facility] Influenza Virus 2020-04-12 Completed [facility] of Vaccine Quad .5 mL 00:00:00 [facility] 6+ [place] [facility] Influenza Virus 2020-04-12 Completed [facility]it [facility] of Vaccine Quad .5 mL 00:00:00 [facility] 6+ [place] [facility] Influenza Virus 2020-04-12 Completed [facility]it y of Vaccine Quad .5 mL 00:00:00 [facility] 6+ [place] [facility] Influenza Virus 2020-04-12 Completed [facility]it y of Vaccine Quad .5 mL 00:00:00 [facility] 6+ [place] [facility] Influenza Virus 2020-04-12 Completed [facility]it y of Vaccine Quad .5 mL 00:00:00 [facility] 6+ [place] [facility] Influenza Virus 2020-04-12 Completed [facility]it y of Vaccine Quad .5 mL 00:00:00 [facility] 6+ [place] [facility] Influenza Virus 2020-04-12 Completed [facility]it y of Vaccine Quad .5 mL 00:00:00 [facility] IM 6+ [place] [facility] Influenza Virus 2019-05-29 Completed Universit y of Vaccine 00:00:00 [facility] Influenza Virus 2019-05-29 Completed Universit y of Vaccine 00:00:00 [facility] Influenza Virus 2019-05-29 Completed [facility]it y of Vaccine 00:00:00 [facility] Influenza Virus 2019-05-29 Completed Universit y of Vaccine 00:00:00 [facility] Influenza Virus 2019-05-29 Completed Universit y of Vaccine 00:00:00 [facility] Influenza Virus 2019-05-29 Completed Universit y of Vaccine 00:00:00 [facility] Influenza Virus 2019-05-29 Completed Universit y of Vaccine 00:00:00 [facility] Influenza Virus 2019-05-29 Completed Universit y of Vaccine 00:00:00 [facility] Influenza Virus 2019-05-29 Completed Universit y of Vaccine 00:00:00 [facility] Influenza Virus 2019-05-29 Completed Universit y of Vaccine 00:00:00 [facility] Influenza Virus 2019-05-29 Completed Universit y of Vaccine 00:00:00 [facility] Influenza Virus 2019-05-29 Completed Universit y of Vaccine 00:00:00 [facility] Influenza Virus 2019-05-29 Completed [facility]it y of Vaccine 00:00:00 [facility] Influenza Virus 2019-05-29 Completed Universit y of Vaccine 00:00:00 [facility] Influenza Virus 2019-05-29 Completed Universit y of Vaccine 00:00:00 [facility] Influenza Virus 2019-05-29 Completed Universit y of Vaccine 00:00:00 [facility] Influenza Virus 2019-05-29 Completed Universit y of Vaccine 00:00:00 [facility] Influenza Virus 2019-05-29 Completed Universit y of Vaccine 00:00:00 [facility] Influenza Virus 2019-05-29 Completed Universit y of Vaccine 00:00:00 [facility] Influenza Virus 2019-05-29 Completed Universit y of Vaccine 00:00:00 [facility] Influenza Virus 2019-05-29 Completed Universit y of Vaccine 00:00:00 [facility] Influenza Virus 2019-05-29 Completed Universit y of Vaccine 00:00:00 [facility] Influenza Virus 2019-05-29 Completed Universit y of Vaccine 00:00:00 [facility] Influenza Virus 2019-05-29 Completed Universit y of Vaccine 00:00:00 [facility] Influenza Virus 2019-05-29 Completed Universit y of Vaccine 00:00:00 [facility] Influenza Virus 2018-04-16 Completed Universit y of Vaccine Quad IM 3+ 00:00:00 [facility] Influenza Virus 2018-04-16 Completed Universit y of Vaccine [facility] IM 3+ 00:00:00 [facility] Influenza Virus 2018-04-16 Completed Universit y of Vaccine Quad IM 3+ 00:00:00 [facility] Influenza Virus 2018-04-16 Completed [facility]it y of Vaccine Quad IM 3+ 00:00:00 [facility] Influenza Virus 2018-04-16 Completed [facility]it y of Vaccine Quad IM 3+ 00:00:00 [facility] Influenza Virus 2018-04-16 Completed [facility]it y of Vaccine [facility] IM 3+ 00:00:00 [facility] Influenza Virus 2018-04-16 Completed [facility]it y of Vaccine [facility] IM 3+ 00:00:00 [facility] Influenza Virus 2018-04-16 Completed [facility]it y of Vaccine [facility] IM 3+ 00:00:00 [facility] Influenza Virus 2018-04-16 Completed [facility]it y of Vaccine Quad IM 3+ 00:00:00 [facility] Influenza Virus 2018-04-16 Completed [facility]it y of Vaccine [facility] IM 3+ 00:00:00 [facility] Influenza Virus 2018-04-16 Completed [facility]it y of Vaccine Quad IM 3+ 00:00:00 [facility] Influenza Virus 2018-04-16 Completed [facility]it y of Vaccine Quad IM 3+ 00:00:00 [facility] Influenza Virus 2018-04-16 Completed [facility]it y of Vaccine Quad IM 3+ 00:00:00 [facility] Influenza Virus 2018-04-16 Completed [facility]it y of Vaccine Quad IM 3+ 00:00:00 [facility] Influenza Virus 2018-04-16 Completed [facility]it y of Vaccine Quad IM 3+ 00:00:00 [facility] Influenza Virus 2018-04-16 Completed [facility]it y of Vaccine Quad IM 3+ 00:00:00 [facility] Influenza Virus 2018-04-16 Completed [facility]it y of Vaccine Quad IM 3+ 00:00:00 [facility] Influenza Virus 2018-04-16 Completed [facility]it y of Vaccine Quad IM 3+ 00:00:00 [facility] Influenza Virus 2018-04-16 Completed [facility]it y of Vaccine [facility] IM 3+ 00:00:00 [facility] Influenza Virus 2018-04-16 Completed [facility]it y of Vaccine Quad IM 3+ 00:00:00 [facility] Influenza Virus 2018-04-16 Completed [facility]it y of Vaccine Quad IM 3+ 00:00:00 [facility] Influenza Virus 2018-04-16 Completed [facility]it y of Vaccine Quad IM 3+ 00:00:00 [facility] Influenza Virus 2018-04-16 Completed [facility]it y of Vaccine Quad IM 3+ 00:00:00 [facility] Influenza Virus 2018-04-16 Completed [facility]it y of Vaccine Quad IM 3+ 00:00:00 [facility] Influenza Virus 2018-04-16 Completed [facility]it y of Vaccine [facility] IM 3+ 00:00:00 [facility] Influenza Virus 2015-03-11 Completed [facility]it y of Vaccine Quad IM 3+ 00:00:00 [facility] Influenza Virus 2015-03-11 Completed [facility]it y of Vaccine Quad IM 3+ 00:00:00 [facility] Influenza Virus 2015-03-11 Completed [facility]it y of Vaccine Quad IM 3+ 00:00:00 [facility] Influenza Virus 2015-03-11 Completed [facility]it y of Vaccine Quad IM 3+ 00:00:00 [facility] Influenza Virus 2015-03-11 Completed [facility]it y of Vaccine Quad IM 3+ 00:00:00 [facility] Influenza Virus 2015-03-11 Completed [facility]it y of Vaccine Quad IM 3+ 00:00:00 [facility] Influenza Virus 2015-03-11 Completed [facility]it y of Vaccine Quad IM 3+ 00:00:00 [facility] Influenza Virus 2015-03-11 Completed [facility]it y of Vaccine Quad IM 3+ 00:00:00 [facility] Influenza Virus 2015-03-11 Completed [facility]it y of Vaccine Quad IM 3+ 00:00:00 [facility] Influenza Virus 2015-03-11 Completed [facility]it y of Vaccine Quad IM 3+ 00:00:00 [facility] Influenza Virus 2015-03-11 Completed [facility]it y of Vaccine Quad IM 3+ 00:00:00 [facility] Influenza Virus 2015-03-11 Completed [facility]it y of Vaccine Quad IM 3+ 00:00:00 [facility] Influenza Virus 2015-03-11 Completed [facility]it y of Vaccine Quad IM 3+ 00:00:00 [facility] Influenza Virus 2015-03-11 Completed [facility]it y of Vaccine Quad IM 3+ 00:00:00 [facility] Influenza Virus 2015-03-11 Completed [facility]it y of Vaccine Quad IM 3+ 00:00:00 [facility] Influenza Virus 2015-03-11 Completed [facility]it y of Vaccine Quad IM 3+ 00:00:00 [facility] Influenza Virus 2015-03-11 Completed [facility]it y of Vaccine Quad IM 3+ 00:00:00 [facility] Influenza Virus 2015-03-11 Completed [facility]it y of Vaccine Quad IM 3+ 00:00:00 [facility] Influenza Virus 2015-03-11 Completed [facility]it y of Vaccine Quad IM 3+ 00:00:00 [facility] Influenza Virus 2015-03-11 Completed [facility]it y of Vaccine Quad IM 3+ 00:00:00 [facility] Influenza Virus 2015-03-11 Completed [facility]it y of Vaccine Quad IM 3+ 00:00:00 [facility] Influenza Virus 2015-03-11 Completed [facility]it y of Vaccine Quad IM 3+ 00:00:00 [facility] Influenza Virus 2015-03-11 Completed [facility]it y of Vaccine Quad IM 3+ 00:00:00 [facility] Influenza Virus 2015-03-11 Completed [facility]it y of Vaccine Quad IM 3+ 00:00:00 [facility] Influenza Virus 2015-03-11 Completed [facility]it y of Vaccine Quad IM 3+ 00:00:00 [facility] Influenza Virus 2012-04-07 Completed Universit y of Vaccine 00:00:00 [facility] TDAP 2012-04-07 Completed University of 00:00:00 [facility] Pneumococcal 2012-04-07 Completed University o f Polysaccharide, 00:00:00 [facility] PPSV23 (PNEUMOVAX) [place] Influenza Virus 2012-04-07 Completed Universit y of Vaccine 00:00:00 [facility] TDAP 2012-04-07 Completed University of 00:00:00 [facility] Pneumococcal 2012-04-07 Completed University o f Polysaccharide, 00:00:00 [facility] ica PPSV23 (PNEUMOVAX) [place] Influenza Virus 2012-04-07 Completed Universit y of Vaccine 00:00:00 [facility] TDAP 2012-04-07 Completed University of 00:00:00 [facility] Pneumococcal 2012-04-07 Completed University o f Polysaccharide, 00:00:00 [facility] PPSV23 (PNEUMOVAX) [place] Influenza Virus 2012-04-07 Completed Universit y of Vaccine 00:00:00 [facility] TDAP 2012-04-07 Completed University of 00:00:00 [facility] Pneumococcal 2012-04-07 Completed University o f Polysaccharide, 00:00:00 [place] [facility] PPSV23 (PNEUMOVAX) Branch Influenza Virus 2012-04-07 Completed Universit y of Vaccine 00:00:00 [facility] TDAP 2012-04-07 Completed University of 00:00:00 [facility] Pneumococcal 2012-04-07 Completed University o f Polysaccharide, 00:00:00 [place] [facility] PPSV23 (PNEUMOVAX) Branch Influenza Virus 2012-04-07 Completed Universit y of Vaccine 00:00:00 [facility] TDAP 2012-04-07 Completed University of 00:00:00 [facility] Pneumococcal 2012-04-07 Completed University o f Polysaccharide, 00:00:00 [place] [facility] PPSV23 (PNEUMOVAX) Branch Influenza Virus 2012-04-07 Completed Universit y of Vaccine 00:00:00 [facility] TDAP 2012-04-07 Completed University of 00:00:00 [facility] Pneumococcal 2012-04-07 Completed University o f Polysaccharide, 00:00:00 [place] [facility] PPSV23 (PNEUMOVAX) Branch Influenza Virus 2012-04-07 Completed Universit y of Vaccine 00:00:00 [facility] TDAP 2012-04-07 Completed University of 00:00:00 [facility] Pneumococcal 2012-04-07 Completed University o f Polysaccharide, 00:00:00 [place] [facility] PPSV23 (PNEUMOVAX) Branch Influenza Virus 2012-04-07 Completed Universit y of Vaccine 00:00:00 [facility] TDAP 2012-04-07 Completed University of 00:00:00 [facility] Pneumococcal 2012-04-07 Completed University o f Polysaccharide, 00:00:00 [place] [facility] PPSV23 (PNEUMOVAX) Branch Influenza Virus 2012-04-07 Completed Universit y of Vaccine 00:00:00 [facility] TDAP 2012-04-07 Completed University of 00:00:00 [facility] Pneumococcal 2012-04-07 Completed University o f Polysaccharide, 00:00:00 [place] [facility] PPSV23 (PNEUMOVAX) Branch Influenza Virus 2012-04-07 Completed Universit y of Vaccine 00:00:00 [facility] TDAP 2012-04-07 Completed University of 00:00:00 [facility] Pneumococcal 2012-04-07 Completed University o f Polysaccharide, 00:00:00 [place] [facility] PPSV23 (PNEUMOVAX) Branch Influenza Virus 2012-04-07 Completed Universit y of Vaccine 00:00:00 [facility] TDAP 2012-04-07 Completed University of 00:00:00 [facility] Pneumococcal 2012-04-07 Completed University o f Polysaccharide, 00:00:00 [place] [facility] PPSV23 (PNEUMOVAX) Branch Influenza Virus 2012-04-07 Completed Universit y of Vaccine 00:00:00 [facility] TDAP 2012-04-07 Completed University of 00:00:00 [facility] Pneumococcal 2012-04-07 Completed University o f Polysaccharide, 00:00:00 [place] [facility] PPSV23 (PNEUMOVAX) Branch Influenza Virus 2012-04-07 Completed Universit y of Vaccine 00:00:00 [facility] TDAP 2012-04-07 Completed University of 00:00:00 [facility] Pneumococcal 2012-04-07 Completed University o f Polysaccharide, 00:00:00 [place] [facility] PPSV23 (PNEUMOVAX) Branch Influenza Virus 2012-04-07 Completed Universit y of Vaccine 00:00:00 [facility] TDAP 2012-04-07 Completed University of 00:00:00 [facility] Pneumococcal 2012-04-07 Completed University o f Polysaccharide, 00:00:00 [place] [facility] PPSV23 (PNEUMOVAX) Branch Influenza Virus 2012-04-07 Completed Universit y of Vaccine 00:00:00 [facility] TDAP 2012-04-07 Completed University of 00:00:00 [facility] Pneumococcal 2012-04-07 Completed University o f Polysaccharide, 00:00:00 [place] [facility] PPSV23 (PNEUMOVAX) Branch Influenza Virus 2012-04-07 Completed Universit y of Vaccine 00:00:00 [facility] TDAP 2012-04-07 Completed University of 00:00:00 [facility] Pneumococcal 2012-04-07 Completed University o f Polysaccharide, 00:00:00 [place] [facility] PPSV23 (PNEUMOVAX) Branch Influenza Virus 2012-04-07 Completed Universit y of Vaccine 00:00:00 [facility] TDAP 2012-04-07 Completed University of 00:00:00 [facility] Pneumococcal 2012-04-07 Completed University o f Polysaccharide, 00:00:00 [place] [facility] PPSV23 (PNEUMOVAX) Branch Influenza Virus 2012-04-07 Completed Universit y of Vaccine 00:00:00 [facility] TDAP 2012-04-07 Completed University of 00:00:00 [facility] Pneumococcal 2012-04-07 Completed University o f Polysaccharide, 00:00:00 [place] [facility] PPSV23 (PNEUMOVAX) Branch Influenza Virus 2012-04-07 Completed Universit y of Vaccine 00:00:00 [facility] TDAP 2012-04-07 Completed University of 00:00:00 [facility] Pneumococcal 2012-04-07 Completed University o f Polysaccharide, 00:00:00 [place] [facility] PPSV23 (PNEUMOVAX) Branch Influenza Virus 2012-04-07 Completed Universit y of Vaccine 00:00:00 [facility] TDAP 2012-04-07 Completed University of 00:00:00 [facility] Pneumococcal 2012-04-07 Completed University o f Polysaccharide, 00:00:00 [place] [facility] PPSV23 (PNEUMOVAX) Branch Influenza Virus 2012-04-07 Completed Universit y of Vaccine 00:00:00 [facility] TDAP 2012-04-07 Completed University of 00:00:00 [facility] Pneumococcal 2012-04-07 Completed University o f Polysaccharide, 00:00:00 [place] [facility] PPSV23 (PNEUMOVAX) Branch Influenza Virus 2012-04-07 Completed Universit y of Vaccine 00:00:00 [facility] TDAP 2012-04-07 Completed University of 00:00:00 [facility] Pneumococcal 2012-04-07 Completed University o f Polysaccharide, 00:00:00 [place] [facility] PPSV23 (PNEUMOVAX) Branch Influenza Virus 2012-04-07 Completed Universit y of Vaccine 00:00:00 [facility] TDAP 2012-04-07 Completed University of 00:00:00 [facility] Pneumococcal 2012-04-07 Completed University o f Polysaccharide, 00:00:00 [place] [facility] PPSV23 (PNEUMOVAX) Branch Influenza Virus 2012-04-07 Completed Universit y of Vaccine 00:00:00 [facility] TDAP 2012-04-07 Completed University of 00:00:00 [facility] Pneumococcal 2012-04-07 Completed University o f Polysaccharide, 00:00:00 [place] [facility] PPSV23 (PNEUMOVAX) [place] Vital Signs Vital Name Observation Time Observation Value Comments Source Systolic blood 2022-05-14 19:48:00 138 mm[Hg] Univer sity of pressure [facility] Diastolic blood 2022-05-14 19:48:00 79 mm[Hg] Unive rsity of pressure [facility] Heart rate 2022-05-14 19:48:00 67 /min [facility] Body temperature 2022-05-14 19:48:00 36.06 Radha Univ ers[facility] [place] [facility] Respiratory rate 2022-05-14 19:48:00 18 /min Univ ers[facility] [place] [facility] Body height 2022-05-14 19:48:00 160 cm [facility] [place] [facility] Body weight 2022-05-14 19:48:00 73.074 kg [facility] [place] [facility] BMI 2022-05-14 19:48:00 28.54 kg/m2 [facility] [place] [facility] Oxygen saturation in 2022-05-14 19:48:00 98 /min University of Arterial blood by [place] [employer] [employer] ana Pulse oximetry Branch Systolic blood 2022-05-04 14:52:00 114 mm[Hg] Univer sity of pressure [facility] Diastolic blood 2022-05-04 14:52:00 74 mm[Hg] Unive rsity of pressure [facility] Heart rate 2022-05-04 14:52:00 71 /min [facility] [place] [facility] Body temperature 2022-05-04 14:52:00 36.61 Radha [facility] [place] [facility] Respiratory rate 2022-05-04 14:52:00 20 /min Univ ersity of [place] [facility] Body height 2022-05-04 14:52:00 160 cm [facility] Body weight 2022-05-04 14:52:00 73.12 kg [facility] [place] [facility] BMI 2022-05-04 14:52:00 28.56 kg/m2 [facility] [place] [facility] Oxygen saturation in 2022-05-04 14:52:00 98 /min University of Arterial blood by [place] [facility] Pulse oximetry Branch Systolic blood 2022-04-18 14:49:00 125 mm[Hg] Univer sity of pressure [place] [facility] Diastolic blood 2022-04-18 14:49:00 77 mm[Hg] Unive rsity of pressure [facility] Heart rate 2022-04-18 14:49:00 67 /min [facility]i ty [facility] Body temperature 2022-04-18 14:49:00 37 Radha [facility] 2022-04-18 14:49:00 160 cm [facility]i [facility] [place] [facility] [place] Body weight 2022-04-18 14:49:[address] [facility] BMI 2022-04-18 14:49:00 28.87 kg/m2 [facility]i [facility] Oxygen saturation in 2022-04-18 14:49:00 99 /min University of Arterial blood by [facility] Pulse oximetry Branch Systolic blood 2022-03-16 15:58:00 116 mm[Hg] Univer sit of pressure [facility] Diastolic blood 2022-03-16 15:58:00 71 mm[Hg] Unive [facility] Heart rate 2022-03-16 15:58:00 62 /min [facility]i [facility] Body temperature 2022-03-16 15:58:[address] [facility] Respiratory rate 2022-03-16 15:58:00 18 /min [facility] Body height 2022-03-16 15:58:[address] [facility] Body weight 2022-03-16 15:58:00 [facility] BMI 2022-03-16 15:58:00 28.95 kg/m2 Universi [facility] Oxygen saturation in 2022-03-16 15:58:00 98 /min University of Arterial blood by [facility] Pulse oximetry Branch Procedures Procedure Date / Time Performing Clinician Source Performed BI ULTRASOUND BREAST 2022-04-27 15:33:15 Sharmin Patel Un [facility] LIMITED RIGHT [facility] FLU VACC ([id number]), 6 2022-03-16 16:19:06 Vignesh Jaramillo [facility] [place]-66 YRS, .5ML, IM, QUAD Medica l Branch (FLUCELVAX) CONSENT/REFUSAL FOR 2022-03-16 15:39:29 [facility] TREATMENT [place] [facility] MEDICATION CORRESPONDENCE 2022-03-06 05:01:00 Doctor Leodan, [facility] [place] [facility] DME/SUPPLY JUSTIFICATION 2022-02-07 05:01:00 Doctor Leodan [facility] [place] [facility] EXTERNAL PROVIDER RECORDS 2020-10-21 05:01:00 Doctor Alcocer [facility] [place] [facility] [place] Plan of Care Planned Activity Planned Date Details Comments Source Future Scheduled 2022-04-07 DTaP,Tdap,and Td [facility] [place] Test 00:00:00 Vaccines (2 - Td) Medical Br anch [code = DTaP,Tdap,and Td Vaccines (2 - Td)] Future Scheduled 2022-04-07 DTaP,Tdap,and Td [facility] [place] Test 00:00:00 Vaccines (2 - Td) Medical Br anch [code = DTaP,Tdap,and Td Vaccines (2 - Td)] Future Scheduled 2021-10-20 Creatinine measurement [facility] [place] [facility] 00:00:00 (procedure) [code = Medical Branch [id number]] Future Scheduled 2021-09-09 Depression screening [facility] [place] [facility] 00:00:00 (procedure) [code = Medical Branch [id number]] Future Scheduled 2021-09-09 Depression screening [facility] [place] [facility] 00:00:00 (procedure) [code = Medical Branch [id number]] Future Scheduled 2021-06-27 Calculated low density [facility] [place] Test 00:00:00 lipoprotein Medical Branch cholesterol level (procedure) [code = [id number]] Future Scheduled 2021-06-27 Creatinine measurement [facility] [place] [facility] 00:00:00 (procedure) [code = Medical Branch [id number]] Future Scheduled 2021-06-27 Calculated low density [facility] [place] Test 00:00:00 lipoprotein Medical [facility] cholesterol level (procedure) [code = [id number]] Future Scheduled 2021-04-13 Examination of retina [facility] [place] [facility] 00:00:00 (procedure) [code = Medical Branch [id number]] Future Scheduled 2021-04-13 Examination of retina [facility] [place] [facility] 00:00:00 (procedure) [code = Medical Branch [id number]] Future Scheduled 2021-03-22 Screening for [facility] [place] Test 00:00:00 malignant neoplasm of Medica l Branch breast (procedure) [code = [id number]] Future Scheduled 2021-03-22 Screening for [facility] Test 00:00:00 malignant neoplasm of Medica l Branch breast (procedure) [code = [id number]] Future Scheduled 2021-01-05 Microalbumin [facility] Test 00:00:00 measurement, urine, Medical Branch quantitative (procedure) [code = [id number]] Future Scheduled 2021-01-05 Microalbumin [facility] Test 00:00:00 measurement, urine, Medical Branch quantitative (procedure) [code = 986199772] Future Scheduled 2021-01-04 Diabetic foot [facility] Test 00:00:00 examination Medical Branch (regime/therapy) [code = 209172299] Future Scheduled 2021-01-04 Diabetic foot [facility] Test 00:00:00 examination Medical Branch (regime/therapy) [code = 111767915] Future Scheduled 2020-12-25 Hemoglobin [facility] 00:[facility]:00 measurement Medical Branch (procedure) [code = 07853013] Future Scheduled 2020-12-25 Hemoglobin [facility] Test 00:00:00 measurement Medical Branch (procedure) [code = 19066692] Future Scheduled 2020-11-28 Screening for [facility] Test 00:00:00 malignant neoplasm of Medica l Branch colon (procedure) [code = 581716261] Future Scheduled 2020-11-28 Screening for [facility] Test 00:00:00 malignant neoplasm of Medica l Branch colon (procedure) [code = 820828968] Future Scheduled 2020-11-28 Screening for [facility] Test 00:00:00 malignant neoplasm of Medica l Branch colon (procedure) [code = 869563088] Future Scheduled 2020-11-28 Screening for [facility] Test 00:00:00 malignant neoplasm of Medica l Branch colon (procedure) [code = 969560727] Future Scheduled 2020-06-06 Screening for [facility] Test 00:00:00 malignant neoplasm of Medica l Branch cervix (procedure) [code = 461197665] Future Scheduled 2020-06-06 Screening for [facility] Test 00:00:00 malignant neoplasm of Medica l Branch cervix (procedure) [code = 531874881] Future Scheduled 2015-10-05 Screening for [facility] 00:00:00 blood in feces Medical Branc h (procedure) [code = 436882503] Future Scheduled 2015-10-05 Screening for occult [facility] [place] Test 00:00:00 blood in feces Medical Branc h (procedure) [code = 859032107] Future Scheduled 2013-04-07 PNEUMOCOCCAL 0-64 [facility] [place] [facility] 00:00:00 YEARS COMBINED SERIES Medica l Branch (2 of 3 - PCV13) [code = PNEUMOCOCCAL 0-64 YEARS COMBINED SERIES (2 of 3 - PCV13)] Future Scheduled 2013-04-07 PNEUMOCOCCAL 0-64 [facility] [place] Test 00:00:00 YEARS COMBINED SERIES Medica l Branch (2 of 3 - PCV13) [code = PNEUMOCOCCAL 0-64 YEARS COMBINED SERIES (2 of 3 - PCV13)] Future Scheduled 2012-11-06 Screening for [facility] Test 00:00:00 malignant neoplasm of Medica l Branch lung (procedure) [code = 313228852] Future Scheduled 2012-11-06 Screening for [facility] Test 00:00:00 malignant neoplasm of Medica l Branch lung (procedure) [code = 114141303] Future Scheduled 2007-10-02 Stool DNA-based [facility] Test 00:00:00 colorectal cancer Medical Br anch screening (procedure) [code = 631843917312365] Future Scheduled 2007-10-02 Flexible [facility] sigmoidoscopy Medical Branch (procedure) [code = 81533181] Future Scheduled 2007-10-02 Zoster Recom[facility]00 Vaccine (SHINGRIX) (1 Medica l Branch of 2) [code = Zoster Recombinant Vaccine (SHINGRIX) (1 of 2)] Future Scheduled 2007-10-02 Stool DNA-based [facility] Test 00:00:00 colorectal cancer Medical Br anch screening (procedure) [code = 925668930207038] Future Scheduled 2007-10-02 Flexible fiberoptic [facility] Test 00:00:00 sigmoidoscopy Medical Branch (procedure) [code = 62556770] Future Scheduled 2007-10-02 Zoster Recombinant [facility] Test 00:00:00 Vaccine (SHINGRIX) (1 Medica l Branch of 2) [code = Zoster Recombinant Vaccine (SHINGRIX) (1 of 2)] Future Scheduled 1973 SARS-CoV-2 (COVID-19) [facility] [place] [facility] 00:00:00 Vaccine (1) [code = Medical Branch SARS-CoV-2 (COVID-19) Vaccine (1)] Future Scheduled 1973 SARS-CoV-2 (COVID-19) [facility] [place] [facility] 00:00:00 Vaccine (1) [code = Medical Branch SARS-CoV-2 (COVID-19) Vaccine (1)] Encounters Start End Encounter Admission Attending Care Care Encounter Source Date/Time Date/Time Type Type Clinicians Facility Department ID 2021-04-16 Outpatient AMANDA [facility] [id number] Univers 05:32:[address] [facility] 2021-04-14 Emergency [facility] [id number] Univers 00:51:[address] [facility] 2021-04-14 Emergency [facility] [id number] Univers 00:50:[address] [facility] 2022-08-01 2022-08-01 Outpatient R CLINT [facility] [id number] Univers 09:00:00 09:00:00 [facility]-23 2022-07-23 Outpatient R CLINT [facility] [id number] Univers 09:00:00 09:00:00 SENDIL [facility] 2022-06-19 2022-06-19 Outpatient R CLINTON [facility] [id number] Univers 08:45:00 08:45:00 [facility] 2022-05-16 2022-05-16 Telephone Clint [facility] [id number] Univers 00:00:00 00:00:00 Sendil Tres [place] [facility].10 [facility] 4.2.7.2.686 Jael AUSTIN [id number] [place] [address] [facility] 2022-05-14 2022-05-14 Outpatient Aleyda REYES [facility] [id number] Univers 14:00:00 14:38:[address] [facility] 2022-05-14 2022-05-14 Office DIANA Reyes 1.2.840.114 [id number] Univers 14:00:00 14:38:14 Visit Raj Vincent 350.1.13.10 it y of BUILDING 4.2.7.2.686 Kelvin as [phone] [facility] [address] 2022-05-14 2022-05-14 Refill DAINA Gordon 1.2.840.114 [id number] Univers 00:00:00 00:00:00 Lin H 350.1.13.10 it y of BUILDING 4.2.7.2.686 Kelvin as [phone] [address] 2022-05-09 2022-05-09 Outpatient R AMY [facility] [id number] Univers 10:00:00 10:00:00 [facility] 2022-05-07 2022-05-07 Farm Marketer Mary, Chandu Lab Main [facility] 1.2.8 40.114 [id number] Univers 10:00:00 10:15:00 Visit Raj Reyes 350.1.13.10 ity [facility] [place] [phone] Pa dical NAL 353 [facility] 2022-05-07 2022-05-07 Outpatient R AMY [facility] [id number] Univers 10:00:00 10:00:00 [facility] 2022-05-04 2022-05-04 Office Amanda MTDAWN 1.2.840.114 [id number] Univers 09:30:00 09:45:00 Visit [facility] 350.1.13.10 it y of [place] - [phone] [facility] ical [facility] [address] 2022-05-04 2022-05-04 Outpatient R AMANDA [facility] [id number] Univers 09:30:00 09:30:00 [facility] 2022-04-27 2022-04-27 [facility] 1.2.840.114 [id number] Univers 08:45:19 23:59:00 Encounter Sharmin SPECIALTY 350.1.13.10 ity of [facility] 4.2.7.2.686 [facility] s LANCING AT [phone] Pa laura SOLIS 800 [facility] 2022-04-27 2022-04-27 Outpatient R [facility] [id number] Univers 08:44:55 08:44:[address] [facility] 2022-04-27 2022-04-27 [facility]UN[facility] 1.2.840.114 [id number] Univers 08:44:55 08:44:55 Encounter Sharmin SPECIALTY 350.1.13.10 ity [facility] 4.2.7.2.686 [facility] AT [phone] Pa laura SOLIS [address] [place] [address] 2022-04-26 2022-04-26 Outpatient R [facility] [id number] Univers 09:30:00 09:30:00 WAA [facility] 2022-04-25 2022-04-25 Telephone [facility]UN[facility] 1.2.860.222 [id number] Univers 00:00:00 00:00:00 Mary A HEALTH 350.1.13.10 i ty of [place] 4.2.7.2.686 Kelvin as LEA?BLEA [phone] Pa laura PINA [address] [place] [address] MEDICAL OFFICE BUILDING 2022-04-24 2022-04-24 Outpatient R CLINTON [facility] [id number] Univers 13:00:00 13:00:00 [facility] 2022-04-24 2022-04-24 Outpatient R [facility] [id number] Univers 09:45:00 09:45:00 [facility] 2022-04-18 2022-04-18 Outpatient R ARIE [facility] [id number] Univers 10:20:08 23:59:00 MARY [facility] 2022-04-18 2022-04-18 Office A[facility]UN[facility] 1.2.840.114 [id number] Univers 09:00:00 10:14:48 Visit Mary A HEALTH 350.1.13.10 i ty of [place] 4.2.7.2.686 Kelvin as LEA?BLEA [id number] Pa laura PINA [address] MEDICAL OFFICE [facility] 2022-04-17 2022-04-17 Outpatient R AMNADA [facility] [id number] Univers 10:00:00 10:00:[address] [facility] 2022-04-02 2022-04-02 Outpatient R AMANDA [facility] [id number] Univers 09:43:03 23:59:[address] [facility] 2022-04-02 2022-04-02 [facility]UN[facility] 1.2.840.114 [id number] Univers 09:43:03 23:59:00 Encounter Sharmin [place] 350.1.13.10 ity of [facility] 4.2.7.2.[place] [phone] [facility] [address] 2022-03-27 2022-03-27 Telephone RojasUNM [facility] 1.2.840.114 [id number] Univers 00:00:00 00:00:00 [facility] 350.1.13.10 it y of [place] 4.2.7.2.686 Kelvin as LEA?BLEA [phone] Pa laura PINA [address] MEDICAL OFFICE [facility] 2022-03-16 2022-03-16 Outpatient Aleyda JARAMILLO [facility] [id number] Univers 10:30:00 11:29:[address] [facility] 2022-03-16 2022-03-16 Office ClintUNM [facility] 1.2.840.114 [id number] Univers 10:30:00 11:29:55 Visit Vignesh [place] 350.1.13.10 ity of [place] 4.2.7.2.686 [place] [facility] [phone] Pa monroeyeni AGUILAR 059 [facility] 2022-03-16 2022-03-16 Outpatient R CLINT [facility] [id number] Univers 10:30:00 10:30:[address] [facility] 2022-03-16 2022-03-16 [address] [facility] [id number] Univers 10:30:00 10:30:00 SENDIL ity of [facility] 2022-03-16 2022-03-16 Orders Doctor CHANDRAKANT 1.2.840.114 [id number] Univers 00:00:00 00:00:00 Only Unassigned, RU 350.1.13.10 ity of [place] [facility] 4.2.7.2.686 Kelvin as [phone] [address] 2022-03-06 2022-03-06 Orders Doctor CHANDRAKANT 1.2.840.114 [id number] Univers 00:00:00 00:00:00 Only Unassigned, RU 350.1.13.10 ity of [place] [facility] 4.2.7.2.686 Kelvin as [phone] [address] 2022-02-26 2022-02-26 [facility] 1.2.840.114 [id number] Univers 00:00:00 00:00:00 Sendrachel [place] 350.1.13.10 ity of [place].2.7.2.[place] [id number] Pa dichi NAL 059 [facility] 2022-02-26 2022-02-26 [facility] 1.2.840.114 [id number] Univers 00:00:00 00:00:00 Vignesh [place] 350.1.13.10 ity of [place].2.7.2.[place] [id number] Pa dical NAL 059 [facility] 2022-02-07 2022-02-07 Telephone [facility] 1.2.840.114 [id number] Univers 00:00:00 00:00:00 Charly GUNNAR 350.1.13.10 it y of [place] 4.2.7.2.686 Kelvin as LEA?BLEA [phone] Pa dical KNEY [address] MEDICAL [facility] 2022-02-07 2022-02-07 Orders Doctor STALLINGS 1.2.840.114 [id number] Univers 00:00:00 00:00:00 Only Unassigned, RU 350.1.13.10 ity of [place] [facility] 4.2.7.2.686 Kelvin as [phone] [facility] [address] 2022-01-31 2022-01-31 Outpatient R AMY [facility] [id number] Univers 10:00:00 10:32:[address] [facility] 2022-01-31 2022-01-31 Office DIANA Reyes 1.2.840.114 [id number] Univers 10:00:00 10:32:05 Visit Raj Vincent 350.1.13.10 it y of [facility] 4.2.7.2.686 Kelvin as [phone] [facility] [address] 2022-01-31 2022-01-31 Outpatient R AMY [facility] [id number] Univers 10:00:00 10:00:[address] [facility] 2022-01-29 2022-01-29 Outpatient R CLINT [facility] [id number] Univers 10:00:00 10:06:[address] [facility] 2022-01-29 2022-01-29 Office Clint [facility] 1.2.840.114 [id number] Univers 10:00:00 10:06:47 Visit Vignesh [place] 350.1.13.10 ity [facility] [place].2.7.2.[place] [id number] Pa dical [facility] 059 [facility] 2022-01-29 2022-01-29 Outpatient R CLINT [facility] [id number] Univers 10:00:00 10:06:[address] [facility] 2022-01-29 2022-01-29 Outpatient R CLINT [facility] [id number] Univers 10:00:00 10:00:[address] [facility] 2022-01-24 2022-01-24 Farm Marketer Mary, Chandu Lab Main [facility] 1.2.8 40.114 [id number] Univers 10:00:00 10:15:00 Visit Raj Reyes 350.1.13.10 ity [facility] [place].2.7.2.[place] [phone] Pa dical JEFF 353 [facility] 2022-01-24 2022-01-24 Outpatient R AMY [facility] [id number] Univers 10:00:00 10:00:00 RAJ [facility] 2022-01-18 2022-01-18 Imm/Inj Vaccine, Ang Db Cbc Fam [facility] 1. 2.840.114 [id number] Univers 14:20:00 14:30:00 Visit Mary Sargent [facility] 350.1.13.10 ity of [place] 4.2.7.2.686 Kelvin as LEA?BLEA [phone] [facility] 044 [facility] OFFICE [facility] 2022-01-18 2022-01-18 Outpatient R ARIE [facility] [id number] Univers 14:20:00 14:20:00 [facility] 2022-01-17 2022-01-17 Outpatient R ARIE [facility] [id number] Univers 14:00:00 14:00:00 [facility] 2021-12-27 2021-12-27 Outpatient FERGUSON_JO [facility] 877 [place] 12:48:00 12:48:00 HN 0713 da Ep[facility] 2021-12-26 2021-12-26 Jocy SheetsUNM [facility] 1.2.840.114 [id number] Univers 14:20:00 14:20:00 Care [facility] 350.1.13.10 it y of [place] 4.2.7.2.686 Kelvin as LEA?BLEA [phone] [facility] [address] MEDICAL OFFICE [facility] 2021-12-26 2021-12-26 Outpatient R YUE [facility] [id number] Univers 14:20:00 14:16:42 [facility] 2021-12-26 2021-12-26 Telephone CrystalUNM [facility] 1.2.840.114 [id number] Univers 00:00:00 00:00:00 Charly MULTISPEC 350.1.13.10 ity [facility] 4.2.7.2.[place] [id number] [facility] AND MONIQUE [address] DIABETES CLINIC 2021-12-08 2021-12-08 Outpatient R CRYSTAL [facility] [id number] Univers 09:00:00 10:04:[address] [facility] 2021-12-08 2021-12-08 Office CrystalUN[facility] 1.2.628.795 [id number] Univers 09:00:00 10:04:49 Visit Charly [facility] 350.1.13.10 it y of [place] 4.2.7.2.686 Kelvin as LEA?BLEA [id number] [facility] [address] MEDICAL OFFICE [facility] 2021-12-08 2021-12-08 Outpatient R [facility] [id number] Univers 09:00:00 09:00:00 CHARLY [facility] 2021-11-29 2021-11-29 Refill CrystalUN[facility] 1.2.892.542 [id number] Univers 00:00:00 00:00:00 [facility] 350.1.13.10 it y of [place] 4.2.7.2.686 Kelvin as LEA?BLEA [id number] [address] OFFICE [facility] 2021-11-24 2021-11-24 [facility] JaramilloUNM [facility] 1.2.840.114 [id number] Univers 00:00:00 00:00:00 Vignesh Joshua [place] 350.1.13.10 ity [facility] 4.2.7.2.686 [place] [facility] [phone] Pa dical NAL 059 [facility] 2021-10-25 2021-10-25 Outpatient R AMY [facility] [id number] Univers 10:00:00 10:41:42 [facility] 2021-10-25 2021-10-25 Office DIANA Reyes 1.2.840.114 [id number] Univers 10:00:00 10:41:42 Visit Raj [facility] 350.1.13.10 it y of [facility] 4.2.7.2.686 Kelvin as [phone] [facility] [address] 2021-10-18 2021-10-18 Telephone PatelUNM [facility] 1.2.070.979 [id number] Univers 00:00:00 00:00:00 Sharmin HEALTH 350.1.13.10 it y of [place] 4.2.7.2.686 [place] CENTER - [phone] [facility] [address] 2021-10-17 2021-10-17 Telephone PatelUNM [facility] 1.2.769.340 [id number] Univers 00:00:00 00:00:00 Sharmin HEALTH 350.1.13.10 it y of [place] 4.2.7.2.686 [place] CENTER - [phone] [facility] [address] 2021-10-12 2021-10-12 Refill ArieUNM [facility] 1.2.840.114 [id number] Univers 00:00:00 00:00:00 Mary A HEALTH 350.1.13.10 i ty of [facility] 4.2.7.2.686 Kelvin as LEA?BLEA [phone] [facility] [address] MEDICAL OFFICE BUILDING 2021-10-04 2021-10-04 Outpatient R AMY [facility] [id number] Univers 10:30:00 10:30:[address] [facility] 2021-10-04 2021-10-04 Telephone DIANA Reyes 1.2.840.114 [id number] Univers 00:00:00 00:00:00 Raj B H 350.1.13.10 it y of [place] 4.2.7.2.686 Kelvin as [phone] [address] 2021-10-04 2021-10-04 Telephone ClintUNM [facility] 1.2.926.348 [id number] Univers 00:00:00 00:00:00 Vignesh BUCHA[place]N 350.1.13.10 ity of [place] 4.2.7.2.[place] [phone] [facility] [address] [facility] 2021-10-03 2021-10-03 Outpatient R VIKKI [facility] [id number] Univers 10:00:00 10:48:[address] [facility] 2021-10-03 2021-10-03 Office VikkiUNM [facility] 1.2.372.988 [id number] Univers 10:00:00 10:48:49 Visit Lee Annmargaret MEANSPEC 350.1.13.10 ity of [facility] 4.2.7.2.686 [place] [phone] [facility] AND [address] DIABETES CLINIC 2021-10-03 2021-10-03 Outpatient R VIKKI [facility] [id number] Univers 10:00:00 10:00:[address] [facility] 2021-10-03 2021-10-03 Orders Doctor STALLINGS 1.2.840.114 [id number] Univers 00:00:00 00:00:00 Only Unassigned, RU 350.1.13.10 ity of [place] [facility] 4.2.7.2.686 Kelvin as [phone] [place] [address] 2021-10-02 2021-10-02 Outpatient R AMY [facility] [id number] Univers 16:00:00 16:00:00 [facility] 2021-09-20 2021-09-20 Farm Marketer Mary, Chandu Lab Main [facility] 1.2.8 40.114 [id number] Univers 11:15:00 11:30:00 Visit Vignesh Jaramillo 350.1.13. 10 ity [facility] 4.2.7.2.686 [facility] [phone] Pa dical [address] 2021-09-20 2021-09-20 Outpatient R CLINT [facility] [id number] Univers 11:15:00 11:15:00 SENDIL [facility] 2021-09-13 2021-09-13 Outpatient R CLINT [facility] [id number] Univers 11:00:00 11:37:23 SENDRACHEL [facility] 2021-09-13 2021-09-13 Office ClintUN[facility] 1.2.840.114 [id number] Univers 11:00:00 11:37:23 Visit Vignesh BUCHANAN 350.1.13.10 ity of [place] 4.2.7.2.686 [place] [id number] Pa laura AGUILAR 059 [facility] 2021-09-07 2021-09-07 Telephone QuakakeUNM [facility] 1.2.740.645 [id number] Univers 00:00:00 00:00:00 Josue VERGARA 350.1.13.10 ity of [place] 4.2.7.2.686 [place] CENTER AT [phone] Pa laura SOLIS 072 [facility] 2021-09-04 2021-09-04 Refzenaida JaramilloUNM SAND[facility]AL [facility] 1.2.840.114 [id number] Univers 00:00:00 00:00:00 Vignesh BUCHANAN 350.1.13.10 ity of [place] 4.2.7.2.[place] [id number] Pa monroehi JEFF [address] [place] [address] 2021-08-25 2021-08-25 Meek MckinnonUNM S[facility]OVAL [facility] 1.2.840.114 [id number] Univers 00:00:00 00:00:00 Ameya CASTRO 350.1.13.10 ity of [place] 4.2.7.2.686 [place] CENTER [phone] [address] DIABETES CLINIC 2021-08-22 2021-08-22 Outpatient Aleyda CORTÉS [facility] [id number] Univers 13:30:00 13:30:[address] [facility] 2021-07-27 2021-07-27 Outpatient R CLINT [facility] [id number] Univers 10:00:00 10:31:[address] [facility] 2021-07-27 2021-07-27 Office ClintUNM [facility] 1.2.840.114 [id number] Univers 10:00:00 10:31:49 Visit Vignesh BUCHANAN 350.1.13.10 ity of [place] 4.2.7.2.686 [place] [phone] Pa monroehi NAL [address] [place] [address] 2021-07-27 2021-07-27 Outpatient R CLINT [facility] [id number] Univers 10:00:00 10:31:49 SENDIL ity of [facility] 2021-07-27 2021-07-27 Outpatient R CLINT [facility] [id number] Univers 10:00:00 10:31:[address] [facility] 2021-07-21 2021-07-21 Telephone CHANDRAKANT Haynes 1.2.737.507 [id number] Univers 00:00:00 00:00:00 Sri LIU 350.1.13.10 it y of [facility] [id number] Kelvin as [phone] [address] 2021-07-20 2021-07-20 Laboratory Only, Ang Db Test [facility] 1.2.8 [id number] [id number] Univers 11:45:00 12:00:00 Only [place] [facility] [id number] ity of [facility] [id number] Kelvin as LEA?BLEA [phone] Pa laura EY [address] [facility] 2021-07-20 2021-07-20 Outpatient R [facility] [id number] Univers 11:45:00 11:45:[address] [facility] 2021-07-06 2021-07-06 Telephone Fish [facility] [id number] Univers 00:00:00 00:00:00 Tamara MULTISPEC [id number] ity of [facility] [id number] [place] [phone] [facility] AND [place] [address] [facility] 2021-07-05 2021-07-05 Imm/Inj Nurse, Adc Pob Immunization [facility] [id number] Univers 08:40:00 08:57:12 Visit Kian Vazquez 350.1.13 .10 ity of [place] [phone] Pa laura AGUILAR [address] BUILDING 2021-07-05 2021-07-05 Outpatient R GEORGE [facility] [id number] Univers 08:40:00 08:40:[address] [facility] 2021-06-28 2021-06-28 [employer] [facility] UNIVERSIT 1.2.840.114 [id number] Univers 11:45:00 12:00:00 Visit Raj Reyes HEALTH 350.1.13.10 ity of CL[place] [phone] [address] 2021-06-28 2021-06-28 Outpatient R AMY [facility] [id number] Univers 11:45:00 11:45:[address] [facility] 2021-06-28 2021-06-28 Office DIANA Reyes 1.2.840.114 [id number] Univers 10:00:00 11:15:37 Visit Raj Cary 350.1.13.10 it y of BUILDING 4.2.7.2.686 [place] as [phone] [address] 2021-06-28 2021-06-28 Outpatient R AMY [facility] [id number] Univers 10:00:00 10:00:[address] [facility] 2021-06-22 2021-06-22 Outpatient R [facility] [id number] Univers 08:35:00 11:55:00 LILIANE santacruz o f [facility] 2021-06-22 2021-06-22 [facility] 1.2.840.114 [id number] Univers 08:35:00 11:55:00 Encounter Liliane Cota HEALTH 350.1.13.10 it[place] of [place] [phone] [address] ([facility] 2021-06-22 2021-06-22 Surgery [facility] 1.2.840.114 [id number] Univers 09:00:00 09:45:00 Liliane K SPECIALTY 350.1.13.10 ity of CARE [place].2.[place] C[place] AT [phone] Pa laura [address] 2021-06-21 2021-06-21 Outpatient R ARIE [facility] [id number] Univers 11:00:00 11:00:[address] [facility] 2021-06-20 2021-06-20 Laboratory Only, Adc Test [facility] 1.2.840. 114 [id number] Univers 11:45:00 12:00:00 Only Virgie Calle 350.1.13.10 ity of [place] 4.2.7.2.686 [facility] [phone] [facility] [address] 2021-06-20 2021-06-20 Outpatient R LUC [facility] [id number] Univers 11:45:00 11:45:[address] [facility] 2021-06-16 2021-06-16 Office [facility] 1.2.840.114 [id number] Univers 08:30:00 09:05:22 Visit Josue CASTRO 350.1.13.10 ity [facility] 4.2.7.2.686 [facility] [phone] [facility] AND MONIQUE [address] DIABETES CLINIC 2021-06-16 2021-06-16 Outpatient Aleyda LEE [facility] [id number] Univers 08:30:00 09:05:[address] [facility] 2021-06-16 2021-06-16 Outpatient Aleyda LEE [facility] [id number] Univers 08:30:00 09:05:[address] [facility] 2021-06-16 2021-06-16 Outpatient Aleyda LEE [facility] [id number] Univers 08:30:00 08:30:[address] [facility] 2021-05-17 2021-05-17 Orders Doctor STALLINGS 1.2.840.114 [id number] Univers 00:00:00 00:00:00 Only UnassignedRU 350.1.13.10 ity of [place] [facility] 4.2.7.2.686 Kelvin [phone] [facility] [address] 2021-05-10 2021-05-10 Joaquim Sargent [facility] 1.2.822.719 [id number] Univers 00:00:00 00:00:00 Mary Campos HEALTH 350.1.13.10 i ty of [place] 4.2.7.2.686 Kelvin as LEA?BLEA [phone] [address] MEDICAL OFFICE [facility] 2021-05-09 2021-05-09 Outpatient R VIKKI, [facility] [id number] Univers 13:45:00 13:45:00 [facility] 2021-05-09 2021-05-09 Outpatient R VIKKI, [facility] [id number] Univers 13:45:00 13:45:00 [facility] 2021-05-04 2021-05-04 Office [facility] 1.2.840.114 [id number] Univers 09:05:19 09:35:19 Visit Mary Campos HEALTH 350.1.13.10 i ty of [place] 4.2.7.2.686 [place]vin as LEA?BLEA [phone] [address] OFFICE [facility] 2021-05-04 2021-05-04 Outpatient R ARIE, [facility] [id number] Univers 09:30:00 09:30:00 MARY [facility] 2021-05-01 2021-05-01 Outpatient R TOOZOILA, [facility] [id number] Univers 12:00:00 12:00:00 RENEE [facility] 2021-04-17 2021-04-17 Outpatient R VIKKI, [facility] [id number] Univers 10:00:00 10:00:00 [facility] 2021-04-11 2021-04-11 [facility] 1.2.840.114 [id number] Univers 09:05:00 23:59:00 Encounter Sharmin Buchanan 350.1.13.10 ity of [place] [phone] [facility] [address] 2021-04-11 2021-04-11 [facility] 1.2.840.114 [id number] Univers 09:00:00 09:04:00 Encounter Sharmin [place] 350.1.13.10 ity of [place] 4.2.7.2.686 [facility] [phone] [facility] [address] 2021-04-11 2021-04-11 Outpatient R AMANDA [facility] [id number] Univers 00:00:00 00:00:[address] [facility] 2021-04-07 2021-04-07 [facility] 1.2.840.114 [id number] Univers 11:31:22 23:59:00 Encounter Sharmin SPECIALTY 350.1.13.10 ity of [place] CARE 4.2.7.2.686 [facility] AT [phone] Pa laura SOLIS 800 [facility] 2021-04-07 2021-04-07 Office [facility] 1.2.840.114 [id number] Univers 12:49:55 13:19:55 Visit [facility] 350.1.13.10 it y of [place] Cancer 4.2.7.2.686 [facility] - [phone] Med ical MDA [address] 2021-04-07 2021-04-07 Outpatient R [facility] [id number] Univers 11:30:00 11:30:[address] [facility] 2021-04-07 2021-04-07 [facility] 1.2.840.114 [id number] Univers 09:47:09 11:30:00 Encounter Sharmin SPECIALTY 350.1.13.10 ity of [place] CARE 4.2.7.2.686 [facility] AT [phone] Pa laura SOLIS 800 [facility] 2021-03-29 2021-03-29 Office DIANA Valle 1.2.304.320 [id number] Univers 10:38:43 11:18:02 Visit Lisbet H 350.1.13.10 it y of Do BUILDING 4.2.7.2.686 [place]vin [phone] [facility] [address] 2021-03-29 2021-03-29 Outpatient R TWYLA [facility] [id number] Univers 10:40:00 10:40:[address] [facility] 2021-03-16 2021-03-16 Office [facility] 1.2.840.114 [id number] Univers 11:10:53 11:36:56 Visit Vignesh Buchanan 350.1.13.10 ity of [place] [phone] [place] [id number] [facility] 2021-03-16 2021-03-16 [address] [facility] [id number] Univers 11:00:00 11:00:00 SENDIL [facility] 2021-03-08 2021-03-08 Outpatient R TWYLA [facility] [id number] Univers 11:30:00 11:30:00 LISBET [facility] 2021-02-16 2021-02-16 [employer] 2, Adc Lab [facility] 1.2.840.114 [id number] Univers 10:25:51 10:40:51 Visit Vignesh Jaramillo 350.1.13. 10 ity of [place].2.[place] [phone] [facility] 353 [facility] 2021-02-16 2021-02-16 Office [facility] 1.2.840.114 [id number] Univers 09:29:56 09:54:53 Visit Vignesh Buchanan 350.1.13.10 ity of [place].2.[place].2.[place] [phone] Pa dichi nal 059 [facility] 2021-02-16 2021-02-16 Outpatient [address] [facility] [id number] Univers 09:30:00 09:30:00 SENDIL [facility] 2021-02-01 2021-02-01 Outpatient [address] [facility] [id number] Univers 08:00:00 08:00:00 MARY [facility] 2021-02-01 2021-02-01 Orders Doctor STALLINGS 1.2.840.114 [id number] Univers 00:00:00 00:00:00 Only Unassigned, RU 350.1.13.10 ity of [place] HOSPITAL 4.2.7.2.686 Kelvin as [phone] [facility] [address] 2020-12-26 2020-12-26 Telephone DIANA Reyes 1.2.840.114 [id number] Univers 00:00:00 00:00:00 Raj B H 350.1.13.10 it y of BUILDING 4.2.7.2.686 [place] as [phone] [facility] [address] 2020-12-16 2020-12-16 Orders Doctor CHANDRAKANT 1.2.840.114 [id number] Univers 00:00:00 00:00:00 Only Unassigned, RU 350.1.13.10 ity of [place] HOSPITAL 4.2.7.2.686 Kelvin as [phone] [facility] [address] 2020-12-15 2020-12-15 Office [facility] 1.2.233.009 [id number] Univers 09:34:56 11:07:01 Visit Lee Ann CASTRO 350.1.13.10 ity of [place] 4.2.7.2.686 [facility] [phone] [address] DIABETES CLINIC 2020-12-15 2020-12-15 Outpatient R VIKKI [facility] [id number] Univers 09:00:00 09:00:00 LEE ANN ity of [facility] 2020-11-29 2020-11-29 Meek Mckinn[facility]UN[facility] 1.2.840.114 [id number] Univers 00:00:00 00:00:00 Ameya CASTRO 350.1.13.10 ity of IALTY 4.2.7.2.686 [facility] [phone] [address] DIABETES CLINIC 2020-11-18 2020-11-18 Meek Jaramillo [facility] 1.2.840.114 [id number] Univers 00:00:00 00:00:00 Vignesh Buchanan 350.1.13.10 ity of [place].2.[place] [phone] Pa dical nal 059 [facility] 2020-11-17 2020-11-17 [employer] [facility] UNIVERSIT 1.2.840.114 [id number] Univers 13:55:35 14:13:01 Visit Raj Reyes [facility] 350.1.13.10 ity of [facility] 4.2.7.2.686 [place] [phone] [facility] [address] 2020-11-17 2020-11-17 Office DIANA Reyes 1.2.840.114 [id number] Univers 12:30:30 13:49:32 Visit Raj Cary 350.1.13.10 it y of [place] 4.2.7.2.686 [place] as [phone] [facility] [address] 2020-11-17 2020-11-17 Outpatient R AMY [facility] [id number] Univers 13:00:00 13:00:[address] [facility] 2020-11-15 2020-11-15 Outpatient R GEORGE [facility] [id number] Univers 10:00:00 10:00:00 KIAN [facility] 2020-11-11 2020-11-11 Telephone [facility] 1.2.933.916 [id number] Univers 00:00:00 00:00:00 Ameya CASTRO 350.1.13.10 it[facility] 4.2.7.2.[place] [phone] [facility] AND BRANDON [address] DIABETES CLINIC 2020-11-10 2020-11-10 [employer] Chandu Hernandez Lab Main [facility] 1.2.8 40.114 [id number] Univers 11:08:04 11:23:04 Visit Raj Reyeston 350.1.13.10 ity of [place] 4.2.7.2.[place] [phone] Pa dical nal 353 [facility] 2020-11-10 2020-11-10 Out[address] [facility] [id number] Univers 11:00:00 11:00:[address] [facility] 2020-11-08 2020-11-08 Office Tamara Whitten [facility] 1.2.840.114 [id number] Univers 10:17:34 11:17:21 Visit Renee Stroud MULTISPEC 350.1.13.10 ity of [place] 4.2.7.2.686 [place] [phone] [facility] AND MONIQUE [address] DIABETES CLINIC 2020-11-08 2020-11-08 Outpatient R MAXIMUS [facility] [id number] Univers 10:30:00 10:30:00 RENEE ity of [facility] 2020-11-01 2020-11-01 Office NeilkasandraAmeya [facility] 1.2.840.114 [id number] Univers 14:09:38 15:06:08 Visit Gypsy Florez MULTISPEC 350.1 .13.10 ity of IALTY 4.2.7.2.686 [facility] [phone] [facility] AND BRANDON [address] DIABETES CLINIC 2020-11-01 2020-11-01 Outpatient R [facility] [id number] Univers 14:30:00 14:30:00 ity of [facility] 2020-11-01 2020-11-01 Orders Doctor STALLINGS 1.2.840.114 [id number] Univers 00:00:00 00:00:00 Only Unassigned, RU 350.1.13.10 ity of [place] [facility] 4.2.7.2.686 Kelvin [phone] [facility] [address] 2020-10-24 2020-10-24 Outpatient R AMY [facility] [id number] Univers 10:47:11 23:59:00 RAJ ity of [facility] 2020-10-24 2020-10-24 Hospital Amy [facility] 1.2.840.114 [id number] Univers 10:00:00 23:59:00 Encounter Raj Buchanan 350.1.13.10 ity of [place] 4.2.7.2.[address] [facility] [phone] [facility] [address] 2020-10-24 2020-10-24 Outpatient R GEORGE [facility] [id number] Univers 10:30:00 10:30:00 KIAN ity of [facility] 2020-10-21 2020-10-21 Orders Doctor CHANDRAKANT 1.2.840.114 [id number] Univers 00:00:00 00:00:00 Only Unassigned, RU 350.1.13.10 ity of [place] HOSPITAL 4.2.7.2.686 Kelvin as [phone] [facility] [address] 2020-10-20 2020-10-20 [employer] [facility] UNIVERSIT 1.2.840.114 [id number] Univers 14:53:34 15:01:51 Visit Raj Reyes [facility] 350.1.13.10 ity of [facility] 4.2.7.2.686 [place] [phone] [facility] [address] 2020-10-20 2020-10-20 Office DIANA Reyes 1.2.840.114 [id number] Univers 12:52:04 14:49:39 Visit Raj Vincent 350.1.13.10 it y of [facility] 4.2.7.2.686 Kelvin as [phone] [facility] [address] 2020-10-20 2020-10-20 Outpatient R AMY [facility] [id number] Univers 13:00:00 13:00:00 RAJ ity of [facility] 2020-10-20 2020-10-20 Orders Doctor CHANDRAKANT 1.2.840.114 [id number] Univers 00:00:00 00:00:00 Only Unassigned, RU 350.1.13.10 ity of [place] HOSPITAL 4.2.7.2.686 Kelvin as [phone] [facility] [address] 2020-10-17 2020-10-17 Laboratory Only, Adc Test [facility] 1.2.840. 114 [id number] Univers 11:21:24 11:36:24 Only Raj Reyes 350.1.13.10 ity of [place] 4.2.7.2.686 [place] [phone] [facility] [address] 2020-10-17 2020-10-17 Outpatient R [facility] [id number] Univers 11:15:00 11:15:00 ity of [facility] 2020-10-11 2020-10-11 Outpatient R [facility] [id number] Univers 11:00:00 11:00:[address] [facility] 2020-10-03 2020-10-03 Orders Doctor STALLINGS 1.2.840.114 [id number] Univers 00:00:00 00:00:00 Only Unassigned, RU 350.1.13.10 ity of [place] [facility] 4.2.7.2.686 Kelvin [phone] [address] 2020-09-20 2020-09-20 Outpatient R [facility] [id number] Univers 15:40:00 15:40:[address] [facility] 2020-09-16 2020-09-16 Outpatient [facility] [id number] Univers 10:45:00 10:45:00 [facility] 2020-09-12 2020-09-12 Outpatient [facility] [id number] Univers 15:30:00 15:30:00 [facility] 2020-09-09 2020-09-09 [facility] 1.2.840.114 [id number] Univers 15:03:00 18:50:00 Encounter Sharmin Health 350.1.13.10 ity of [place].7.2.686 [place] [phone] [address] ([facility] 2020-09-09 2020-09-09 Outpatient Aleyda [facility] [id number] Univers 10:45:00 10:45:[address] [facility] 2020-09-08 2020-09-08 [facility] 1.2.840.114 [id number] Univers 07:39:00 13:25:00 Encounter Sharmin Health 350.1.13.10 ity of [place] 4.2.7.2.686 [place] [phone] [address] ([facility]) 2020-09-08 2020-09-08 Orders Doctor STALLINGS 1.2.840.114 [id number] Univers 00:00:00 00:00:00 Only Unassigned, RU 350.1.13.10 ity of [place] [facility] 4.2.7.2.686 Kelvin as [phone] [facility] [address] 2020-09-05 2020-09-05 Laboratory Only, Adc Test [facility] 1.2.840. 114 [id number] Univers 11:19:59 11:34:59 Only Sharmin Patel 350.1.13 .10 ity of [place] 4.2.7.2.[place] [phone] [facility] [address] 2020-09-05 2020-09-05 Outpatient R [facility] [id number] Univers 11:15:00 11:15:00 ity of [facility] 2020-08-24 2020-08-24 Outpatient [facility] [id number] Univers 00:00:00 00:00:00 LILLIAN hidalgo [facility] 2020-08-23 2020-08-23 Patient [facility] 1.2.840.114 [id number] Univers 00:00:00 00:00:00 Outreach Kian PRIMARY 350.1.13.10 i ty of [facility] 4.2.7.2.686 [place]AV[place] [phone] Pa dical [address] 2020-08-19 2020-08-19 Office [facility] 1.2.840.114 [id number] Univers 09:53:34 10:39:16 Visit Lillian Buchanan 350.1.13.10 ity of [place] 4.2.7.2.[place] [phone] Pa dical nal [address] [facility] 2020-08-19 2020-08-19 [address] [facility] [id number] Univers 09:45:00 09:45:00 LILLIAN hidalgo [facility] 2020-08-09 2020-08-09 Outpatient R AMANDA [facility] [id number] Univers 13:00:00 13:00:[address] [facility] 2020-08-09 2020-08-09 Outpatient R [facility] [id number] Univers 10:00:00 10:00:00 RENEE [facility] 2020-08-02 2020-08-02 Outpatient Aleyda [facility] [id number] Univers 16:15:00 16:15:00 SHARMIN [facility] 2020-07-26 2020-07-26 Outpatient Aleyda JARAMILLO [facility] [id number] Univers 09:00:00 09:00:00 [facility] 2020-07-26 2020-07-26 Orders Doctor CHANDRAKANT 1.2.840.114 [id number] Univers 00:00:00 00:00:00 Only Unassigned, RU 350.1.13.10 ity of [place] HOSPITAL 4.2.7.2.686 Kelvin as [phone] [facility] [address] 2020-07-21 2020-07-21 Meek MckinnonUN[facility] 1.2.840.114 [id number] Univers 00:00:00 00:00:00 Ameya CASTRO 350.1.13.10 ity of [place] 4.2.7.2.686 [place] CENTER [phone] [facility] AND BRANDON [address] DIABETES CLINIC 2020-07-20 2020-07-20 [facility] 1.2.840.114 [id number] Univers 09:00:00 23:59:00 Encounter Sharmin SPECIALTY 350.1.13.10 ity of [place].2.7.2.686 [place] AT [phone] Pa laura SOLIS 805 [facility] 2020-07-20 2020-07-20 Outpatient Aleyda [facility] [id number] Univers 00:00:00 00:00:[address] [facility] 2020-07-20 2020-07-20 Orders Doctor STALLINGS 1.2.840.114 [id number] Univers 00:00:00 00:00:00 Only Unassigned, RU 350.1.13.10 ity of [place] HOSPITAL 4.2.7.2.686 Kelvin as [phone] [facility] [address] 2020-07-19 2020-07-19 Telephone Ino, [facility] 1.2.660.658 [id number] Univers 00:00:00 00:00:00 Ameya CASTRO 350.1.13.10 ity of [place].2.7.2.686 [place] [phone] [facility] AND [address] DIABETES CLINIC 2020-07-18 2020-07-18 Meek Jar[facility]UN[facility] 1.2.840.114 [id number] Univers 00:00:00 00:00:00 Vignesh Buchanan 350.1.13.10 ity of [place].2.[place] [phone] Pa dichi nal 9 [facility] 2020-07-15 2020-07-15 Laboratory Only, [facility] Test [facility] 1.2.840. 114 [id number] Univers 15:06:07 15:21:07 Only Sharmin Patel 350.1.13 .10 ity of [place] 4.2.7.2.686 [place] [phone] [facility] [address] 2020-07-15 2020-07-15 Outpatient R AMANDA [facility] [id number] Univers 15:00:00 15:00:[address] [facility] 2020-07-13 2020-07-13 [employer], [facility] Vascular Room 1 - [facility] 1.2.840.114 [id number] Univers 10:52:13 11:52:13 Visit Theodore Le 350.1.13.10 ity of [place].7.2.[place] [phone] Pa dical nal 9 [facility] 2020-07-13 2020-07-13 Nurse Visit, [facility] Nurse [facility] 1.2.840.1 14 [id number] Univers 08:23:24 08:58:10 Visit Theodore Le 350.1.13.10 ity of [place] 4.2.7.2.[place] [phone] Pa dical nal 9 [facility] 2020-07-13 2020-07-13 Outpatient R HARMEET [facility] [id number] Univers 08:30:00 08:30:00 THEODORE ity o f [facility] 2020-07-12 2020-07-12 Telephone Clint [facility] 1.2.283.506 [id number] Univers 00:00:00 00:00:00 Sendrachel Buchanan 350.1.13.10 ity of [place] 4.2.7.2.686 [place] [facility] [phone] Pa dical nal [address] Building 2020-07-06 2020-07-06 [facility] Mando Thompson [facility] 1.2.840.114 [id number] Univers 07:37:25 23:59:00 Encounter Provider, [facility] 350.1. 13.10 ity of 2, [facility] Cardiac Proc Room Clear 4.2.7.2 .686 [facility] [phone] [facility] [address] ([facility]) 2020-07-06 2020-07-06 Outpatient R [facility] [id number] Univers 09:00:00 09:00:00 ity of [facility] 2020-07-05 2020-07-05 [facility] [id number] Univers 10:30:00 10:30:00 [facility] 2020-07-05 2020-07-05 Outpatient Aleyda PATEL [facility] [id number] Univers 09:45:00 09:45:00 [facility] 2020-07-05 2020-07-05 Laboratory Only, Adc Test [facility] 1.2.840. [id number] Univers 09:24:37 09:39:37 Only Sharmin Patel 350.1.13 .10 [place] [phone] [facility] [address] 2020-07-05 2020-07-05 Orders Doctor CHANDRAKANT 1.2.840.114 [id number] Univers 00:00:00 00:00:00 Only Unassigned, RU 350.1.13.10 ity of [place] [facility] 4.2.7.2.686 Kelvin as [phone] [facility] [address] 2020-07-01 2020-07-01 Outpatient R AISSATOUADOLFO [facility] [id number] Univers 13:00:00 13:00:[address] [facility] 2020-06-29 2020-06-29 Outpatient R CLINT [facility] [id number] Univers 10:30:00 10:30:00 SENDIL [facility] 2020-06-28 2020-06-28 Telephone CHANDRAKANT Rico 1.2.100.704 [id number] Univers 00:00:00 00:00:00 Jeana LIU 350.1.13.10 ity of [facility] 4.2.7.2.686 Kelvin as [phone] [facility] [address] 2020-06-27 2020-06-27 Laboratory Only, Adc Test [facility] 1.2.840. 114 [id number] Univers 14:34:45 14:49:45 Only Ameya Stewart 350.1.13.10 ity of [place] 4.2.7.2.686 [facility] [phone] [facility] [address] 2020-06-27 2020-06-27 Farm [employer]eter 1, Adc Lab [facility] 1.2.840.114 [id number] Univers 14:32:10 14:47:10 Visit Vignesh Jaramillo 350.1.13. 10 ity of [place] 4.2.7.2.686 [facility] [phone] [facility] [address] 2020-06-27 2020-06-27 Outpatient R CLINT [facility] [id number] Univers 14:30:00 14:30:00 [facility] 2020-06-27 2020-06-27 Outpatient R AMANDA [facility] [id number] Univers 10:00:00 10:00:00 SHARMIN [facility] 2020-06-27 2020-06-27 Orders Doctor STALL[place] 1.2.840.114 [id number] Univers 00:00:00 00:00:00 Only Unassigned, RU 350.1.13.10 ity of [place] [facility] 4.2.7.2.686 Kelvin as [phone] [address] 2020-06-21 2020-06-21 Telephone [facility] 1.2.489.662 [id number] Univers 00:00:00 00:00:00 Sendrachel GregoriaDavid Mcnally 350.1.13.10 ity of [place] [phone] [facility] [address] ([facility]) 2020-06-20 2020-06-20 Office [facility] 1.2.840.114 [id number] Univers 14:12:30 15:14:04 Visit Vignesh Buchanan 350.1.13.10 ity of [place].7.[place] [phone] Pa dical formerly [facility] [address] 2020-06-20 2020-06-20 Outpatient R CLINT [facility] [id number] Univers 14:00:00 14:00:00 SENDIL ity of [facility] 2020-06-15 2020-06-15 [facility] 1.2.840.114 [id number] Univers 09:06:23 23:59:00 Encounter Vignesh Buchanan 350.1.13.10 ity of [place] 4.2.7.2.[place] [phone] [address] 2020-06-15 2020-06-15 [facility] 1.2.840.114 [id number] Univers 09:06:08 23:59:00 Encounter Vignesh Buchanan 350.1.13.10 ity of [place] 4.[place].7.2.[place] [phone] [address] 2020-06-15 2020-06-15 [facility] 1.2.840.114 [id number] Univers 09:05:53 09:05:53 Encounter Vignesh Buchanan 350.1.13.10 ity of [place] 4.2.7.2.[place] [phone] [address] 2020-06-15 2020-06-15 [facility] [id number] Univers 09:05:38 09:05:38 SENDIL ity of [facility] 2020-06-15 2020-06-15 Hospital [facility] 1.2.840.114 [id number] Univers 09:05:15 09:05:15 Encounter Sendil Tres Buchanan 350.1.13.10 ity of [place] 4.2.7.2.[place] [phone] [facility] [address] [place] [address] 2020-06-15 2020-06-15 Outpatient R [facility] [id number] Univers 09:05:15 09:05:[address] [facility] 2020-06-15 2020-06-15 Telephone [facility] 1.2.584.083 [id number] Univers 00:00:00 00:00:00 Johnil Tres Buchanan 350.1.13.10 ity of [place].2.7.2.[place] [phone] Pa dical nal 9 [facility] 2020-06-07 2020-06-07 Outpatient R [facility] [id number] Univers 11:00:00 11:00:00 ity of [facility] 2020-06-02 2020-06-02 Laboratory Pc, Adc Echo Room 1 - [facility] 1 .2.840.114 [id number] Univers 11:18:35 12:06:41 Only Theodore Le 350.1.13.10 ity of [place] 4.2.7.2.686 [place] [facility] [phone] Pa dical nal 9 [facility] 2020-06-02 2020-06-02 Outpatient R [facility] [id number] Univers 11:00:00 11:00:00 ity of [facility] 2020-05-30 2020-05-30 Office [facility] 1.2.840.114 [id number] Univers 10:37:26 11:21:33 Visit Sendrachel Buchanan 350.1.13.10 ity of [place] 4.2.7.2.[place] [phone] Pa dical nal 059 [facility] 2020-05-30 2020-05-30 Outpatient R JARAMILLO, [facility] [id number] Univers 10:30:00 10:30:[address] [facility] 2020-05-24 2020-05-24 Outpatient R AMANDA [facility] [id number] Univers 13:30:00 13:30:[address] [facility] 2020-05-17 2020-05-17 [facility] 1.2.840.114 [id number] Univers 00:00:00 00:00:00 Ameya MULTISPEC 350.1.13.10 ity of [place].2.7.2.686 [place] [phone] [facility] AND MONIQUE [address] DIABETES CLINIC 2020-05-16 2020-05-16 [facility] 1.2.840.114 [id number] Univers 12:35:09 23:59:00 Encounter Oz SPECIALTY 350.1.13.10 ity of [place]2.[place].2.[place] C[place] AT [phone] [address] 2020-05-16 2020-05-16 [facility] 1.2.840.114 [id number] Univers 12:30:00 12:34:00 Encounter Oz SPECIALTY 350.1.13.10 ity of [place]2.[place].2.[place] AT [phone] [address] 2020-05-16 2020-05-16 Outpatient [facility] [id number] Univers 00:00:00 00:00:[address] [facility] 2020-05-11 2020-05-11 [facility] 1.2.840.114 [id number] Univers 08:00:00 23:59:00 Encounter Oz Y HEALTH 350.1.13.10 ity of CLINICS 4.2.7.2.[place] [phone] [facility] [address] 2020-05-11 2020-05-11 Outpatient R [facility] [id number] Univers 00:00:00 00:00:[address] [facility] 2020-05-06 2020-05-06 Adenike Almanzar 1.2.688.405 [id number] Univers 00:00:00 00:00:00 Ameya Liu 350.1.13.10 it y of Hospital 4.2.7.2.686 [place] [phone] [address] 2020-05-04 2020-05-04 Telephone Adenike Mckinnon 1.2.644.207 [id number] Univers 00:00:00 00:00:00 Ameya Liu 350.1.13.10 it y of [facility] 4.2.7.2.686 [place] as [phone] [address] 2020-05-03 2020-05-03 [facility] 1.2.840.114 [id number] Univers 11:28:38 23:59:00 Encounter Oz [place] 350.1.13.10 ity of [place] 4.2.7.2.686 [facility] [phone] [address] 2020-05-03 2020-05-03 [facility] 1.2.840.114 [id number] Univers 11:28:24 23:59:00 Encounter Oz [place] 350.1.13.10 ity of [place] 4.2.7.2.686 [facility] [phone] [address] 2020-05-03 2020-05-03 [facility] 1.2.840.114 [id number] Univers 11:27:26 11:27:26 Encounter Oz [place] 350.1.13.10 ity of [place] 4.2.7.2.686 [facility] [phone] [address] 2020-05-03 2020-05-03 Outpatient R [facility] [id number] Univers 00:00:00 00:00:00 OZ ity of [facility] 2020-04-20 2020-04-20 Telephone [facility] 1.2.310.457 [id number] Univers 00:00:00 00:00:00 Ameya CASTRO 350.1.13.10 ity of IALTY 4.2.7.2.686 [facility] [phone] [address] DIABETES CLINIC 2020-04-20 2020-04-[address] [facility] 1.2.379.018 [id number] Univers 00:00:00 00:00:00 Ameya MULTISPEC 350.1.13.10 ity of IALTY 4.2.7.2.686 [facility] [phone] [facility] [address] DIABETES CLINIC 2020-04-19 2020-04-19 [facility] 1.2.840.114 [id number] Univers 10:48:57 23:59:00 Encounter Oz [place] 350.1.13.10 ity of [place] 4.2.7.2.686 [facility] [phone] [facility] [address] 2020-04-19 2020-04-19 [facility] 1.2.840.114 [id number] Univers 10:30:00 10:47:00 Encounter Oz [place] 350.1.13.10 ity of [place] 4.2.7.2.[address] [place] [address] [phone] [facility] [address] 2020-04-19 2020-04-19 Outpatient R [facility] [id number] Univers 00:00:00 00:00:[address] [facility] 2020-04-19 2020-04-19 Telephone [facility] 1.2.703.726 [id number] Univers 00:00:00 00:00:00 Oz MULTISPEC 350.1.13.10 ity of IALTY 4.2.7.2.[address] [place] [address] [phone] [facility] [address] DIABETES [facility] 2020-04-13 2020-04-13 Office [facility] 1.2.310.532 [id number] Univers 08:58:15 10:36:16 Visit Lee Ann MULTISPEC 350.1.13.10 ity of IALTY 4.2.7.2.[address] [place] [address] [phone] [facility] [address] DIABETES [facility] 2020-04-13 2020-04-13 Outpatient R [facility] [id number] Univers 09:45:00 09:45:00 LEE ANN ity of [facility] 2020-04-13 2020-04-13 Orders Doctor CHANDRAKANT 1.2.840.114 [id number] Univers 00:00:00 00:00:00 Only Unassigned, RU 350.1.13.10 ity of [place] [facility] 4.2.7.2.686 [facility] [phone] [facility] [address] 2020-04-12 2020-04-12 [employer] Vtc-Lab [facility] 1.2.840.114 [id number] Univers 15:33:36 15:48:36 Visit Oz Romano MULTISPEC 350.1.13.10 ity of [place] 4.2.7.2.686 [facility] [phone] [facility] MONIQUE [address] DIABETES CLINIC 2020-04-12 2020-04-12 Office Ameya Mckinnon [facility] 1.2.840.114 [id number] Univers 14:25:57 15:31:44 Visit Gypsy Florez MULTISPEC 350.1 .13.10 ity of [place] Oz GAYE 4.2.7.[address] [place] [address] [phone] [facility] [address] DIABETES CLINIC 2020-04-12 2020-04-12 Outpatient R [facility] [id number] Univers 14:30:00 14:30:00 ity of [facility] 2020-04-06 2020-04-06 Outpatient R [facility] [id number] Univers 10:00:00 10:00:00 LEE ANN ity of [facility] 2020-04-04 2020-04-04 RefAdolfo Montiel [facility] 1.2.840.114 [id number] Univers 00:00:00 00:00:00 T HEALTH 350.1.13.10 it y of [place] 4.2.7.2.686 [facility] [phone] [facility] Primary & [address] Specialty Care 2020-03-22 2020-03-22 Hospital [facility] 1.2.840.114 [id number] Univers 12:00:00 23:59:00 Encounter Oz Buchanan 350.1.13.10 ity of [place] 4.2.7.2.686 [facility] [phone] [facility] [address] 2020-03-22 2020-03-22 Outpatient R JUAN ANTONIO [facility] [id number] Univers 00:00:00 00:00:00 [facility] 2020-03-22 2020-03-22 Telephone Ino [facility] 1.2.983.464 [id number] Univers 00:00:00 00:00:00 Ameya MULTISPEC 350.1.13.10 ity of [place].2.686 [place] [phone] [address] DIABETES CLINIC 2020-03-03 2020-03-03 Meek Stockton [facility] 1.2.840.114 [id number] Univers 00:00:00 00:00:00 Richard Azevedo MULTISPEC 350.1.13.10 ity of [place].2.7.2.686 [place] C[place] [phone] [address] DIABETES CLINIC 2020-02-03 2020-02-03 Outpatient R [facility] [id number] Univers 00:00:00 00:00:00 [facility] 2020-01-18 2020-01-18 Patient Doctor [facility] 1.2.840.114 [id number] Univers 00:00:00 00:00:00 Secure Msg Unassigned, MULTISPEC 350.1.13.10 ity of [place] 4.2.7.2.[place] [phone] [address] DIABETES CLINIC 2020-01-06 2020-01-06 [employer] Mary, Chandu Lab Main [facility] 1.2.8 40.114 [id number] Univers 08:56:16 09:21:04 Visit Oz Romano 350.1.13.10 ity of [place].2.7.2.[place] Profess[place] [phone] Pa dical [address] 2020-01-06 2020-01-06 Outpatient R [facility] [id number] Univers 08:30:00 08:30:00 ity of [facility] 2020-01-05 2020-01-05 Office Ameya Mckinnon [facility] 1.2.840.114 [id number] Univers 15:06:53 16:19:36 Visit Florez, Sarah La MEANSPEC 350.1 .13.10 ity of [place] 4.2.7.2.686 [facility] [phone] [facility] [address] DIABETES CLINIC 2020-01-05 2020-01-05 [facility] [id number] Univers 15:10:00 15:10:00 GYPSY ity of [facility] 2019-12-31 2019-12-31 [facility] 1.2.139.283 [id number] Univers 09:14:21 10:43:08 Visit Lee Ann MIGUELANGELPEC 350.1.13.10 ity of [place]2.7.2.686 [place] [phone] [address] DIABETES CLINIC 2019-12-31 2019-12-31 Outpatient R [facility] [id number] Univers 09:30:00 09:30:00 LEE ANN ity of [facility] 2019-12-31 2019-12-31 Orders Doctor CHANDRAKANT 1.2.840.114 [id number] Univers 00:00:00 00:00:00 Only Unassigned, RU 350.1.13.10 ity of [place] [facility] 4.2.7.2.686 Kelvin as [phone] [place] [address] [address] 2019-12-10 2019-12-10 Office Jesse [facility] 1.2.840.114 [id number] Univers 09:49:23 10:09:23 Visit Mily Buchanan 350.1.13.10 i ty [facility] 4.2.7.2.686 [place] [phone] Pa dical nal 085 [facility] 2019-12-10 2019-12-10 Outpatient R MILY OROZCO [facility] [id number] Univers 09:40:00 09:40:00 MILY OROZCO i ty of [facility] 2019-12-09 2019-12-09 Refill Adolfo Reyez [facility] 1.2.840.114 [id number] Univers 00:00:00 00:00:00 T HEALTH 350.1.13.10 it y of [place] 4.2.7.2.686 [place] [facility] [phone] [facility] Primary & [address] Specialty Care 2019-12-08 2019-12-08 Telephone Florez, PANDA 1.2.840.114 [id number] Univers 00:00:00 00:00:00 Lee Ann Y 350.1.13.10 it y of [facility] 4.2.7.2.686 Kelvin as BANK [phone] [facility] BLDG. [address] 2019-12-02 2019-12-02 Office [facility] 1.2.752.943 [id number] Univers 09:27:21 10:24:58 Visit Lee Ann MULTISPEC 350.1.13.10 ity of [place] 4.2.7.2.686 [place] [phone] [facility] AND BRANDON [address] DIABETES CLINIC 2019-12-02 2019-12-02 Outpatient R VIKKI [facility] [id number] Univers 09:30:00 09:30:00 LEE ANN ity of [facility] 2019-12-02 2019-12-02 Orders Doctor STALLINGS 1.2.840.114 [id number] Univers 00:00:00 00:00:00 Only Unassigned, RU 350.1.13.10 ity of [place] [facility] 4.2.7.2.686 Kelvin as [phone] [facility] [address] 2019-11-27 2019-11-27 Emergency TRAUMA 1.2.359.407 [id number] Univers 19:10:21 21:08:00 CENTER 350.1.13.10 it y of [place]2.7.2.686 [place] [phone] [facility] [address] 2019-11-27 2019-11-27 Emergency [facility] 1.2.840.114 [id number] Univers 16:09:14 19:06:00 Pauline Buchanan 350.1.13.10 ity of [place] 4.2.7.2.686 [place] [phone] [facility] [address] 2019-11-27 2019-11-27 Orders Doctor STALLINGS 1.2.840.114 [id number] Univers 00:00:00 00:00:00 Only Unassigned, RU 350.1.13.10 ity of [place] HOSPITAL 4.2.7.2.686 Kelvin as [phone] [facility] [address] 2019-11-27 2019-11-27 Refill Adolfo Reyez DHEERAJ 1.2.840.114 [id number] Univers 00:00:00 00:00:00 T Y HEALTH 350.1.13.10 i ty of CLINICS 4.2.7.2.686 [place] [phone] [facility] [address] 2019-10-27 2019-10-27 Outpatient R [facility] [id number] Univers 15:30:00 15:30:00 ity of [facility] 2019-10-07 2019-10-07 Telephone Raman [place] [facility] 1.2.840.114 [id number] Univers 00:00:00 00:00:00 Comfort MULTISPEC 350.1.13.10 ity of [facility] 4.2.7.2.686 [facility] [phone] [facility] [place] [address] [address] DIABETES CLINIC 2019-09-25 2019-09-25 Refill Rasheed Reyezy [facility] 1.2.840.114 [id number] Univers 00:00:00 00:00:00 T HEALTH 350.1.13.10 it y of [place] 4.2.7.2.686 [facility] [phone] [facility] Primary & [facility] Branch Specialty Care 2019-07-31 2019-07-31 Office ReyezRasheedy [facility] 1.2.840.114 [id number] Univers 09:50:37 10:27:24 Visit T HEALTH 350.1.13.10 it y of [place] 4.2.7.2.686 [facility] [phone] [facility] Primary & 9 Branch Specialty Care 2019-07-03 2019-07-03 Refzenaida Reyez Adolfo [place] 1.2.840.114 [id number] Univers 00:00:00 00:00:00 T RU 350.1.13.10 it y of HOSPITAL 4.2.7.2.686 [place] [phone] [facility] [address] 2019-02-11 2019-02-11 Outpatient R KENNA [facility] [id number] Univers 15:00:00 15:57:42 HANG ity of [facility] 2019-02-11 2019-02-11 Telephone [facility] 1.2.457.339 [id number] Univers 00:00:00 00:00:00 Kostas MULTISPEC 350.1.13.10 ity of [place].2.686 [place] [phone] [address] DIABETES CLINIC 2019-02-11 2019-02-11 Telephone [facility] 1.2.780.499 [id number] Univers 00:00:00 00:00:00 Kostas MULTISPEC 350.1.13.10 ity of [place].2.686 [place] C[place] [phone] [address] DIABETES CLINIC 2019-02-06 2019-02-06 Telephone [facility] 1.2.601.105 [id number] Univers 00:00:00 00:00:00 Kostas MULTISPEC 350.1.13.10 ity of [place].7.2.686 [place] [id number] [address] DIABETES CLINIC 2019-02-03 2019-02-03 [facility] 1.2.592.484 [id number] Univers 00:00:00 00:00:00 Kostas PRIMARY 350.1.13.10 it y of [place] CARE 4.2.7.2.686 [place] [facility] [phone] [address] 2019-02-02 2019-02-02 [employer] Vtc-Lab [facility] 1.2.840.114 [id number] Univers 15:15:22 15:25:22 Visit Arthur Chavez MULTISPEC 350.1.1 3.10 ity of [place] 4.2.7.2.686 [place] C[place] [phone] [address] DIABETES CLINIC 2019-02-02 2019-02-02 Office [facility] 1. 2.840.114 [id number] [facility] 13:43:05 15:13:24 Visit Gypsy Florez MULTISPEC 350.1 .13.10 ity of [facility] 4.2.7.2.686 [facility] [phone] [facility] AND [place] [address] [address] DIABETES CLINIC 2019-02-02 2019-02-02 Refill Adolfo Reyez [facility] 1.2.840.114 [id number] Univers 00:00:00 00:00:00 T HEALTH 350.1.13.10 it y of [place] 4.2.7.[address] [place] [address] [phone] [facility] Primary & [facility] Branch Specialty Care 2019-01-26 2019-01-26 Refill Adolfo Reyez [facility] 1.2.840.114 [id number] Univers 00:00:00 00:00:00 T HEALTH 350.1.13.10 it y of [place] 4.2.7.2.[address] [place] [address] [phone] [facility] Primary & [facility] Branch Specialty Care 2019-01-23 2019-01-23 [employer] Lab, [facility] 1.2.840.11 [id number] Univers 10:12:31 10:27:31 Visit AissatouAdolfo HEALTH 350.1.13.10 ity of [place] 4.2.7.2.[address] [place] [address] [phone] [facility] Primary & [facility] Branch Specialty Care 2019-01-23 2019-01-23 Office Adolfo Reyez [facility] 1.2.840.114 [id number] Univers 09:44:56 10:10:49 Visit T HEALTH 350.1.13.10 it y of [place] 4.2.7.2.[address] [place] [address] [phone] [facility] Primary & [facility] Branch Specialty Care 2016-07-10 2016-07-10 Emergency X ILAN SOLORIO ERT [id number] Univers 16:16:00 16:54:[address] [facility] Results This patient has no known results.
--- NOTE | 2022-05-18 14:24 | RAD REPORT ---
EXAM DESCRIPTION: RAD - C Spine Ap/Lat - 05/18/2022 2:13 pm CLINICAL HISTORY: fall Trauma, neck pain COMPARISON: No comparisons FINDINGS: Cervical bodies are normal in height and alignment.No fracture or acute bony process seen. Disc thinning with posterior osteophyte mid cervical levels.Odontoid is normal and the lateral masses are symmetric. No prevertebral soft tissue thickening or other suspicious soft tissue finding. IMPRESSION: No acute abnormality is seen. Moderate midcervical spondylosis.
--- NOTE | 2022-05-18 14:25 | RAD REPORT ---
EXAM DESCRIPTION: RAD - Lumbar Spine 3 Views - 05/18/2022 2:13 pm CLINICAL HISTORY: PAIN Radiculopathy COMPARISON: No comparisons FINDINGS: Vertebral body heights appear maintained. No compression fracture noted. Disc spaces are m aintained. Mild degenerative anterolisthesis L4 on 5. IMPRESSION: Mild spondylosis L4-5. No acute abnormality visualized.
--- NOTE | 2022-05-18 14:26 | RAD REPORT ---
EXAM DESCRIPTION: RAD - Hip Left 2 View - 05/18/2022 2:13 pm CLINICAL HISTORY: PAIN COMPARISON: No comparisons FINDINGS: Mild arthritic changes. No fracture, dislocation or AVN.
--- NOTE | 2022-05-18 14:34 | EDPHYS ---
Physician Documentation [facility] Name: Sheron Camargo Age: 66 yrs Sex: Female : 1955 Arrival Date: 05/18/2022 Time: 12:04 Bed 9 Private MD: ED Physician Eugenio Ribeiro HPI: 05/18 13:26 This 66 yrs old Black Female presents to ER via Ambulatory with complaints of Fall rn Injury, right hip pain, back pain, neck pain. 13:26 Details of fall: The patient fell from an upright position, while walking. Onset: The rn symptoms/episode began/occurred just prior to arrival. Associated injuries: The patient sustained neck injury, injury to the low back. Severity of symptoms: At their worst the symptoms were mild, in the emergency department the symptoms are unchanged. The patient has not experienced similar symptoms in the past. The patient has not recently seen a physician. Pt reports tripped on uneven road/construction, hit ground, presents with right hip pain, neck pain, lower back pain. Doesn't feel like anything broken. No head injury or LOC. . Historical: - Allergies: 12:20 Lisinopril; kb3 - PMHx: 12:20 Hypertensive disorder; Congestive heart failure; NIDDM; kb3 - PSHx: 12:20 None; kb3 - Immunization history:: Adult Immunizations up to date, Client reports having NOT received the Covid vaccine. Last tetanus immunization: up to date. - Social history:: Smoking status: Patient denies any tobacco usage or history of. - Family history:: not pertinent. - Hospitalizations: : No recent hospitalization is reported. ROS: 13:26 Constitutional: Negative for fever, chills, and weight loss, Neck: + neck pain and rn injury Cardiovascular: Negative for chest pain, palpitations, and edema, Respiratory: Negative for shortness of breath, cough, wheezing, and pleuritic chest pain, Abdomen/GI: Negative for abdominal pain, nausea, vomiting, diarrhea, and constipation, Back: + low back pain MS/Extremity: + right hip pain Skin: Negative for injury, rash, and discoloration, Neuro: Negative for headache, weakness, numbness, tingling, and seizure. Exam: 13:26 Constitutional: This is a well developed, well nourished patient who is awake, alert, rn and in no acute distress. Head/Face: Normocephalic, atraumatic. Eyes: Periorbital areas with no swelling, redness, or edema. Neck: NO midline cervical tenderness Chest/axilla: Normal chest wall appearance and motion. Nontender with no deformity. No lesions are appreciated. Cardiovascular: Regular rate and rhythm. No pulse deficits. Respiratory: No increased work of breathing, no retractions or nasal flaring. Abdomen/GI: Soft, non-tender Skin: Warm, dry MS/ Extremity: Pulses equal, no cyanosis. Neurovascular intact. + mild painful ROM right hip but has FROM. Neuro: Awake and alert, GCS 15 Vital Signs: 12:17 BP 142 / 75; Pulse 63; Resp 18; Temp 98.3; Pulse Ox 100% ; Weight 73.03 kg; Height 5 kb3 ft. 3 in. (160.02 cm); Pain 7/10; 12:17 Body Mass Index 28.52 (73.03 kg, 160.02 cm) kb3 MDM: 12:16 Patient medically screened. rn 14:32 Differential diagnosis: contusion, fracture, sprain, strain. Data reviewed: vital rn signs, nurses notes, radiologic studies, plain films, and as a result, I will discharge patient. Counseling: I had a detailed discussion with the patient and/or guardian regarding: the historical points, exam findings, and any diagnostic results supporting the discharge/admit diagnosis, radiology results, the need for outpatient follow up, to return to the emergency department if symptoms worsen or persist or if there are any questions or concerns that arise at home. Response to treatment: the patient's symptoms have mildly improved after treatment, and as a result, I will discharge patient. Special discussion: I discussed with the patient/guardian in detail that at this point there is no indication for admission to the hospital. It is understood, however, that if the symptoms persist or worsen the patient needs to return immediately for re-evaluation. 05/18 12:35 Order name: XRAY Hip LEFT 2 view; Complete Time: 14:31 rn 05/18 12:35 Order name: XRAY C Spine Ap/lat; Complete Time: 14:31 rn 05/18 12:35 Order name: XRAY Lumbar Spine (3 Views); Complete Time: 14:31 rn Administered Medications: No medications were administered Disposition Summary: 05/18/22 14:33 Discharge Ordered Location: Home rn Problem: new rn Symptoms: have improved rn Condition: Stable rn Diagnosis - Contusion of right hip rn - Strain of muscle, fascia and tendon of lower back rn - Strain of muscle, fascia and tendon at neck level, initial encounter rn Followup: rn - With: Private Physician - When: As needed - Reason: Recheck today's complaints, Re-evaluation by your physician Discharge Instructions: - Discharge Summary Sheet rn - Acute Back Pain, Adult rn - Cervical Strain and Sprain Rehab-SportsMed rn Forms: - Medication Reconciliation Form rn - Thank You Letter rn - Antibiotic rn family - Prescription Opioid Use rn Prescriptions: - Cyclobenzaprine 10 mg Oral Tablet - take 1 tablet by ORAL route every 8 hours As needed; 10 tablet; Refills: 0, rn Product Selection Permitted Signatures: Dispatcher [employer] Eugenio Nix MD MD rn Bradberry, Kelly, RN RN kb3 Corrections: (The following items were deleted from the chart) 12:21 12:20 PSHx: None; kb3 kb3
--- NOTE | 2022-05-18 14:34 | ER ---
Nurse's Notes [facility] Name: Sheron Camargo Age: 66 yrs Sex: Female : 1955 Arrival Date: 05/18/2022 Time: 12:04 Bed 9 Private MD: Diagnosis: Contusion of right hip;Strain of muscle, fascia and tendon of lower back;Strain of muscle, fascia and tendon at neck level, initial encounter Presentation: 05/18 12:17 Chief complaint: Patient states: tripped in a hole and fell forward, jarring her neck kb3 and back. Reports pain in posterior neck and bilateral lower back. injury occurred at approximately 11:00 this morning. Coronavirus screen: Vaccine status: Patient reports being unvaccinated. Client denies travel out of the [place] in the last 14 days. Ebola Screen: Patient negative for fever greater than or equal to 101.5 degrees Fahrenheit, and additional compatible Ebola Virus Disease symptoms Patient denies exposure to infectious person. Patient denies travel to an Ebola-affected area in the 21 days before illness onset. Initial Sepsis Screen: Does the patient meet any 2 criteria? No. Patient's initial sepsis screen is negative. Does the patient have a suspected source of infection? No. Patient's initial sepsis screen is negative. Risk Assessment: Do you want to hurt yourself or someone else? Patient reports no desire to harm self or others. Onset of symptoms was May 18, 2022 at 11:00. 12:17 Method Of Arrival: Ambulatory kb3 12:17 Acuity: MATI 4 kb3 Triage Assessment: 12:20 General: Appears in no apparent distress. Behavior is calm, cooperative. Pain: kb3 Complains of pain in back of neck, lumbar area, left low back, right low back and scalp Pain does not radiate. Pain currently is 7 out of 10 on a pain scale. Historical: - Allergies: 12:20 Lisinopril; kb3 - PMHx: 12:20 Hypertensive disorder; Congestive heart failure; NIDDM; kb3 - PSHx: 12:20 None; kb3 - Immunization history:: Adult Immunizations up to date, Client reports having NOT received the Covid vaccine. Last tetanus immunization: up to date. - Social history:: Smoking status: Patient denies any tobacco usage or history of. - Family history:: not pertinent. - Hospitalizations: : No recent hospitalization is reported. Vital Signs: 12:17 BP 142 / 75; Pulse 63; Resp 18; Temp 98.3; Pulse Ox 100% ; Weight 73.03 kg; Height 5 kb3 ft. 3 in. (160.02 cm); Pain 7/10; 12:17 Body Mass Index 28.52 (73.03 kg, 160.02 cm) kb3 ED Course: 12:04 Patient arrived in ED. mr 12:16 Eugenio Ribeiro MD is Attending Physician. rn 12:20 Triage completed. kb3 12:20 Arm band placed on right wrist. kb3 14:15 XRAY Hip LEFT 2 view In Process Unspecified. EDMS 14:15 XRAY C Spine Ap/lat In Process Unspecified. EDMS 14:15 XRAY Lumbar Spine (3 Views) In Process Unspecified. EDMS Administered Medications: No medications were administered Outcome: 14:33 Discharge ordered by MD. rn 14:45 Patient left the ED. jh5 Signatures: Dispatcher [employer] EDDE Gauri Browne mr Eugenio Ribeiro MD MD rn Rees, Jessica RN RN jh5 Lachelle Justice, RN RN kb3 Corrections: (The following items were deleted from the chart) 12:21 12:20 PSHx: None; kb3 kb3
[2022-05-18 14:48] VITALS: BP 142/75; TEMP 98.3; O2SAT 100
== END 2022-05-18 14:45 | disposition home or self-care (01) ==
LOC: ER 12:02
DX: S39.012A Strain of muscle, fascia and tendon of lower back, initial encounter (principal); S16.1XXA Strain of muscle, fascia and tendon at neck level, initial encounter; S70.01XA Contusion of right hip, initial encounter; I10 Essential (primary) hypertension; I50.9 Heart failure, unspecified; Z88.8 Allergy status to other drugs, medicaments and biological substances
CPT/HCPCS: 72040; 72100; 99282